=== PATIENT | female | born 2000 | race Caucasian/White ===

== ENCOUNTER 2020-12-30 11:11 | Emergency (ER) | payer OTHER, SELFPAY ==
--- NOTE | 2020-12-30 11:21 | ED.URI ---
HPI - URI/Sore Throat General Chief Complaint: Upper Respiratory Infection Stated Complaint: SOB/COUGH/FEVER/STUFFY NOSE/SORE THROAT Time Seen by Provider: 12/30/20 11:21 Source: patient and RN notes reviewed Mode of arrival: ambulatory Limitations: no limitations History of Present Illness HPI Narrative: 20-year-old female presents to the [facility] with complaints of stuffy nose, sore throat, cough, shortness of breath. The nasal symptoms and cough started yesterday, about 12 hours [employer]. Shortness of breath was when she woke up this morning but none currently. No treatment prior to arrival. Patient reports a 99.7 temp this morning and last night. 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 Patient states she has no concern for COVID-19 states she was concerned for RSV due to the Positives at work. Related Data Home Medications Medication Instructions Recorded Confirmed dextroamphetamine-amphetamine PO 12/30/20 fluoxetine mg 12/30/20 lamotrigine 12/30/20 norgestimate-ethinyl estradiol tablet 12/30/20 [Tri-Sprintec (28)] Allergies Allergy/AdvReac Type Severity Reaction Status Date / Time No Known Allergies Allergy Unverified 11/01/18 16:03 Review of Systems Review of Systems: All systems reviewed & are unremarkable except as noted in HPI and below Constitutional: Constitutional: Reports as per HPI, Denies fatigue, Reports fever(s) and Denies weakness Eyes: Eyes: Reports no additional eye complaints, Denies change in vision and Denies photophobia ENT: Reports as per HPI, Reports nasal congestion and Reports sore throat Cardiovascular: Cardiovascular: Reports no additional cardiovascular complaints and Denies chest pain Respiratory: Respiratory: Reports as per HPI, Reports cough and Reports dyspnea (this morning when she woke up) Gastrointestinal: Gastrointestinal: Reports no additional gastrointestinal complaints, Denies abdominal pain, Denies diarrhea, Denies nausea and Denies vomiting Musculoskeletal: Musculoskeletal: Reports no additional musculoskeletal complaints, Denies back pain, Denies arthralgias, Denies joint swelling and Denies muscle cramps Integumentary/Breasts: Skin/Breast: Reports system reviewed and no additional complaints, except as docu, Denies erythema and Denies rash Neurologic: Reports system reviewed and no additional complaints, except as documented, Denies dizziness, Denies headache(s) and Denies weakness Psychiatric: Psychiatric: Reports no additional psychiatric complaints Allergic/Immunologic: Allergic/Immunologic: Reports no additional allergic/immunologic complaints, Denies lip swelling, Denies throat swelling, Denies tongue swelling and Denies wheezing PMFSH Past Medical History Medical History ADHD Bipolar affect, depressed Surgical History Surgical History (Updated 12/30/20 @ 12:05 by Madison tSorm) History of surgical procedure on mouth Comments At the time of my signature, I reviewed and agree with the nursing past medical, surgical, social, and family history. There is no relevant family history pertinent to the patient complaint. Exam Const: General: healthy appearing and no acute distress Nutritional Appearance: well nourished Orientation/consciousness: patient oriented x3 Limitations: no limitations and altered mental status HENMT: Head: normal to inspection Ears: external ears normal, EAC's normal and TM abnormal wth effusion serous and with fluid behind the TM bilateral General nose exam: Nasal discharge present clear Face and sinus: sinuses nontender Mouth: Yes lip normal and Yes tongue normal Throat: postnasal drainage Eyes: Conjunctivae: conjunctivae normal Pupils: Equal, round and reactive pupils present Neck: Neck: normal visual inspection, no lymphadenopathy and no meningeal signs Chest: Chest palpation & inspection: normal inspection of the chest Resp:
[2020-12-30 11:23] VITALS: BP 124/84; PULSE 90; RESP 16; TEMP 36.9; O2SAT 100
== END 2020-12-30 11:38 | disposition home or self-care (01) ==
PROVIDERS: Emergency Provider Nurse Practitioner
DX: J06.9 Acute upper respiratory infection, unspecified (principal)
CPT/HCPCS: 99211; G0463

== ENCOUNTER 2021-03-20 11:31 | Emergency (ER) | payer OTHER, SELFPAY ==
[2021-03-20 11:37] VITALS: BP 126/82; PULSE 81; RESP 16; TEMP 36.9; O2SAT 99
[2021-03-20 11:43] VITALS: BP 129/87; PULSE 89; RESP 20; TEMP 36.8; O2SAT 99
--- NOTE | 2021-03-20 12:07 | ED.WOUNDLAC ---
HPI - Wound/Laceration General Chief Complaint: Wound/Laceration Stated Complaint: FINGER LACERATION Time Seen by Provider: 03/20/21 12:08 Source: patient and RN notes reviewed Mode of arrival: ambulatory Limitations: no limitations History of Present Illness HPI narrative: 20-year-old female presents concern for laceration to the first digit of the left hand, palmar aspect. She reports she was using a floor runner to remove the sticker from her phone when the scraper slipped and lacerated her hand, this happened prior to arrival. She denies decrease strength, sensation, range of motion to the digit. Patient is not up-to-date on her tetanus vaccination. Related Data Home Medications Medication Instructions Recorded Confirmed dextroamphetamine-amphetamine 20 mg PO DAILY 12/30/20 03/20/21 Allergies Allergy/AdvReac Type Severity Reaction Status Date / Time No Known Allergies Allergy Verified 03/20/21 11:41 Review of Systems Review of Systems: CONSTITUTIONAL: Denies malaise, chills, sweats, or fever. SKIN: Reports laceration to the first digit of the left hand MUSCULOSKELETAL: Denies muscle skeletal pain, decreased strength, sensation, range of motion NEUROLOGIC: Denies numbness, weakness. All systems reviewed & are unremarkable except as noted in HPI and below PMFSH Past Medical History Medical History ADHD Bipolar affect, depressed Surgical History Surgical History (Updated 12/30/20 @ 12:05 by Madison Storm) History of surgical procedure on mouth Comments At time of signature, agree with nursing past medical, surgical, social and family history. There is no relevant family history pertinent to the presenting complaint Exam Narrative: GENERAL: Well-appearing, well-nourished, and in no acute distress. HEAD: Normocephalic EYES: PERRLA, conjunctivae clear NECK: Supple. CHEST: Speaks in full sentences. No respiratory distress. HEART: Regular rate and rhythm. Normal and equal peripheral pulses. EXTREMITIES: First digit of left hand has normal strength and sensation. 5/5 strength with digit flexion, extension. Range of motion normal. No clubbing, cyanosis, or edema noted. No tenderness.Normal digital cascade with flexion of fingers, median, ulnar and radial nerve intact. Normal sensation of each side of finger. Can perform 'okay' sign, 'cross over finger test of index and middle fingers' and 'thumbs up' sign. No scissoring. Normal thumb opposition. Good capillary refill and radial pulse. Distal capillary refill less than 3 seconds. SKIN: Warn, dry, intact, pink. No rash. 1 cm linear laceration, superficial noted to the lateral palmar aspect of the first digit of the left hand NEURO: Alert and oriented x3. PSYCH: Normal mood and affect Course Course Emergency Course: Discussed options of suturing versus gluing of the laceration, through shared decision making it was decided to close laceration with glue since laceration is not into the subcutaneous tissue, and is fairly superficial. Will reinforce the glue with Steri-Strips. Patient is aware of diagnosis, understands and agrees to treatment plan. Anticipatory guidance given. Patient agrees to follow-up as directed and is aware of reasons to seek care at the emergency department. Portions of this record may have been created with voice recognition software Vital Signs Vital signs: Vital Signs Temperature 98.4 F 03/20/21 11:37 Pulse Rate 81 03/20/21 11:37 Respiratory Rate 16 03/20/21 11:37 Blood Pressure 126/82 03/20/21 11:37 Pulse Oximetry 99 03/20/21 11:37 Temperature 98.3 F 03/20/21 11:43 Pulse Rate 89 03/20/21 11:43 Respiratory Rate 20 03/20/21 11:43 Blood Pressure 129/87 03/20/21 11:43 Pulse Oximetry 99 03/20/21 11:43 Reviewed. Procedures Laceration Laceration 1: Date: 03/20/21 Time: 12:14 Site: hand Side (If applicable): left
[2021-03-20] MEDS: TETANUS,DIPHTHERIA,AC PERTUSSIS ADULT (0.5 ML) BOOSTRIX IM (12:40)
== END 2021-03-20 13:00 | disposition home or self-care (01) ==
PROVIDERS: Emergency Provider Nurse Practitioner
DX: S61.012A Laceration without foreign body of left thumb without damage to nail, initial encounter (principal); W27.8XXA Contact with other nonpowered hand tool, initial encounter; Z23 Encounter for immunization; F90.9 Attention-deficit hyperactivity disorder, unspecified type
CPT/HCPCS: 12001; 90471; 90715; 99212; G0463

== ENCOUNTER 2022-02-23 18:00 | Emergency (ER) | payer OTHER, SELFPAY ==
--- NOTE | ~2022-02-23 | CT_ITS ---
EXAMINATION: CT brain wo con DATE: 02/23/2022 19:25 INDICATION: hit head on floor . TECHNIQUE: Computed tomography (CT) of the head was performed without intravenous contrast. The mA wa s adjusted according to patient size. Iterative reconstruction technique was employed. The dose-lengt h product was 605.33 mGy-cm. COMPARISON: 11/01/2018 FINDINGS: No acute intracranial hemorrhage or extra-axial fluid collection. No hydrocephalus, mass, or herniation. No acute ischemic infarct. Unremarkable dural venous sinus attenuation. No acute osseous abnormality. The aerated spaces are clear. IMPRESSION: No acute intracranial process. Reviewed, dictated and finalized at location K.
--- NOTE | ~2022-02-23 | CT_ITS ---
EXAMINATION: CT cervical spine wo con DATE: 02/23/2022 19:28 INDICATION: hit head on floor TECHNIQUE: Computed tomography (CT) of the cervical spine was performed without intravenous contrast. Automated exposure control and iterative reconstruction technique were employed. The dose-length pro duct was 254.89 mGy-cm. COMPARISON: 11/01/2018 FINDINGS: Vertebral Body Alignment: Intact. Stable reversed cervical lordosis. Craniocervical and atlantoaxial alignment: No degenerative change. Alignment intact. Osseous structures/fracture: No evidence of a lytic or blastic process in the visualized spine. No e vidence of acute fracture. Cervical soft tissues: The paraspinal soft tissues planes are maintained. Degenerative changes: No significant degenerative changes. IMPRESSION: No acute fracture or traumatic malalignment in the cervical spine. Reviewed, dictated and finalized at location K.
[2022-02-23 18:33] VITALS: BP 128/87; PULSE 94; RESP 16; TEMP 36.7; O2SAT 100
--- NOTE | 2022-02-23 19:00 | PC.NURSE ---
hoda asif ct brain and c spine
--- NOTE | 2022-02-23 19:52 | ED.HEATRA ---
HPI - Head Injury General Chief complaint: Head Injury Stated complaint: hit head on wood floor, nausea migraine History of Present Illness HPI Narrative: 26 21-year-old female presents the emergency room for evaluation of a head injury. Patient states that she slipped on a puddle of water fell backwards and struck her head on a wood floor. Patient denies LOC or altered mental status. Patient denies nausea or vomiting. Patient denies somnolence. Patient reports mild headache. Took Tylenol and ibuprofen prior to arrival, states symptoms are improving. Related Data Home Medications Medication Instructions Recorded Confirmed dextroamphetamine-amphetamine ER 20 mg PO DAILY 12/30/20 03/20/21 20 mg 24hr capsule,extend release Allergies Allergy/AdvReac Type Severity Reaction Status Date / Time No Known Allergies Allergy Verified 02/23/22 18:39 Review of Systems Review of Systems: CONSTITUTIONAL: Denies fever, chills, or sweats. EYES: Denies visual changes, redness, or discharge. ENT: Denies rhinorrhea, congestion, sore throat, or otalgia. CARDIOVASCULAR: Denies chest pain, palpitations, or edema. RESPIRATORY: Denies cough or dyspnea. GASTROINTESTINAL: Denies abdominal pain, nausea, vomiting, or diarrhea. GENITOURINARY: Denies dysuria or hematuria. SKIN: Denies rash or itching. MUSCULOSKELETAL: Denies back pain, joint pain, or myalgia. NEUROLOGIC: Reports headache PSYCHIATRIC: Denies anxiety or depression. PMFSH Past Medical History Medical History ADHD Bipolar affect, depressed Surgical History Surgical History History of surgical procedure on mouth Exam Narrative: GENERAL: Well-appearing, well-nourished, no physical limitations, and in no acute distress. HEAD: Normocephalic, atraumatic. EYES: Conjunctivae normal, PERRLA and EOMI. ENT: External nose normal, Nares clear, no rhinorrhea or epistaxis. Mucous membranes moist. Oropharynx without tonsillar hypertrophy exudate or other lesions. External ears normal, bilateral TMs normal bilaterally CHEST: Clear to auscultation. No respiratory distress. No wheezes rales or rhonchi. No tenderness. HEART: Regular rate and rhythm. No murmur heard. Normal peripheral pulses. BACK: No cervical tenderness, step-offs, bony abnormality; FROM EXTREMITIES: Normal range of motion. No edema. No clubbing or cyanosis SKIN: Warm, dry, no rash. No noted wounds NEURO: No focal deficits. Alert and oriented x3. MAEW. CN's II-XI intact bilaterally, normal gait PSYCH: Cooperative. Normal mood and affect. Course Vital Signs Vital signs: Vital Signs Temperature 36.7 C 02/23/22 18:33 Pulse Rate 94 02/23/22 18:33 Respiratory Rate 16 02/23/22 18:33 Blood Pressure 128/87 02/23/22 18:33 Pulse Oximetry 100 02/23/22 18:33 Oxygen Delivery Room Air 02/23/22 18:33 Temperature 36.7 C 02/23/22 18:33 Pulse Rate 94 02/23/22 18:33 Respiratory Rate 16 02/23/22 18:33 Blood Pressure 128/87 02/23/22 18:33 Pulse Oximetry 100 02/23/22 18:33 Oxygen Delivery Room Air 02/23/22 18:33 MDM - Head Injury Imaging Data Radiologist's impression: Impressions Head CT 02/23/22 19:30 IMPRESSION: No acute intracranial process. Cervical Spine CT 02/23/22 19:33 IMPRESSION: No acute fracture or traumatic malalignment in the cervical spine. Discharge Plan Discharge Clinical Impression: Closed head injury Patient Disposition: Home, Self-Care Condition: Stable Instructions: Antibiotic Form, Concussion (ED), Head Injury (ED) Additional Instructions: Continue taking Tylenol and ibuprofen as needed for headaches. Prescriptions: No Action dextroamphetamine-amphetamine 20 mg capsule,extended release 24hr 20 mg PO DAILY Follow-up/Referrals: PHYSICIAN NOT ON STAFF,NONSTAFF [Primary Care
== END 2022-02-23 20:12 | disposition home or self-care (01) ==
PROVIDERS: Emergency Provider Nurse Practitioner Family
DX: S09.90XA Unspecified injury of head, initial encounter (principal); F90.9 Attention-deficit hyperactivity disorder, unspecified type; F31.9 Bipolar disorder, unspecified; W01.0XXA Fall on same level from slipping, tripping and stumbling without subsequent striking against object, initial encounter
CPT/HCPCS: 70450; 72125; 99284

== ENCOUNTER 2022-03-28 10:21 | Emergency (ER) | payer OTHER, SELFPAY ==
[2022-03-28 10:46] VITALS: BP 136/92; PULSE 91; RESP 18; TEMP 36.8; O2SAT 100
--- NOTE | 2022-03-28 10:54 | ED.WOUNDLAC ---
HPI - Wound/Laceration General Chief Complaint: Wound/Laceration Stated Complaint: laceration rt foot Time Seen by Provider: 03/28/22 10:50 Source: patient Mode of arrival: ambulatory Limitations: no limitations History of Present Illness HPI narrative: Nathalie is a 21-year-old female patient presenting to clinic today with complaints of a laceration to her right bottom foot. She reports that she stepped on glass Monday night and this cut her foot. She reports that she stay place super glue on it to close it. Tetanus shot is up-to-date. States that it is very painful to walk on and is concerned that it may be infected. Related Data Home Medications Medication Instructions Recorded Confirmed dextroamphetamine-amphetamine ER 20 mg PO DAILY 12/30/20 03/28/22 20 mg 24hr capsule,extend release Allergies Allergy/AdvReac Type Severity Reaction Status Date / Time No Known Allergies Allergy Verified 03/28/22 10:48 Review of Systems Review of Systems: Pertinent positives per HPI. Patient denies any fever, chills, rash, headache, visual changes, dizziness, cough, runny nose, sore throat, shortness of breath, chest pain, palpitations, nausea, vomiting, diarrhea, constipation, abdominal pain, or any urinary issues. PMFSH Past Medical History Medical History ADHD Bipolar affect, depressed Surgical History Surgical History History of surgical procedure on mouth Comments At the time of my signature, I reviewed and agree with the nursing past medical, surgical, social, and family history. There is no relevant family history pertinent to the patient complaint. Exam Narrative: General: Well-developed, well nourished, in no apparent distress Head: Normocephalic, atraumatic. Cardio: Regular rate and rhythm, s1 and s2 normal, no murmur appreciated. Resp: Clear to auscultation bilaterally, no rhonchi, rales, wheezing or rubs. Integumentary: [place], warm, and dry, flap laceration to the bottom of the rib right midfoot flap that has been closed with super glue by patient. Area is mildly tender to palpation. No redness or swelling noted. No purulent discharge. No palpable abscess Course Course Emergency Course: Portions of this record may have been created with voice recognition software. Level of Care: Express Care Visit Vital Signs Vital signs: Vital Signs Temperature 36.8 C 03/28/22 10:46 Pulse Rate 91 03/28/22 10:46 Respiratory Rate 18 03/28/22 10:46 Blood Pressure 136/92 H 03/28/22 10:46 Pulse Oximetry 100 03/28/22 10:46 Oxygen Delivery Room Air 03/28/22 10:46 Temperature 36.8 C 03/28/22 10:46 Pulse Rate 91 03/28/22 10:46 Respiratory Rate 18 03/28/22 10:46 Blood Pressure 136/92 H 03/28/22 10:46 Pulse Oximetry 100 03/28/22 10:46 Oxygen Delivery Room Air 03/28/22 10:46 Vital signs reviewed MDM - Wound/Laceration MDM Narrative Medical decision making narrative: At the time of visit patient is resting comfortably on the exam table. Patient has a closed wound to the right foot. Tetanus shot is up today. I see no signs of infection at this time. Supportive measures with observation discussed with the patient she voiced understanding of discharge instructions and agrees to treatment plan. Discharge Plan Discharge Clinical Impression: Laceration of foot Qualifiers: Encounter type: initial encounter Laterality: right Qualified Code(s): S91.311A - Laceration without foreign body, right foot, initial encounter Patient Disposition: Home, Self-Care Condition: Stable Instructions: Antibiotic Form Additional Instructions: Keep wound clean and dry May apply triple antibiotic ointment over the area twice daily times 48 hours Follow-up with your PCP in 3-5 days if symptoms persist or sooner if they worsen Watch for signs and symptoms
== END 2022-03-28 11:01 | disposition home or self-care (01) ==
PROVIDERS: Emergency Provider Nurse Practitioner Family
DX: S91.311A Laceration without foreign body, right foot, initial encounter (principal); W25.XXXA Contact with sharp glass, initial encounter; F90.9 Attention-deficit hyperactivity disorder, unspecified type
CPT/HCPCS: 99212; G0463

== ENCOUNTER 2022-09-09 20:51 | Emergency (ER) | payer OTHER, SELFPAY ==
[2022-09-09 20:58] VITALS: BP 139/88; PULSE 105; RESP 20; TEMP 36.6; O2SAT 99
--- NOTE | 2022-09-09 22:36 | PC.NURSE ---
Called for blood draw, no answer
--- NOTE | 2022-09-09 22:58 | PC.NURSE ---
Called pt a second time with no answer
== END 2022-09-09 23:06 | disposition left against medical advice (07) ==
DX: R10.31 Right lower quadrant pain (principal)
CPT/HCPCS: 99199

== ENCOUNTER 2022-12-24 01:54 | Emergency (ER) | payer OTHER, SELFPAY ==
--- NOTE | ~2022-12-24 | XR_ITS ---
EXAMINATION: XR tibia fibula RT 2V INDICATION: Right leg pain TECHNIQUE: Two views of the right tibia and fibula are obtained on three radiographs COMPARISON: None available FINDINGS: There is soft tissue swelling anterior to the distal tibia. Bone alignment is normal. There is no fracture. IMPRESSION: 1. Soft tissue swelling without acute osseous abnormality. Reviewed, dictated and finalized at location A.
[2022-12-24 02:02] VITALS: BP 137/90; PULSE 91; RESP 20; TEMP 36.8; O2SAT 99
--- NOTE | 2022-12-24 03:48 | ED.GENADULT ---
HPI - General Adult General Chief complaint: Extremity Injury, Lower Stated complaint: right foot injury Time Seen by Provider: 12/24/22 03:02 History of Present Illness HPI narrative: This is a 22-year-old female presenting ED with chief complaint of right barnes pain. the patient is was walking when she stepped into a PVC pipe and suffered an abrasion to her right barnes. She has been able to ambulate since then. She has not taken anything for pain. Patient admits to alcohol use. Related Data Home Medications Medication Instructions Recorded Confirmed dextroamphetamine-amphetamine ER 20 mg PO DAILY 12/30/20 03/28/22 20 mg 24hr capsule,extend release Allergies Allergy/AdvReac Type Severity Reaction Status Date / Time No Known Allergies Allergy Verified 12/24/22 02:49 [facility] Past Medical History Medical History ADHD Bipolar affect, depressed Surgical History Surgical History History of surgical procedure on mouth Exam Narrative: APPEARANCE: No apparent distress. Head: atraumatic. EYES: EOMI, NOSE: Atraumatic NECK: Trachea midline RESPIRATORY: No increased rate of breathing CARDIOVASCULAR: RRR, ABDOMINAL: Non-distended MUSCULOSKELETAl: Focal exam of the right lower extremity revealed a superficial abrasion over the right barnes with mild swelling. No significant bruising. No pain in the ankle or knee or foot. NEURO: Alert. Moving 4/4 extremities SKIN:: Small abrasion over the right barnes. PSYCHIATRIC: Normal affect Course Vital Signs Vital signs: Vital Signs Temperature 98.2 F 12/24/22 02:02 Pulse Rate 91 12/24/22 02:02 Respiratory Rate 20 12/24/22 02:02 Blood Pressure 137/90 12/24/22 02:02 Pulse Oximetry 99 12/24/22 02:02 Oxygen Delivery Room Air 12/24/22 02:02 Temperature 98.2 F 12/24/22 02:02 Pulse Rate 91 12/24/22 02:02 Respiratory Rate 20 12/24/22 02:02 Blood Pressure 137/90 12/24/22 02:02 Pulse Oximetry 99 12/24/22 02:02 Oxygen Delivery Room Air 12/24/22 02:02 Medical Decision Making [facility] Narrative Medical decision making narrative: -Presentation: 22-year-old female presenting with a barnes injury. 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 -Discussion of Management/Consultants: none -Dx tests considered but not ordered: none -Procedures: none -Interventions: Motrin, Tylenol -Shared decision making / Disposition: patient discharged. -RX Motrin, Tylenol Vital Signs Vital Signs: Vital Signs Temperature 98.2 F 12/24/22 02:02 Pulse Rate 91 12/24/22 02:02 Respiratory Rate 20 12/24/22 02:02 Blood Pressure 137/90 12/24/22 02:02 Pulse Oximetry 99 12/24/22 02:02 Oxygen Delivery Room Air 12/24/22 02:02 Temperature 98.2 F 12/24/22 02:02 Pulse Rate 91 12/24/22 02:02 Respiratory Rate 20 12/24/22 02:02 Blood Pressure 137/90 12/24/22 02:02 Pulse Oximetry 99 12/24/22 02:02 Oxygen Delivery Room Air 12/24/22 02:02 Discharge Plan Discharge Clinical Impression: Abrasion Patient Disposition: Home, Self-Care Condition: Stable Instructions: Antibiotic Form, Abrasion (ED) Additional Instructions: Please take Motrin Tylenol for pain. Please return if you develop signs of infection. Prescriptions: New ibuprofen 800 mg tablet 800 mg PO TID PRN (Reason: pain) 7 Days Qty: 21 0RF acetaminophen 500 mg tablet 1,000 mg PO TID PRN (Reason: alonzo) 7 Days Qty: 42 0RF No Action dextroamphetamine-amphetamine 20 mg capsule,ext
[2022-12-24] MEDS: ACETAMINOPHEN 500 MG TABLET 1000 MG PO (04:38)
[2022-12-24] MEDS: IBUPROFEN 400 MG TABLET 800 MG PO (04:40)
[2022-12-24 04:42] VITALS: BP 138/85; PULSE 91; RESP 20; O2SAT 100
== END 2022-12-24 04:43 | disposition home or self-care (01) ==
PROVIDERS: Emergency Provider Emergency Medicine
DX: S80.811A Abrasion, right lower leg, initial encounter (principal); F90.9 Attention-deficit hyperactivity disorder, unspecified type; F31.9 Bipolar disorder, unspecified; W18.39XA Other fall on same level, initial encounter
CPT/HCPCS: 73590; 99283; A9270

== ENCOUNTER 2023-03-16 11:58 | Emergency (ER) | payer OTHER, SELFPAY ==
[2023-03-16] VITALS (7 sets, daily range): BP systolic 145; BP diastolic 101; PULSE 95–116; RESP 20; TEMP 36.8; O2SAT 100
--- NOTE | ~2023-03-16 | XR_ITS ---
EXAMINATION: XR chest 2V DATE: 03/16/2023 12:29 INDICATION: Cough and wheezing. Shortness of breath. TECHNIQUE: Frontal and lateral views of the chest were obtained. COMPARISON: None. FINDINGS: There is no pneumonia, pleural effusion, or pneumothorax. The heart size is normal. IMPRESSION: 1. No acute cardiopulmonary disease. Reviewed, dictated and finalized at location E.
--- NOTE | 2023-03-16 12:06 | ED.URI ---
HPI - URI/Sore Throat General Chief Complaint: Upper Respiratory Infection Stated Complaint: SOB, cough Time Seen by Provider: 03/16/23 12:03 History of Present Illness HPI Narrative: Patient is a 22-year-old female who presents to the emergency department this afternoon complaining of a cough and shortness of breath. Patient states that her symptoms initially started approximately 1 month ago and she saw her primary care physician who placed her on an antibiotic and some cough medications. At that time her COVID swabs were negative. Patient states that she finished the dose of antibiotics, however, she continues to have a dry cough and shortness of breath. Patient then saw her primary care physician again this week on Monday and he placed her on levofloxacin, benzonatate, and an inhaler for bronchitis. Patient states that she took a home COVID test a few days ago which was negative. Patient started the medications she was prescribed yesterday and has only had 1 dose of the antibiotics and the benzonatate. 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 Currently there is a large number of hand foot and mouth disease in her daycare. Patient denies any chest pain, nausea, vomiting, abdominal pain, dysuria, hematuria, constipation, diarrhea, melena, hematochezia, fevers or chills. She also denies any headaches, dizziness, lightheadedness, blurry visions, dizziness, focal weakness, numbness and or tingling. There are no other modifying, alleviating, or precipitating factors at this time. Related Data Home Medications Medication Instructions Recorded Confirmed No Home Medications 03/16/23 03/16/23 Allergies Allergy/AdvReac Type Severity Reaction Status Date / Time No Known Allergies Allergy Verified 03/16/23 12:05 Review of Systems Review of Systems: All systems are reviewed and are negative unless stated otherwise in the HPI. [facility] Past Medical History Medical History ADHD Bipolar affect, depressed Surgical History Surgical History History of surgical procedure on mouth Exam Narrative: General: Alert, awake, afebrile, in no acute distress. HEENT: PERRL, no rhinorrhea, no post nasal drip, oropharynx clear. Neck: Trachea midline, no JVD, no lymphadenopathy. Cardiovascular: Regular rate and rhythm, no murmurs, rubs or gallops, no peripheral edema. Respiratory: Diffuse bilateral wheezing worse in the left lower lung field, no tachypnea, no rhonchi, no rubs, no respiratory distress. Abdomen: Soft, nontender, nondistended, no rebound, no guarding, no peritoneal signs. Musculoskeletal: No joint swelling or deformity, normal muscle tone. Skin: No rashes or petechia, no signs of infection. Psychiatric: Alert and oriented, normal behavior and judgment for situation. Neurological: Alert and oriented to person, place, and time. Follows all commands. No focal deficits, speech is clear and fluent. Course Vital Signs Vital signs: Vital Signs Temperature 98.2 F 03/16/23 11:59 Pulse Rate 107 H 03/16/23 11:59 Respiratory Rate 20 03/16/23 11:59 Blood Pressure 145/101 H 03/16/23 11:59 Pulse Oximetry 100 03/16/23 11:59 Oxygen Delivery Room Air 03/16/23 11:59 Temperature 98.2 F 03/16/23 11:59 Pulse Rate 116 H 03/16/23 13:22 Respiratory Rate 20 03/16/23 13:22 Blood Pressure 145/101 H 03/16/23 11:59 Pulse Oximetry 100 03/16/23 11:59 Oxygen Delivery Room Air 03/16/23 11:59 MDM - URI/Sore Throat MDM Narrative Medical decision making narrative: The patient was evaluated by myself in the emergency department. History is obtained from patient who is an independent historian and physical exam was performed. External medical records were reviewed at this time. IV was established and pertinent tests we
--- NOTE | 2023-03-16 12:07 | ECG_ITS ---
Measurements Intervals [place] Rate: 98 P: 63 MA: 151 QRS: 23 QRSD: 84 T: 14 QT: 289 QTc: 370 Interpretive Statements SINUS RHYTHM POSSIBLE LEFT ATRIAL ENLARGEMENT BORDERLINE ST-T WAVE ABNORMALITY- ANTEROLAT/INF LEADS BASELINE WANDER- III, V4-V6 BORDERLINE ECG NO PREVIOUS ECG AVAILABLE FOR COMPARISON Electronically Signed On 03-16-2023 14:21:08 CDT by Geovany Wisdom D.O.
[2023-03-16] MEDS: ALBUTEROL SULFATE NEB 2.5 MG/3 ML INH INHALATION ×3 (12:39→13:03)
[2023-03-16] MEDS: IPRATROPIUM BR 0.02% INH SOLN 0.5 MG/2.5 ML VIAL INHALATION ×3 (12:40→13:03)
[2023-03-16 13:00] LABS: Influenza A QL RT-PCR Negative (Negative); Influenza B QL RT-PCR Negative (Negative); RSV RNA, RT-PCR Negative (Negative); SARS-CoV-2 RNA PCR Negative (Negative)
== END 2023-03-16 14:20 | disposition home or self-care (01) ==
PROVIDERS: Emergency Provider Emergency Medicine
DX: J06.9 Acute upper respiratory infection, unspecified (principal); J40 Bronchitis, not specified as acute or chronic; Z20.822 Contact with and (suspected) exposure to COVID-19
CPT/HCPCS: 71046; 87637; 93005; 94640; 99285

== ENCOUNTER 2024-01-28 18:34 | Emergency (ER) | payer SELFPAY ==
--- NOTE | ~2024-01-28 | CT_ITS ---
CT brain wo con Ordering provider: Ronadl Peterson MD History: 23 years Female with . fall . Comparison: None. Technique: CT of the head without contrast. Radiation reduction technique utilized.The dose-length product was 529.67 mGy-cm. FINDINGS: BRAIN PARENCHYMA AND CSF SPACES: No midline shift, mass effect or hemorrhage. The brain parenchyma a nd CSF spaces are otherwise normal. VISUALIZED PARANASAL SINUSES: Minimal left ethmoid sinus disease. MASTOIDS: Well aerated. BONES: The bones appear intact. SOFT TISSUES: Visualized nasopharynx is normal. Superficial soft tissues are normal. IMPRESSION: No acute intracranial findings. Reviewed, dictated and finalized at location A.
--- NOTE | ~2024-01-28 | CT_ITS ---
CT cervical spine wo con Ordering provider: Ronald Peterson History: . fall . Comparison: February 23, 2022 Technique: CT of the cervical spine was performed without contrast. Sagittal and coronal reformatted images were also obtained and reviewed. Automated exposure control and iterative reconstruction aaliyah hnique were employed. The dose-length product was 392.23 mGy-cm. FINDINGS: VERTEBRAE: No subluxation or acute fracture. The occipital condyles are intact. DISC SPACES: Normal. Evaluation of the neural foramina and central canal are limited without intrath ecal contrast. PARASPINOUS SOFT TISSUES: Right and left parapharyngeal lymph nodes. The largest measures 1.1 cm. IMPRESSION: No acute osseous abnormality cervical spine. Reviewed, dictated and finalized at location A.
[2024-01-28 19:18] VITALS: BP 130/95; PULSE 78; RESP 14; TEMP 36.8; O2SAT 100
--- NOTE | 2024-01-28 20:44 | ED.FALL ---
HPI - Fall General Chief Complaint: Fall Stated Complaint: requesting a neck xray Time Seen by Provider: 01/28/24 20:10 Source: patient Mode of arrival: ambulatory Limitations: no limitations History of Present Illness HPI Narrative: This is a 23 year old female that presents to the ER for a fall last night with head injury. Reports she was seated on the edge of a hot tub and fell off backwards and hit her head. She did not lose consciousness. Reports she has had headaches and neck pain today. Denies vomiting, numbness or weakness. Related Data Home Medications Medication Instructions Recorded Confirmed No Home Medications 03/16/23 03/16/23 Allergies Allergy/AdvReac Type Severity Reaction Status Date / Time gluten Allergy Gastrointestinal Verified 01/28/24 18:37 Upset Review of Systems Review of Systems: CONSTITUTIONAL: Denies fever EYES: Denies visual changes MUSCULOSKELETAL: Reports myalgia. NEUROLOGIC: Reports headache. Denies numbness, or weakness. All systems reviewed & are unremarkable except as noted in HPI and below PMFSH Past Medical History Medical History ADHD Bipolar affect, depressed Surgical History Surgical History History of surgical procedure on mouth Social History Social History (Updated 01/28/24 @ 20:45 by Erin Cruz PA-C) Smoking status: Current some day smoker Exam Narrative: GENERAL: Well-appearing, well-nourished, and in no acute distress. HEAD: Normocephalic, atraumatic. EYES: PERRLA and EOMI. ENT: Nares clear, no rhinorrhea or epistaxis. Mucous membranes moist. Oropharynx without tonsillar hypertrophy exudate or other lesions. Bilateral TMs pearly sosa non-bulging NECK: Supple. No adenopathy or masses. CHEST: Clear to auscultation. No respiratory distress. No wheezes rales or rhonchi HEART: Regular rate and rhythm. No murmur heard. Normal peripheral pulses. EXTREMITIES: Normal range of motion. No edema. strength equal in bilateral upper and lower extremities (5/5) SKIN: Warm, dry, no rash. NEURO: No focal deficits. Alert and oriented x3. cranial nerves 2-12 grossly PSYCH: Normal mood and affect Course Course Emergency Course: patient updated on workup and agrees with plan of care Vital Signs Vital signs: Vital Signs Temperature 98.3 F 01/28/24 19:18 Pulse Rate 78 01/28/24 19:18 Respiratory Rate 14 01/28/24 19:18 Blood Pressure 130/95 H 01/28/24 19:18 Pulse Oximetry 100 01/28/24 19:18 Temperature 98.3 F 01/28/24 19:18 Pulse Rate 78 01/28/24 19:18 Respiratory Rate 14 01/28/24 19:18 Blood Pressure 130/95 H 01/28/24 19:18 Pulse Oximetry 100 01/28/24 19:18 MDM - Fall MDM Narrative Medical decision making narrative: Patient presents to the ER after a fall last night with headache and neck pain. she is neurologically intact. CT brain and cervical spine without acute findings. Patient was instructed on further care of concussion. She is to follow up with primary provider. She was given warnings to return to the ER Differential Diagnosis Differential diagnosis: Likely concussion without loss of consciousness and other (subdural hematoma, cervical spine fracture, cervical strain) Imaging Data Radiologist's impression: ITS Impressions Head CT 01/28/24 18:53 IMPRESSION: No acute intracranial findings. Cervical Spine CT 01/28/24 19:07 IMPRESSION: No acute osseous abnormality cervical spine. Critical Care Time Critical Care Time Critical Care Time: No Discharge Plan Discharge Clinical Impression: Head injury Qualifiers: Encounter type: initial encounter Qualified Code(s): S09.90XA - Unspecified injury of head, initial encounter Patient Disposition: Home, Self-Care Instructions: Concussion (ED), Head Injury (ED) Additional Instructions: Return
== END 2024-01-28 21:07 | disposition home or self-care (01) ==
PROVIDERS: Emergency Provider Physician Assistant
DX: S09.90XA Unspecified injury of head, initial encounter (principal); W17.89XA Other fall from one level to another, initial encounter; F90.9 Attention-deficit hyperactivity disorder, unspecified type; F32.A Depression, unspecified; F17.210 Nicotine dependence, cigarettes, uncomplicated
CPT/HCPCS: 70450; 72125; 99284

== ENCOUNTER 2024-08-23 09:38 | Emergency (ER) | payer OTHER, SELFPAY ==
[2024-08-23] VITALS (13 sets, daily range): BP systolic 122–142; BP diastolic 89–103; PULSE 80–96; RESP 18–35; TEMP 36.6; O2SAT 99–100
--- NOTE | ~2024-08-23 | XR_ITS ---
XR chest 2V 08/23/2024 10:54 Indication: Chest pain and shortness of breath Procedure: 2 view chest Comparison: 03/16/2023 Findings: Heart size normal. No focal air space disease, pulmonary edema, pleural effusion or suspect ed pneumothorax. No acute osseous abnormality. There is dextroscoliosis of the thoracic spine. Impression: 1: No acute cardiopulmonary disease. Reviewed, dictated and finalized at location A. Impression: 1: No acute cardiopulmonary disease.
--- OUTSIDE RECORDS SUMMARY | 2024-08-23 10:03 | XMS_ITS | Clinical Summary ---
Author Organization [address] Address [address] [place] [id number] Care Team Providers Care Wool Hat Hydraulicker Name Role Phone Zoila Chicas MD Primary Care Provider [phone] Allergies No known active allergies Medications ergocalciferol (VITAMIN D2) 50,000 unit capsule take 1 capsule by oral route every week 0 0 7 Active omega 1-fem-xec-fish oil (FISH OIL) 1,000 mg (120 mg-180 mg) capsule 0 0 7 Active dextroamphetami ne-amphetamine (ADDERALL) 20 mg tablet take 1 tablet by oral route every day before breakfast 0 0 7 Active Active Problems No known active problems Encounters Date Type Department Care Team Description 06/13/2024 10:09 AM PLANTING MACHINE OPERATOR - 06/13/2024 11:59 PM PLANTING MACHINE OPERATOR Hospital Encounter [facility] [place] [address] Uncomplicated asthma, unspecified asthma severity, unspecified whether persistent Discharge Disposition: Discharge to home or self care from Last 3 Months Family History Medical History Relation Name Comments ADD / ADHD Other Family history of ADD/ADHD; Cancer Other Family history of Cancer, unknown; Depression Other Family history of Depression; Mental illness Other Family histor y of Mental illness; Relation Name Status Comments Other Social History Tobacco Use Types Packs/Day Years Used Date Smoking Tobacco: Never Assessed Comments Unknown Sex and Gender Information Value Date Recorded Sex Assigned at Not on file Legal Sex Female 2:28 PM CDT Gender Identity Not on file Sexual Orientation Not on file Obstetrics History Last Filed Vital Signs Vital Sign Reading Time Taken Comments Blood Pressure 116/82 07/06/2022 2:38 PM PLANTING MACHINE OPERATOR Pulse 88 07/06/2022 2:38 PM PLANTING MACHINE OPERATOR Temperature 36.8 C (98.2 F) 07/06/2022 2:38 PM PLANTING MACHINE OPERATOR Respiratory Rate 16 07/06/2022 2:38 PM PLANTING MACHINE OPERATOR Oxygen Saturation 99% 06/13/2024 10: 40 AM PLANTING MACHINE OPERATOR albuterol neb with PFT per protocol Inhaled Oxygen Concentration - - Weight 80.7 kg (178 lb) 07/06/2022 2:38 PM PLANTING MACHINE OPERATOR Height 175.3 cm (5' 9 ) 07/06/2022 2:38 PM PLANTING MACHINE OPERATOR Body Mass Index 26.29 07/06/2022 2:38 PM PLANTING MACHINE OPERATOR Plan of Treatment Health Maintenance Due Date Last Done Comments Cervical Cancer Screening 2000 Depression Screening 2000 Hepatitis C Screening 2000 Pneumococcal vaccine <65 (1 of 1 - PPSV23) 2006 11/07/2005, 12/27/2001, 08/30/2001, Additional history exists Regular Well Visit/Exam 18-64 2018 Covid-19 Vaccine (2023-2 5 season) 2024 07/25/2020, 06/26/2020 Influenza Vaccine (Season Ended) 2025 05/19/2016, 06/07/2013, 04/24/2012, Additional history exists DTaP/Tdap/Td Vaccine (8 - Td or Tdap) 03/20/2031 03/20/2021, 10/12/2011, 11/07/2005, Additional history exists Hepatitis B Screening Completed 12/27/2001 , 08/30/2001, 02/01/2001 Varicella Vaccines Completed 07/14/2008, 08/30/2001 HPV Vaccines Completed 03/07/2013, 0706/2012, 08/07/2012 Procedures Procedure Name Priority Date/Time Associated Diagnosis Comments PULMONARY FUNCTION TEST (PFT) Routine 06/13/2024 11:23 AM PLANTING MACHINE OPERATOR Uncomplicated asthma, unspecified asthma severity, unspecified whether persistent from Last 3 Months Results * Pulmonary Function Test - (06/13/2024 11:23 AM PLANTING MACHINE OPERATOR) FVC POST 3.81 L 06/13/2024 11:21 AM [facility] FEV1 POST 3.21 L 06/13/2024 11:21 AM [facility] [id number] 84.29 % 06/13/2024 11:21 AM [facility] GMO83-89% POST 3.45 L/s 06/13/2024 11:21 AM [facility] PEF POST 7.66 L/s 06/13/2024 11:21 AM [facility] DLCOc SB 24.08 ml/(min*mm Hg) 06/13/2024 11:21 AM [facility] DLCO/VA PRE 5.24 ml/(min*mm Hg*L) 06/13/2024 11:21 AM [facility] VA 4.60 L 06/13/2024 11:21 AM [facility] TLC PRE 4.93 L 06/13/2024 11:21 AM [facility] VC PRE 3.95 L 06/13/2024 11:21 AM [facility] IC PRE 2.63 L 06/13/2024 11:21 AM [facility] FRC PL PRE 2.28 L 06/13/2024 11:21 AM [facility] ERV PRE 1.30 L 06/13/2024 11:21 AM [facility] RV PRE 0.98 L 06/13/2024 11:21 AM [facility] RAW PRE 6.13 cmH2O*s/L 06/13/2024 11:21 AM [facility] VTG 2.03 L 06/13/2024 11:21 AM [facility] FVC PRE 3.95 L 06/13/2024 11:21 AM [facility] FEV1 PRE 3.03 L 06/13/2024 11:21 AM [facility] BNT0DAG-PCD 76.65 % 06/13/2024 11:21 AM [facility] ODG23-61% PRE 2.59 L/s 06/13/2024 11:21 AM [facility] PEF PRE 6.23 L/s 06/13/2024 11:21 AM [facility] Anatomical Region Laterality Modality PFT 06/13/2024 10:1 4 AM PLANTING MACHINE OPERATOR Impressions 06/16/2024 8:19 PM PLANTING MACHINE OPERATOR 1. Normal spirometry and lung volumes 2. Mild diffusion impairment Electronically signed by Waqas Li MD Pulmonary & Critical Care Narrative 06/16/2024 8:19 PM PLANTING MACHINE OPERATOR PULMONARY FUNCTION TESTS Nathalie Lara 23 y.o. 06/16/2024 INTERPRETATION Please see technologist's comments mentioned in attached results report. SPIROMETRY: Pre bronchodilator FEV1 is 79 % predicted, FVC is 88 % predicted, FEV1/FVC is 0.77. Post-bronchodilator FEV1 83% predicted, FVC 85% predicted, FEV1/FVC 0.84 Bronchodilator response: No Inspection of the patient's flow-volume loops shows: Normal configuration of the inspiratory and expiratory limbs. LUNG VOLUMES: Lung volumes by body plethysmography: TLC is 86 % predicted, RV is 62 % predicted DLCO: Unadjusted for hemoglobin and carboxyhemoglobin DLCO is 78 % predicted Joseph Aguilar MD PFT ORDERABLES Final Resul t from Last 3 Months [facility] AETNA SIGNATURE [employer] Care Teams Wool Hat Hydraulicker Relationship Specialty Start Date End Date Zoila Chicas MD [address] [place] [address] [place] [id number] PCP - General 08/18/16
--- OUTSIDE RECORDS SUMMARY | 2024-08-23 10:03 | XMS_ITS | Clinical Summary ---
Author Organization [facility] Address [address] [place] [address] Care Team Providers Care Summer Babysitter Name Role Phone Davon Valiente MD Primary Care Provider [phone] Source Comments [facility],non-owned Affiliates and Associated Physician Practices is amultiple site organization consisting of ambulatory clinics and hospital sitesin [place], [place], [place] and [place]. This disclosure is being madepursuant to the Care Everywhere program and may not contain all information available regarding this patient. Last updated 18.[facility] dermSearch Allergies No known active allergies Medications * Be aware that medications may not be up to date on this document. Alwaysverify current medications with the patient. Medication Sig Dispensed Refills Start Date End Date Status amphetamine-dextroamp hetamine XR 24hr (ADDERALL XR) 20 MG capsule Take 15 mg by mouth every morning Active ibuprofen (MOTRIN) 600 MG tablet Take 1 tablet by mouth every 8 hours as needed for Pain 20 tablet 03/01/2017 Active Cetirizine HCl (ZYRTEC PO) Active LAMOTRIGINE PO Active Norgestim-Eth Estrad Triphasic (TRINESSA, 28, PO) Active [place]-3 Fatty Acids (FISH OIL) 1000 MG capsule Take 1,000 mg by mouth Active Cholecalciferol (VITAMIN D3) 400 UNITS tablet Take 400 Units by mouth once daily Active melatonin 3 MG tablet Take 9 mg by mouth at bedtime Active Active Problems Problem Noted Date Diagnosed Date Scoliosis (and kyphoscoliosis), idiopathic Overview (02/12/2021): IMO 2021 Family History Medical History Relation Name Comments Cancer Maternal Grandmother Relation Name Status Comments Maternal Grandmother Social History Tobacco Use Types Packs/Day Years Used Date Smoking Tobacco: Never Smokeless Tobacco: Never Alcohol Use Standard Drinks/Week Comments No 0 (1 standard drink = 0.6 oz pur e alcohol) PHQ-2 Answer Date Recorded PHQ2 TOTAL SCORE 0 11/18/2020 Sex and Gender Information Value Date Recorded Sex Assigned at Not on file Gender Identity Not on file Sexual Orientation Not on file Last Filed Vital Signs Vital Sign Reading Time Taken Comments Blood Pressure 112/78 11/18/2020 4:20 PM CDT Pulse 94 11/18/2020 4:20 PM CDT Temperature 36.8 C (98.3 F) 11/18/2020 4:20 PM CDT Respiratory Rate 16 11/18/2020 4:20 PM CDT Oxygen Saturation 98% 11/18/2020 4:20 PM CDT Inhaled Oxygen Concentration - - Weight 81.6 kg (180 lb) 11/18/2020 4:20 PM CDT Height 175.3 cm (5' 9 ) 11/18/2020 4:20 PM CDT Body Mass Index 26.58 11/18/2020 4:20 PM CDT Plan of Treatment Health Maintenance Due Date Last Done Comments PAP SMEAR 2000 HIV SCREENING 07/28/2015 HPV VACCINE (1 - 3-dose series) 07/28/2015 CHLAMYDIA/GONORRHEA SCREENING 2016 HEPATITIS C SCREENING 07/23/2018 DTAP/TDAP/TD VACCINES (1 - Tdap) 07/28/2019 HEPATITIS B VACCINE (1 of 3 - 19+ 3-dose series) 07/28/2019 COVID-19 VACCINE (3 - 2023-2 5 season) 2024 07/25/2020, 06/26/2020 DEPRESSION SCREENING 05/15/2024 INFLUENZA VACCINE (Season Ended) 2025 06/07/2013 ZOSTER VACCINE (1 of 2) 2050 HIB VACCINE Aged Out No longer eligi ble based on patient's age to complete this topic MENINGOCOCCAL (Group B) VACCINE SHARED DECISION-MAKING Aged Out No longer eligible based on patient's age to complete this topic MENINGOCOCCAL GROUPS A/C/Y/W VACCINE Aged Out No longer eligible b ased on patient's age to complete this topic PNEUMOCOCCAL VACCINE Aged Out No long er eligible based on patient's age to complete this topic Care Teams Summer Babysitter Relationship Specialty Start Date End Date Davon Valiente MD [address] [id number] PCP - General Allergy and Immunology 06/06/18
--- OUTSIDE RECORDS SUMMARY | 2024-08-23 10:03 | XMS_ITS | Referral Summary ---
Author Organization [address] Address [address] [place] [id number] Care Team Providers Care Service Officer Name Role Phone Zoila Chicas MD Primary Care Provider [phone] Encounters Date Type Department Care Team Description 06/13/2024 10:09 AM VOICE OVER ANNOUNCER - 06/13/2024 11:59 PM VOICE OVER ANNOUNCER Hospital Encounter [facility] [address] [place] [address] Uncomplicated asthma, unspecified asthma severity, unspecified whether persistent Discharge Disposition: Discharge to home or self care from Last 3 Months Allergies No known active allergies Medications ergocalciferol (VITAMIN D2) 50,000 unit capsule take 1 capsule by oral route every week 0 0 7 Active omega 0-njc-mvv-fish oil (FISH OIL) 1,000 mg (120 mg-180 mg) capsule 0 0 7 Active dextroamphetami ne-amphetamine (ADDERALL) 20 mg tablet take 1 tablet by oral route every day before breakfast 0 0 7 Active Active Problems No known active problems Social History Tobacco Use Types Packs/Day Years Used Date Smoking Tobacco: Never Assessed Comments Unknown Sex and Gender Information Value Date Recorded Sex Assigned at Not on file Legal Sex Female 2:28 PM CDT Gender Identity Not on file Sexual Orientation Not on file Last Filed Vital Signs Vital Sign Reading Time Taken Comments Blood Pressure 116/82 07/06/2022 2:38 PM VOICE OVER ANNOUNCER Pulse 88 07/06/2022 2:38 PM VOICE OVER ANNOUNCER Temperature 36.8 C (98.2 F) 07/06/2022 2:38 PM VOICE OVER ANNOUNCER Respiratory Rate 16 07/06/2022 2:38 PM VOICE OVER ANNOUNCER Oxygen Saturation 99% 06/13/2024 10: 40 AM VOICE OVER ANNOUNCER albuterol neb with PFT per protocol Inhaled Oxygen Concentration - - Weight 80.7 kg (178 lb) 07/06/2022 2:38 PM VOICE OVER ANNOUNCER Height 175.3 cm (5' 9 ) 07/06/2022 2:38 PM VOICE OVER ANNOUNCER Body Mass Index 26.29 07/06/2022 2:38 PM VOICE OVER ANNOUNCER Plan of Treatment Not on file Procedures Procedure Name Priority Date/Time Associated Diagnosis Comments PULMONARY FUNCTION TEST (PFT) Routine 06/13/2024 11:23 AM VOICE OVER ANNOUNCER Uncomplicated asthma, unspecified asthma severity, unspecified whether persistent from Last 3 Months Results * Pulmonary Function Test - (06/13/2024 11:23 AM VOICE OVER ANNOUNCER) FVC POST 3.81 L 06/13/2024 11:21 AM [facility] FEV1 POST 3.21 L 06/13/2024 11:21 AM [facility] [id number] 84.29 % 06/13/2024 11:21 AM [facility] TZF13-41% POST 3.45 L/s 06/13/2024 11:21 AM [facility] PEF POST 7.66 L/s 06/13/2024 11:21 AM [facility] DLCOc SB 24.08 ml/(min*mm Hg) 06/13/2024 11:21 AM [facility] DLCO/VA PRE 5.24 ml/(min*mm Hg*L) 06/13/2024 11:21 AM [facility] VA 4.60 L 06/13/2024 11:21 AM [facility] TLC PRE 4.93 L 06/13/2024 11:21 AM [facility] VC PRE 3.95 L 06/13/2024 11:21 AM [facility] IC PRE 2.63 L 06/13/2024 11:21 AM [facility] FRC PL PRE 2.28 L 06/13/2024 11:21 AM [facility] ERV PRE 1.30 L 06/13/2024 11:21 AM [facility] RV PRE 0.98 L 06/13/2024 11:21 AM [facility] RAW PRE 6.13 cmH2O*s/L 06/13/2024 11:21 AM [facility] VTG 2.03 L 06/13/2024 11:21 AM [facility] FVC PRE 3.95 L 06/13/2024 11:21 AM [facility] FEV1 PRE 3.03 L 06/13/2024 11:21 AM [facility] [id number] 76.65 % 06/13/2024 11:21 AM [facility] QNX48-81% PRE 2.59 L/s 06/13/2024 11:21 AM [facility] PEF PRE 6.23 L/s 06/13/2024 11:21 AM [facility] Anatomical Region Laterality Modality PFT 06/13/2024 10:1 4 AM VOICE OVER ANNOUNCER Impressions 06/16/2024 8:19 PM VOICE OVER ANNOUNCER 1. Normal spirometry and lung volumes 2. Mild diffusion impairment Electronically signed by Waqas Li MD Pulmonary & Critical Care Narrative 06/16/2024 8:19 PM VOICE OVER ANNOUNCER PULMONARY FUNCTION TESTS Nathalie Lara 23 y.o. [...] and carboxyhemoglobin DLCO is 78 % predicted us Joseph Aguilar MD PFT ORDERABLES Final Resul t from Last 3 Months Insurance [employer] I[employer] [facility] AETNA SIGNATURE [employer] Care Teams Service Officer Relationship Specialty Start Date End Date Zoila Chicas MD [address] [place] [id number] PCP - General 08/18/16
--- OUTSIDE RECORDS SUMMARY | 2024-08-23 10:03 | XMS_ITS | Data Portability ---
Author Organization [facility] [place] Address [address] [place] [address] Assessment Encounter Date Assessment Date Assessment LastModified by Organization Details LastModified Time 07/20/2022 07/20/2022 Annual gynecological exam performed. Patient will come back in a year unless there are new symptoms. [email or web address] Not available 07/20/2022 11:57:57 Plan of Treatment Reminders Order Date Submit Date Provider Last Modified By Organization Details Last Modified Time Details Appointments None recorded. Lab None recorded. Referral None recorded. Procedures None recorded. Surgeries None recorded. Imaging None recorded. Medication Orders metronidazo le 0.75 % (37.5 mg/5 gram) vaginal gel 2022 023 [place] [id number], [address] [facility], [place], [place], [id number], 3 11:53:09 Junel Fe 24 1 mg-20 mcg (24)/75 mg (4) tablet 2022 023 [facility][id number], [address] [place], [place], [id number], 3 11:52:18 Patient TargetsNo targets recorded. Patient InstructionsNo instructions recorded. Reason for Referral None Reported. Results Created Date Observation Date Name Description Value Unit Range Abnormal Flag Note LastModifiedBy Organization Detail LastModifiedTime 07/21/19 23 07/20/2022 CT/GC (ALESSANDRO) , THINP REP VIAL chlamydia trachomatis, PCR Negati ve negati ve Not Available [facility] (Lab) [address] [facility], [place], [address], 07/25/2022 20:34:34 07/21/19 23 07/20/2022 CT/GC (ALESSANDRO) , THINP REP VIAL neisseria gonorrhoeae, PCR Negati ve negati ve Not Available [facility] (Lab) [address] [facility], [place], [address], 07/25/2022 20:34:34 07/21/19 23 07/20/2022 TRICH OMONA S VAGIN BRENDA (RRNA ) trichomonas vaginalis ribosomal RNA (rrna) Negati ve negati ve Not Available [facility] (Lab) [address] [facility], [place], [address], 07/25/2022 20:34:34 Result Notes None recorded. Procedures Surgical History Date Name Laterality Status Provider Name and Address Organization Details Recorded Time dental surgical procedure completed [facility] 07/20/2022 11:31:10 Imaging Results None recorded. Procedure Notes None recorded. Medical Equipment None Reported. Allergies No known drug allergies Medications Name Sig Start Date Stop Date Status Note LastModified by Organization Details LastModified Time metronidazo le 0.75 % (37.5 mg/5 gram) vaginal gel INSERT 1 APPLICATO RFUL VAGINALLY EVERY NIGHT AT BEDTIME FOR 5 NIGHTS active Not Available Not Available No t Available amoxicillin 875 mg tablet TAKE 1 TABLET BY MOUTH EVERY 12 HOURS FOR 10 DAYS 07/20 completed Not Available Not Available Not Available dextroamphe tamine-amph etamine ER 20 mg 24hr capsule,ext end release TAKE 1 CAPSULE BY MOUTH EVERY DAY active Not Available Not Available No t Available benzonatate 100 mg capsule TAKE 1 CAPSULE BY MOUTH THREE TIMES DAILY FOR 10 DAYS 07/20 completed Not Available Not Available Not Available methylpredn isolone 4 mg tablets in a dose pack FOLLOW PACKAGE DIRECTION S 07/20 completed Not Available Not Available Not Available albuterol sulfate HFA 90 mcg/actuati on aerosol inhaler INHALE 1 TO 2 PUFFS EVERY 4 HOURS NEEDED FOR WHEEZING 07/20 completed Not Available Not Available Not Available amoxicillin 875 mg-potassiu m clavulanate 125 mg tablet TAKE 1 TABLET BY MOUTH TWICE DAILY FOR 10 DAYS 07/20 completed Not Available Not Available Not Available 1 mg-20 mcg (24)/75 mg (4) tablet TAKE 1 TABLET BY MOUTH EVERY DAY WITH MEALS active Not Available Not Available No t Available Vitals Date Recorded Body height Body mass index (BMI) Body weight Provider Name and Address Organization Details Last Updated DateTime 07/20/2022 175.26 cm 27 kg/m2 73125.97 g Leslie Arriaga [facility] 07/20/2022 11:29:40 Date Recorded Systolic blood pressure Diastolic blood pressure Provider Name and Address Organization Details Last Updated DateTime 07/20/2022 122 mm[Hg] 70 mm[Hg] Rena Reed, [facility]- [address], [place], [address], [facility] 07/20/2022 11:54:27 Social History Question Answer Notes LastModified by Organizat ion Details LastModified Time Tobacco Smoking Status Never Smoker Leslie Arriaag null, [facility] 07/20/2022 11:30:58 What Is Your Level Of Alcohol Consumption? Occasional Information not available 07/20/2022 Are You Blind Or Do You Have Difficulty Seeing? No Information not available 07/20/2022 What Is Your Level Of Caffeine Consumption? Occasional Information not available 07/20/2022 How Much Tobacco Do You Chew? None Information not available 07/20/2022 In The 14 Days Before Symptom Onset, Have You Had Close Contact With A Laboratory-confir med COVID-19 While That Case Was Ill? No Information not available 07/20/2022 In The 14 Days Before Symptom Onset, Have You Had Close Contact With A Person Who Is Under Investigation For COVID-19 While That Person Was Ill? No Information not available 07/20/2022 Have You Been To An Area Known To Be High Risk For COVID-19? No Information not available 07/20/2022 Are You Deaf Or Do You Have Serious Difficulty Hearing? No Information not available 07/20/2022 What Type Of Diet Are You Following? REGULAR Information not available 07/20/2022 What Is The Highest Grade Or Level Of School You Have Completed Or The Highest Degree You Have Received? 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 Yes Information not available 07/20/2022 Do You Use Protection During Sex? No Information not available 07/20/2022 Do You Use Your Seat Belt Or Car Seat Routinely? Yes Information not available 07/20/2022 Do You Have Smoke And Carbon Monoxide Detectors In Your Home? Yes Information not available 07/20/2022 How Much Tobacco Do You Smoke? No Information not available 07/20/2022 Do You Feel Stressed (tense, Restless, Nervous, Or Anxious, Or Unable To Sleep At Night)? [id number] Information not available 07/20/2022 Do You Use Any Illicit Or Recreational Drugs? No Information not available 07/20/2022 Do You Use Sunscreen Routinely? Yes Information not available 07/20/2022 Have You Used IV Drugs? No Information not available 07/20/2022 Sex: Unknown Functional Status Question Answer Note LastModified by Organizat ion Details LastModified Time Do you have difficulty walking or climbing stairs? No Information not available 07/20/2022 Are you able to walk? YESWOREST Information not available 07/20/2022 Are you able to care for yourself? Yes Information not available 07/20/2022 Do you have difficulty dressing or bathing? No Information not available 07/20/2022 What is your exercise level? Occasional Information not available 07/20/2022 Mental Status None recorded. Family History Relationship Description Onset Age of this Age Resolved Age Notes LastModified by Organization Details LastModified Time Unspecified Relation Family history unknown Not available 2022 11:29:55 Medical History Condition Response Allergies (Food, seasonal, environmental ) N Other Y Breast Cancer N Drug/Latex Allergies/Reactions N Blood Transfusion N Dermatologic Disorders N Lung Disease N Defects or Inherited Disease N Breast Problem N Gestational Diabetes N Hematologic disorders N Anesthesia Complications N History of STI N Deep Vein Thrombosis N Polycystic ovary syndrome N Anxiety Disorder N Autoimmune disease N Arthritis N Infertility N Polyps N Acid Reflux (GERD) N History of abnormal pap N Cancer N Stroke N Varicosities N Neurologic/Epilepsy N Endometriosis N High Cholesterol N Headaches N Fibromyalgia N Kidney Disease N Heart Problems N Kidney or Bladder Problems N Thyroid Problems N GI Problems N Eating Disorder N Anemia N Art (IVF or FET) N Psychiatric Illness N Ovarian Cancer N Diabetes N Pulmonary (TB, Asthma) N Hepatitis/Liver Disease N No Past Medical History Y Eczema N Urinary Tract Infection N Abuse/Domestic Violence N Asthma N Trauma/Violence N Depression/ depression N Heart Disease N Pre-Eclampsia N Hypertension N Osteoporosis N Thrombophilias N Gynecological History Statement/Question Response Flow Moderate Date of LMP 06/27/2022 On BCP's at Conception? N N Was last menstrual period normal Y STIs/STDs N HPV Vaccine N Duration of Flow (days) 3 Current Control Method None Frequency of Cycle (Q days) 30 Sexually Active? Y Menses Monthly Y Age of first menstrual cycle 13 Date of Last Pap Smear Sexual Problems? Yes LMP Approximate N Obstetrics History GPAL:G 0 P 0 0 0 0 Past Encounters Encounter ID Performer Location Encounter Start Date Encounter Closed Date Diagnosis/Indication Diagnosis SNOMED-CT Code Diagnosis ICD10 Code Diagnosis Note [id number] Rena Reed [facility] [address] [address] 07/20/2022 11:18:22 07/20/2022 12:03:44 Gynecologic examination [id number] Z01.419 Take Calcium with Vitamin D 1200mg daily if not receiving in daily diet. It is strongly advised to have an annual flu shot and up can obtain at most pharmacies . If you have not had a TDap shot in the last 10 years you should obtain one as well. Discussed with patient & provided with informatio n regarding Gardisil vaccine to prevent the 4 strains for HPV that cause cervical cancer if under age 26. Encourage safe sexual practices, to use condoms and limit partners if not already in a monogamous relationsh ip. Do monthly self breast exams. Have mammogram yearly or every other year depending on family history. BRCA testing is now available for patients with strong genetic history of female cancer. If interested contact the office. Engage in daily exercise of low impact aerobic exercise 45-60 minutes 4-5 times weekly. Avoid tobacco and illicit drugs as well as using moderation with alcohol intake less than 1-2 8 oz beverages daily. This lifestyle behavior pattern will lead to less health conditions and longer life span. If BMI greater than 25 weight watchers or dietary consult advised. Patient received above instructio ns, and questions have been answered. If you have any questions please call or respond to this email. Patient was made aware of the patient portal and may obtain a paper copy of today's plan if desired. Pap sent STD Screen sent Genetic Screen discussed Colon Screen na Dexa Screen na Routine Labs na Contracept ion care management [id number] Z30.9 Discussed all control options in great detail. Pt would like to start ocp. She is aware of the risks and benefits. She does not have any medical condition that is contraindi cated with the use of estrogen containing control. Pt will start her pills on the first monday following the start of her period. She is aware it is not effective for control the first month. She is also aware of the importance of taking at the same time every day. Encouraged use of condoms as the pill does not protect against STD's. Will return in 3 months for med check. Consent was read and signed. Pt verbalized understand ing.Advise d condoms to prevent STI but also secondary method. Vaginitis [id number] N76.0 Suspect BV on exam Health Concerns Section Related Observation LastModified by Organization Detai ls LastModified Time None Recorded Concern Status LastModified by Organization Details LastModified Time None Recorded Advance Directives Directive None Recorded Payers Encounter Date Sequence Insurance Name Policy Number Policy Cheng Covered Member ID Cheng Member ID Guarantor Name 07/20/2022 1 [facility] Fausto Page [id number] Fausto Page Notes Date Note Type Note Provider Name and Address Organization Details Recorded Time 07/20/2022 text/html Annual GYNReport ed bypatient.Menstrua l cycle:Normal menses Urinary symptoms:No hematuria; No incontinence Vulva:No genital lesion Vagina:Foul-smelli ng;Yellow-green, thick;Vaginal itching Breast:No breast pain; No breast lump; No nipple discharge Current Contraception:Yanira h control not practiced (Pull out with multiple partners) Sexual complaints:No sexual complaints; No pain during intercourse; Normal libido Menopausal Symptoms:No menopausal symptoms; Normal vaginal lubrication Psychological symptoms:No depression; No anxiety; No PMDD Preventive measures:Encourage self breast examination; Encourage regular exercise; Encourage no tobacco use; Followed with yearly pap smears Rena Reed, [facility]- [address], [place], [address], [facility] 07/20/2022 11:58:35 OBGyn Episode No OBEpisode recorded.
--- NOTE | 2024-08-23 10:34 | ECG_ITS ---
Test Date: 2024-08-23 10:58:15 Measurements Intervals [place]cer Rate: 78 P: 6 KS: 142 QRS: 47 QRSD: 84 T: 19 QT: 413 QTc: 471 Interpretive Statements SINUS RHYTHM BORDERLINE T WAVE ABNORMALITY- ANT/INF LEADS BASELINE WANDER- V3-V5 BORDERLINE ECG No previous ECG available for comparison Electronically Signed On 08-23-2024 11:05:24 CDT by Geovany Wisdom D.O.
--- NOTE | 2024-08-23 10:35 | ED_ITS ---
HPI - SOB/Dyspnea General Chief Complaint: Shortness of Breath/Dyspnea Stated Complaint: BREATHING ISSUES Time Seen by Provider: 08/23/24 10:03 History of Present Illness HPI Narrative: Patient is a 24-year-old female who presents to the ER with shortness of breath and chest pain. She reports the shortness of breath started ?a few months ago and she reports ?my right lung seems to fully expand but my left one does not. Patient also endorses left-sided chest pain that started approximately 2 days ago and worsens with ?stretching or bending over. She denies any recent fevers, shortness of breath, or acute back pain. Patient endorses intermittent wheezing. She reports she has a medical history of reactive airway disease, for which she has been prescribed an inhaler. Patient also endorses a history of celiac disease and scoliosis. She reports she has not really adopted the policy of celiac disease and has not followed up with either pulmonology or other specialities for her chronic conditions. Related Data Allergies Allergy/AdvReac Type Severity Reaction Status Date / Time gluten Allergy Gastrointestinal Verified 01/28/24 18:37 Upset Review of Systems 2 Review of Systems: All systems reviewed & are unremarkable except as noted in HPI and below PMFSH Past Medical History Medical History Bipolar affect, depressed ADHD Surgical History Surgical History History of surgical procedure on mouth Social History Social History Smoking status: Current some day smoker Exam 2 Narrative: GENERAL: Well appearing, well-nourished, non-toxic, in no acute distress. HEAD: Normocephalic, atraumatic. NECK: Supple. No adenopathy, no masses. RESPIRATORY: Airway patent, respirations nonlabored. Clear to auscultation bilaterally, no rales, rhonchi, wheezing. CARDIOVASCULAR: Regular rate and rhythm without murmurs, rubs, or gallops. Peripheral pulses 2+ and equal bilaterally. ABDOMINAL: Soft, nontender, nondistended, no hepatosplenomegaly. Normoactive BS. MUSCULOSKELETAL: Moves all extremities. Strength/ROM intact without gross deformities. SKIN: Warm, dry, normal color. No rashes. NEURO: A&O X3. Speech clear. Cranial nerves II-XII intact. No ataxic movements. PSYCHIATRIC: Appropriate mood and affect. Normal interaction. Course Vital Signs Vital signs: Vital Signs Temperature 36.6 C 08/23/24 09:47 Pulse Rate 91 08/23/24 09:47 Respiratory Rate 20 08/23/24 09:47 Blood Pressure 142/101 H 08/23/24 09:47 Pulse Oximetry 100 08/23/24 09:47 Oxygen Delivery Room Air 08/23/24 09:47 Temperature 36.6 C 08/23/24 09:47 Pulse Rate 82 08/23/24 11:59 Respiratory Rate 22 H 08/23/24 11:59 Blood Pressure 138/97 H 08/23/24 11:15 Pulse Oximetry 100 08/23/24 11:59 Oxygen Delivery Room Air 08/23/24 09:47 MDM - SOB/Dyspnea MDM Narrative Medical decision making narrative: Patient is a 24-year-old female who presents to the ER with shortness of breath and chest pain. She reports the shortness of breath started ?a few months ago and she reports ?my right lung seems to fully expand but my left one does not. Patient also endorses left-sided chest pain that started approximately 2 days ago and worsens with ?stretching or bending over. She denies any recent fevers, shortness of breath, or acute back pain. Patient endorses intermittent wheezing. She reports she has a medical history of reactive airway disease, for which she has been prescribed an inhaler. Patient also endorses a history of celiac disease and scoliosis. She reports she has not really adopted the policy of celiac disease and has not followed up with either pulmonology or other specialities for her chronic conditions. Labs Ordered: CBC, CMP, troponin, UA, UDS, PTT, INR, d dimer Imaging Ordered: Chest x-ray Medications Ordered: Macrobid p.o. Results: Patient's chest x-ray indicated No acute cardiopulmonary disease. Diagnosis: Urinary tract infection, atypical chest pain, costochondritis Risks: HEART score: low risk HEART Score for Major Cardiac Events from [email or web address] on 08/23/2024 All calculations should be rechecked by clinician prior to use RESULT SUMMARY: 0 points Low Score (0-3 points) Risk of MACE of 0.9-1.7%. INPUTS: History ?> 0 = Slightly suspicious EKG ?> 0 = Normal Age ?> 0 = <45 Risk factors ?> 0 = No known risk factors Initial troponin ?> 0 = <=Normal limit Consults: Patient Education/Shared MDM: Results shared with patient. She will be given her first dose of Macrobid here in the ER to treat her UTI. Patient strongly advised to maintain hydration status upon discharge and follow-up with her PCP as soon as possible. She will be discharged home with a prescription for Macrobid. Strict return precautions provided. Patient verbalized understanding and is in agreement with plan. Vital signs stable at time of discharge. All questions answered. Differential Diagnosis Differential diagnosis: Likely acute exacerbation of chronic obstructive airways disease, congestive heart failure, community acquired pneumonia, asthma with exacerbation, pulmonary embolism and other (costochondritis, urinary tract infection) Lab Data Attestation: I reviewed the patient's lab results. 08/23/24 11:02 08/23/24 11:02 Labs: Lab Results 08/23/24 08/23/24 08/23/24 Range/Units 11:02 11:03 11:10 WBC 4.3 L (4.5-10.0) K/mm3 RBC 3.93 L (4.2-5.4) M/mm3 Hgb 13.4 (12.0-15.0) g/dL Hct 40.5 (37.0-47.0) % MCV 103.1 H (80-100) fl MCH 34.1 H (26-34) pg MCHC 33.1 (32-36) g/dl RDW 11.9 (11.5-14.5) % Plt Count 214 (150-375) k/mm3 MPV 9.2 (7.4-10.4) fl Immature Gran % (Auto) 0.2 (0-0.5) % Neut % (Auto) 51.1 (45.5-73.1) % Lymph % (Auto) 35.8 (18.3-44.2) % [place] % (Auto) 11.7 H (2.6-8.5) % Eos % (Auto) 0.5 (0-4.4) % Baso % (Auto) 0.7 (0.2-1.2) % Lymph # (Auto) 1.53 (0.9-3.2) K/mm3 [place] # (Auto) 0.5 (0.1-0.6) K/mm3 Eos # (Auto) 0.0 (0-0.3) K/mm3 Baso # (Auto) 0.0 (0.0-0.1) K/mm3 Abs Immat Gran (auto) 0.01 (0.00-0.031) K/mm3 Absolute Neuts (auto) 2.2 (1.3-6.7) K/mm3 Absolute Nucleated RBC 0.000 (0.0-0.012) K/mm3 Nucleated RBC % 0.0 (0.0-0.2) % PT 14.0 (11.1-14.7) Seconds INR 1.0 APTT 25.7 (22.3-36.8) Seconds D-Dimer < 0.27 (<0.48) ug/mL Sodium 139 (137-145) mmol/L Potassium 4.1 (3.4-5.0) mmol/L Chloride 100 (98-107) mmol/L Carbon Dioxide 27 (22-30) mmol/L Anion Gap 12 (4-12) mmol/L BUN 8 (7-17) mg/dL Creatinine 0.63 L (0.7-1.0) mg/dL Estim Creat Clear Calc 123 ml/min Estimated GFR > 60 (59 - ) Glucose 88 (65-110) mg/dL Calcium 9.1 (8.4-10.2) mg/dL Total Bilirubin 0.5 (0.2-1.3) mg/dL AST 54 H (14-36) U/L ALT 37 H (6-35) U/L Alkaline Phosphatase 51 (38-126) U/L Troponin I < 0.012 (0.000-0.034) ng/mL Total Protein 8.0 (6.3-8.2) g/dL Albumin 4.5 (3.5-5.1) g/dL Urine Color Yellow (Yellow) Urine Appearance Clear (Clear) Urine pH 8.0 (5.0-9.0) Ur Specific [place] 1.007 (1.001-1.035) Urine Protein Negative (Negative) mg/dL Urine Glucose (UA) Negative (Negative) mg/dL Urine Ketones Negative (Negative) mg/dL Ur Blood (Man) Negative (Negative) Urine Nitrate Negative (Negative) Urine Bilirubin Negative (Negative) Urine Urobilinogen 0.2 (<2.0) mg/dL Add Ur Microanalysis Reviewed Leukocyte Esterase Rfl 1+ H (Negative) KIAH/UL Urine RBC 0-2 (0-2) /hpf Urine WBC 0-5 (0-3) /hpf Ur Squamous Epith Cells None seen (Few) /hpf Urine Bacteria Rare /hpf Urine Casts 0-2 Urine Opiates Screen Negative (Negative) Urine Methadone Screen Negative (Negative) Ur Barbiturates Screen Negative (Negative) Ur Phencyclidine Scrn Negative (Negative) Ur Amphetamine Screen Negative (Negative) U Benzodiazepines Scrn Negative (Negative) Urine Cocaine Screen Negative (Negative) U Cannabinoids Screen Negative (Negative) Imaging Data Attestation: I personally reviewed and interpreted this imaging study as follows: Radiologist's impression: Impressions Chest X-Ray 08/23/24 10:57 Impression: 1: No acute cardiopulmonary disease. Discharge Plan Discharge Clinical Impression: Atypical chest pain, Urinary tract infection Patient Disposition: Home Condition: Stable Instructions: Antibiotic Form, Urinary Tract Infection in Women (ED), Heart Healthy Diet (ED), Noncardiac Chest Pain (ED) Additional Instructions: Please return to the ER with any worsening symptoms. Follow-up with primary care provider as soon as possible. Take all your regularly scheduled medications. Complete your full dose of antibiotics. Patient Language: Micronesian Prescriptions: New nitrofurantoin monohyd/m-cryst [Macrobid] 100 mg capsule 100 mg PO Q12H 5 Days Qty: 10 0RF Rx Instructions: must administer with a meal/food Follow-up/Referrals: UNKNOWN,DOCTOR [Primary Care Provider] - Stand Alone Forms: Work/School Release IP Time of Disposition: 13:05
--- OUTSIDE RECORDS SUMMARY | 2024-08-23 10:48 | XMS_ITS | Clinical Summary ---
Author Organization [facility] Address [address] [place] [address] Care Team Providers Care City Controller Name Role Phone Davon Valiente MD Primary Care Provider [phone] Source Comments [facility],non-owned Affiliates and Associated Physician Practices is amultiple site organization consisting of ambulatory clinics and hospital sitesin [place], [place], [place] and [place]. This disclosure is being madepursuant to the Care Everywhere program and may not contain all information available regarding this patient. Last updated 18.[facility] [employer] Allergies No known active allergies Medications * [...] Norgestim-Eth Estrad Triphasic (TRINESSA, 28, PO) Active [place]-3 Fatty Acids (FISH OIL) 1000 MG capsule [...] age to complete this topic Care Teams City Controller Relationship Specialty Start Date End Date Davon Valiente MD [id number] [id number] PCP - General Allergy and Immunology 06/06/18
--- OUTSIDE RECORDS SUMMARY | 2024-08-23 10:48 | XMS_ITS | Clinical Summary ---
Author Organization [address] Address [address] [place] [id number] Care Team Providers Care Food Processing Scientist Name Role Phone Zoila Chicas MD Primary Care Provider [phone] Allergies No known active allergies Medications ergocalciferol (VITAMIN D2) 50,000 unit capsule take 1 capsule by oral route every week 0 0 7 Active omega 7-dbs-wnz-fish oil (FISH OIL) 1,000 mg (120 mg-180 mg) capsule 0 0 7 Active dextroamphetami ne-amphetamine (ADDERALL) 20 mg tablet take 1 tablet by oral route every day before breakfast 0 0 7 Active Active Problems No known active problems Encounters Date Type Department Care Team Description 06/13/2024 10:09 AM [employer]IVESTOCK CARETAKER - 06/13/2024 11:59 PM [employer]IVESTOCK CARETAKER Hospital Encounter [facility] Res[facility] [place] [address] Uncomplicated asthma, unspecified asthma severity, [...] Comments Blood Pressure 116/82 07/06/2022 2:38 PM [employer]IVESTOCK CARETAKER Pulse 88 07/06/2022 2:38 PM [employer]STOCK CARETAKER Temperature 36.8 C (98.2 F) 07/06/2022 2:38 PM [employer]IVESTOCK CARETAKER Respiratory Rate 16 07/06/2022 2:38 PM [employer]STOCK CARETAKER Oxygen Saturation 99% 06/13/2024 10: 40 AM [employer]ST[employer] CARETAKER albuterol neb with PFT per protocol Inhaled Oxygen Concentration - - Weight 80.7 kg (178 lb) 07/06/2022 2:38 PM [employer]STOCK CARETAKER Height 175.3 cm (5' 9 ) 07/06/2022 2:38 PM [employer] CARETAKER Body Mass Index 26.29 07/06/2022 2:38 PM [employer]STOCK CARETAKER Plan of Treatment Health Maintenance Due Date [...] FUNCTION TEST (PFT) Routine 06/13/2024 11:23 AM [employer]IVESTOCK CARETAKER Uncomplicated asthma, unspecified asthma severity, unspecified whether persistent from Last 3 Months Results * Pulmonary Function Test - (06/13/2024 11:23 AM LIVESTOCK CARETAKER) FVC POST 3.81 L 06/13/2024 11:21 AM [facility] FEV1 POST 3.21 L 06/13/2024 11:21 AM [facility] [id number] 84.29 % 06/13/2024 11:21 AM [facility] QVZ64-81% POST 3.45 L/s 06/13/2024 11:21 AM [facility] PEF POST 7.66 L/s 06/13/2024 11:21 AM [facility] DLCOc SB 24.08 ml/(min*mm Hg) 06/13/2024 11:21 AM [facility] DLCO/VA PRE 5.24 ml/(min*mm Hg*L) 06/13/2024 11:21 AM [facility] VA 4.60 L 06/13/2024 11:21 AM [facility] TLC PRE 4.93 L 06/13/2024 11:21 AM [facility] VC PRE 3.95 L 06/13/2024 11:21 AM [facility] IC PRE 2.63 L 06/13/2024 11:21 AM [facility] FRC PL PRE 2.28 L 06/13/2024 11:21 AM [facility] ERV PRE 1.30 L 06/13/2024 11:21 AM [facility] RV PRE 0.98 L 06/13/2024 11:21 AM [facility] RAW PRE 6.13 cmH2O*s/L 06/13/2024 11:21 AM [facility] VTG 2.03 L 06/13/2024 11:21 AM [facility] FVC PRE 3.95 L 06/13/2024 11:21 AM [facility] FEV1 PRE 3.03 L 06/13/2024 11:21 AM [facility] [id number] 76.65 % 06/13/2024 11:21 AM [facility] AFD16-53% PRE 2.59 L/s 06/13/2024 11:21 AM [facility] PEF PRE 6.23 L/s 06/13/2024 11:21 AM [facility] Anatomical Region Laterality Modality PFT 06/13/2024 10:1 4 AM [employer]STOCK CARETAKER Impressions 06/16/2024 8:19 PM [employer]STOCK CARETAKER 1. Normal spirometry and lung volumes 2. Mild diffusion impairment Electronically signed by Waqas Li MD Pulmonary & Critical Care Narrative 06/16/2024 8:19 PM [employer]STOCK CARETAKER PULMONARY FUNCTION TESTS Nathalie Lara 23 y.o. [...] Resul t from Last 3 Months Insurance [facility] [employer] AETNA SIGNATURE [employer] Care Teams Food Processing Scientist Relationship Specialty Start Date End Date Zoila Chicas MD [address] [place] [address] [place] [id number] PCP - General 08/18/16
--- OUTSIDE RECORDS SUMMARY | 2024-08-23 10:48 | XMS_ITS | Continuity of Care Document ---
Author Organization [employer] Address [address] [place] [address] Phone Care Team Providers Care Director Agricultural Services Name Role Phone Davon Valiente MD Unavailable Unavailable Allergies, Adverse Reactions, Alerts Substance Reaction Status Criticality No Known Allergies Active No Inform ation Medications Medication Instructions Dosage Effective Dates (start - stop) Status Comments cefdinir 300 mg capsule take 1 capsule by oral route every 12 hours 300 MG - No Longer Active Procedures Procedure Date OFFICE [id number] RAPID STREP A CULTURE, PRESUMPATIVE, SCREENING ONLY Ap OFFICE [id number] COVID-19, Amplified Probe Technique INFLUENZA, RAPID INFLUENZA B, RAPID - OFFICE LAB OFFICE [id number] COVID-19, Amplified Probe Technique INFLUENZA, RAPID INFLUENZA B, RAPID - OFFICE LAB Results Test Name Date and Time Measure Units Reference Range Abnormal Flag Status Commen ts Panel Description: Rapid Strep Test Final Strep A, Rapid Negative NEGATIVE Final Panel Description: Strep Gr A Culture-OL Final Cult, Strep A (bacitracin) Negative NEGATIVE Final Advance Directives Directive Yes / No Effective Date File Name No Information Encounters Encounter Description Practice Location Reason(s) For Visit Diagnoses Date Provider Providers Copied on Encounter OFFICE [id number] [address], [place], [place], [address] , tel:[phone] [place] acute visit (chief complaint) Acute pharyngitisAllergic rhinitis, cause unspecifiedAcute sinusitis, unspecified 3 Rocco Mays. [address] [place] [address], Suite [facility], [place], [place], [address], . tel:[phone] Referring Provider: Davon Valiente, [address] [place] [address] Suite [facility], [place], [address] . tel:[phone] [facility], [address], [place], [place], [address] , tel: [phone] [place] acute visit (chief complaint) Influenza-like illnessContact with and (suspected) exposure to covid-19 2 Rocco Mays. [address] [place] [address], [place] [address], [place], [place], [address], . tel:[phone] Referring Provider: Davon Valiente, [address] [place] [address] [address] [facility], [place], [address] . tel:[phone] [facility], [address], [place], [place], [address] , tel: [phone] [place] acute visit (chief complaint) Acute gastroenteritisConta ct with and (suspected) exposure to zaccy-48Aqgldxijc-cu ke illness 2 Rocco Mays. [address] [place] [address], [address] [facility], [place], [place], [address], [place]. tel:[phone] Referring Provider: Davon Valiente, [address] [place] [address] [address] [facility], [place], [address] . tel:[phone] [facility], [address], [place], [place], [address] , tel: [phone] [place] Costochondritis, acuteAllergic rhinitis, cause unspecified 8 Rocco Mays. [address] [place] [address], [address] [facility], [place], [place], [address], . tel:[phone] Referring Provider: Davon Valiente, [address] [facility] [address], [place], [address] . tel:[phone] Family History Family Member Type Diagnosis Age At Onset No Information Payers Payer name Insurance type Covered democrat ID Authoriza tikirk(s) No Information Social History Type Description Quantity Date Captured Comments Alcohol Use Details Unknown Caffeine Use Details Unknown Tobacco Use Status No Information Smoking Status No Information Sex Female Vital Signs Date / Time: Height Weight BMI Pulse Rate Blood Pressure Temperature Respiratory Rate Body Surface Area Head Circumference Head Circ. Percentile Wt./Gopal. Percentile BMI percentile Pulse Ox Inhaled Ox 1:47 PM 83.824 kg (184.80 lbs) 97.70 F Chief Complaint And Reason For Visit From encounter dated '08/24/2022 13:45'. acute visit (chief complaint). Description: Chief complaint: sore throat cough. Symptoms started 2 weeks ago; are moderate; occur constantly; are fluctuating. Context notable for seasonal allergen. Associated symptoms include cough, decreased PO intake, fatigue, rash, sore throat, nasal congestion/drainage, post-nasal drainage, sneezing, fever and decreased activity. Pertinent negatives include vomiting.on Claritin Reason For Referral Reason For Referral No Information History Of Present Illness Encounter Date Complaint History Of Prese nt Illness acute visit Chief complaint: sore throat cough. Symptoms started 2 weeks ago; are moderate; occur constantly; are fluctuating. Context notable for seasonal allergen. Associated symptoms include cough, decreased PO intake, fatigue, rash, sore throat, nasal congestion/drainage, post-nasal drainage, sneezing, fever and decreased activity. Pertinent negatives include vomiting.on Claritin acute visit Chief complaint: cough, congestion. Symptoms started 3 days ago; are moderate; occur constantly; are worsening. Context notable for daycare attendance. Associated symptoms include abdominal pain, cough, decreased PO intake, diarrhea, fatigue, headache, nausea, vomiting, lethargy, myalgia, nasal congestion/drainage, sleep disturbance, sneezing, fever (max 100F), chills and decreased activity. 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 Associated symptoms include abdominal pain, decreased PO intake, diarrhea, fatigue, nausea, vomiting, lethargy, myalgia, nasal congestion/drainage, sleep disturbance, sneezing, fever (max 99.70F), chills and decreased activity. Pertinent negatives include cough, headache, rash, sore throat and urinary difficulty.has had covid vaccine- 2doses Functional Status Date Functional Assessmen t No Information Instructions Date Instruction Additional Infor mation Claritin and Flonase Related to Allergic rhinitis, cause unspecified Sinusitis -Sinusitis is a bacterial infection of one of the sinuses that drain into the nose. The infection usually starts with plugging of one of the sinus openings or can result from a viral upper respiratory infection that lasts more pbsn18-27 days. -Sinus infections are difficult to treat. Please complete the course of antibiotics prescribed. -Make sure you continue the antibiotics until the symptoms are gone for at least 7 days.-Acetaminophen and ibuprofen may help with symptoms of pain or fever.-If you are not any better in 7 days, please call back with progress report.-Call back for new concerning symptoms including new fever, shortness of breath, or lethargy-Call back for redness or swelling of cheeks, eyelid, or forehead Related to Acute sinusitis, unspecified Pharyngitis:-Pharyng itis is the medical term for a sore throat. It can be caused viruses, bacteria or even breathing dry air. One of the most common causes of bacterial sore throat is Streptococcus . Strep Throat . -Please use acetaminophen or ibuprofen for pain. Do not share any drinks or toothbrushes. Please encourage cold liquids/foods (i.e. popsicles, ice cream, jello/pudding, ice chips, yogurt, apple sauce, gatorade) to ensure adequate hydration. You may also use throat lozenges or Chloroseptic/Cepacol spray for pain. -If your child tested positive today for Strep Throat please take the medication as prescribed. If your child tested negative today we will call you in 24-48hrs if the streptococcus culture is positive. -Please call the office if you have increasing pain such that you are unable to swallow and become dehydrated or if you have difficulty opening your mouth-If you continue to have throat pain over the next week please return for re-evaluation. -If your symptoms having been going on for 5-7days, not getting better or associated with fever, fatigue, and lower back pain, we would consider testing your child for infectious mononucleosis (or [place] ). It is a blood test which tests for EBV. It is a virus that causes infectious mono . Patients with EBV can have an enlarged liver or spleen which can be injured during physical contact such as contact sports or PE class. While waiting for these results, or if your child tests positive, they must avoid contact sports for 4 weeks from the beginning of the illness. On occasion, we may prescribe an oral steroid to help relieve pain, swelling of the tonsils with mono to ensure adequate intake of fluids. Please take this medication as directed by your doctor. -For additional Information please see: [email or web address].com/contents/pat gjok-rzixmfudiet-zlvl-toivrn-ue-fhji dren Related to Acute pharyngitis Medication management Signs and symptoms o f infection were discussed with patient. COVID 19 screening protocol utilized.Rapid FIBERGLASS BOAT ASSEMBLY SUPERVISOR swab COVID-19 : neg Related to Contact with and (suspected) exposure to covid-19 Influenza: -This is a contagious viral illness which causes fever, cough, sore throat, headache, fatigue and achy muscles, with only occasional nausea, vomiting, or diarrhea.-Expect the fever duration to be 3-5 days and often high fevers to 102-105 degrees, but occasionally even longer.-A residual cough is likely to persist for an additional 1-2 weeks or longer after the fever breaks.-Hydration is very important. Drink lots of fluids.-Acetaminophen (every 4 hrs) or Ibuprofen (every 6 hrs) are likely to offer the best symptomatic relief as you wait for this to pass.-Please call us if you are concerned about breathing difficulties, onset of ear pain, lethargy, or if you are worried about how your child looks or for worsening symptoms- i.e. signs of dehydration.-If your child had a positive nasal swab for 'flu' and/or has only been symptomatic for the first 48hrs, you may benefit from oral antibiotics (i.e. Tamiflu). Please take the medicine as prescribed by your doctor. Related to Influenza-like illness Disease process Signs and symptoms o f infection were discussed with patient. COVID 19 screening protocol utilized.Rapid FIBERGLASS BOAT ASSEMBLY SUPERVISOR swab COVID-19 : neg Related to Contact with and (suspected) exposure to covid-19 Influenza: -This is a contagious viral illness which causes fever, cough, sore throat, headache, fatigue and achy muscles, with only occasional nausea, vomiting, or diarrhea.-Expect the fever duration to be 3-5 days and often high fevers to 102-105 degrees, but occasionally even longer.-A residual cough is likely to persist for an additional 1-2 weeks or longer after the fever breaks.-Hydration is very important. Drink lots of fluids.-Acetaminophen (every 4 hrs) or Ibuprofen (every 6 hrs) are likely to offer the best symptomatic relief as you wait for this to pass.-Please call us if you are concerned about breathing difficulties, onset of ear pain, lethargy, or if you are worried about how your child looks or for worsening symptoms- i.e. signs of dehydration.-If your child had a positive nasal swab for 'flu' and/or has only been symptomatic for the first 48hrs, you may benefit from oral antibiotics (i.e. Tamiflu). Please take the medicine as prescribed by your doctor. Related to Influenza-like illness Gastroenteritis--You r child has been diagnosed with what is commonly known as the 'stomach flu'- a viral illness with vomiting that is often brief and diarrhea that can last several days - 2 weeks. Your child will benefit from your close observation of their symptoms and your efforts to keep them from getting dehydration. I expect the vomiting to go on for 12-24 hours tapering off to no more than 1 episode per day. The diarrhea can be frequent initially and tapers off to 1-2x/day by the end of the illness. -Call our office if vomiting becomes severe, prolonged over many hours or has obvious blood or if your child has new symptoms that worry you. -Call our office if your child shows signs of dehydration including no urine/wet diapers for 8-12 hours, no tears, dry mouth or acting lethargic, or has bloody stools or if diarrhea > 2weeks. .-Infants with vomiting need extra efforts to keep from dehydration. If your infant is bottle/breast fed, an oral rehydration solution (Pedialyte, similar products) is often needed every 30-60 min once vomiting has stopped.-Try small amounts of clear fluids frequently. Try oral rehydration solution (Pedialyte, similar products) to older children who have vomiting AND diarrhea. If he/she refuses , then strength Gatorade or similar clear liquids(flat white soda, popsicles, non-sweetened Damien-aid or Jello) may be used>>1 tablespoon every 15 minutes for an hour>2 tablespoons every 15 minutes for an hour> 3 Tablespoons every 15 minutes for an hour> 4 tablespoons every 15 minutes for an hour. You may offer bland solid foods such as crackers, bread, and cereals after 6-12 hrs without vomiting and continue for next 24hrs. -Also give your child Acetaminophen(Tylenol) or Ibuprofen(Motrin/Advil) as recommended by your doctor for fever or comfort as needed. -Your child is likely contagious to other people. Please wash hands frequently when caring for them and do not share objects they have touched with other people. -Your child may return to school or daycare after vomiting and fever are gone for 24 hours. Related to Acute gastroenteritis Disease process Assessments Type Assessment Date assessment Acute pharyngitis assessment Allergic rhinitis, cause unspeci fied assessment Acute sinusitis, unspecified Aug Mental Status Date Cognitive Assessment Orientation - Jet ed to time, place, person, situation. Patient Care Teams Name Effective Dates (start - stop) Status Members No Information
--- OUTSIDE RECORDS SUMMARY | 2024-08-23 10:48 | XMS_ITS | Referral Summary ---
Author Organization [address] Address [address] [place] [address] Care Team Providers Care Interior Design Teacher Name Role Phone Zoila Chicas MD Primary Care Provider [phone] Encounters Date Type Department Care Team Description 06/13/2024 10:09 AM CIGAR WRAPPER - 06/13/2024 11:59 PM CIGAR WRAPPER Hospital Encounter [facility] [address] [place] [address] Uncomplicated asthma, unspecified asthma severity, unspecified whether persistent Discharge Disposition: Discharge to home or self care from Last 3 Months Allergies No known active allergies Medications ergocalciferol (VITAMIN D2) 50,000 unit capsule take 1 capsule by oral route every week 0 0 7 Active omega 9-bqz-oel-fish oil (FISH OIL) 1,000 mg (120 mg-180 [...] Comments Blood Pressure 116/82 07/06/2022 2:38 PM CIGAR WRAPPER Pulse 88 07/06/2022 2:38 PM CIGAR WRAPPER Temperature 36.8 C (98.2 F) 07/06/2022 2:38 PM CIGAR WRAPPER Respiratory Rate 16 07/06/2022 2:38 PM CIGAR WRAPPER Oxygen Saturation 99% 06/13/2024 10: 40 AM CIGAR WRAPPER albuterol neb with PFT per protocol Inhaled Oxygen Concentration - - Weight 80.7 kg (178 lb) 07/06/2022 2:38 PM CIGAR WRAPPER Height 175.3 cm (5' 9 ) 07/06/2022 2:38 PM CIGAR WRAPPER Body Mass Index 26.29 07/06/2022 2:38 PM CIGAR WRAPPER Plan of Treatment Not on file Procedures Procedure Name Priority Date/Time Associated Diagnosis Comments PULMONARY FUNCTION TEST (PFT) Routine 06/13/2024 11:23 AM CIGAR WRAPPER Uncomplicated asthma, unspecified asthma severity, unspecified whether persistent from Last 3 Months Results * Pulmonary Function Test - (06/13/2024 11:23 AM CIGAR WRAPPER) FVC POST 3.81 L 06/13/2024 11:21 AM [facility] FEV1 POST 3.21 L 06/13/2024 11:21 AM [facility] [id number] 84.29 % 06/13/2024 11:21 AM [facility] JJI02-26% POST 3.45 L/s 06/13/2024 11:21 AM [facility] PEF POST 7.66 L/s 06/13/2024 11:21 AM [facility] DLCOc SB 24.08 ml/(min*mm Hg) 06/13/2024 11:21 AM [facility] DLCO/VA PRE 5.24 ml/(min*mm Hg*L) 06/13/2024 11:21 AM [facility] VA 4.60 L 06/13/2024 11:21 AM [facility] TLC PRE 4.93 L 06/13/2024 11:21 AM [facility] VC PRE 3.95 L 06/13/2024 11:21 AM [facility] IC PRE 2.63 L 06/13/2024 11:21 AM [facility] FRC PL PRE 2.28 L 06/13/2024 11:21 AM [facility] ERV PRE 1.30 L 06/13/2024 11:21 AM [facility] RV PRE 0.98 L 06/13/2024 11:21 AM [facility] RAW PRE 6.13 cmH2O*s/L 06/13/2024 11:21 AM [facility] VTG 2.03 L 06/13/2024 11:21 AM [facility] FVC PRE 3.95 L 06/13/2024 11:21 AM [facility] FEV1 PRE 3.03 L 06/13/2024 11:21 AM [facility] [id number] 76.65 % 06/13/2024 11:21 AM [facility] IAW51-81% PRE 2.59 L/s 06/13/2024 11:21 AM [facility] PEF PRE 6.23 L/s 06/13/2024 11:21 AM [facility] Anatomical Region Laterality Modality PFT 06/13/2024 10:1 4 AM CIGAR WRAPPER Impressions 06/16/2024 8:19 PM CIGAR WRAPPER 1. Normal spirometry and lung volumes 2. Mild diffusion impairment Electronically signed by Waqas Li MD Pulmonary & Critical Care Narrative 06/16/2024 8:19 PM CIGAR WRAPPER PULMONARY FUNCTION TESTS Nathalie Lara 23 y.o. [...] from Last 3 Months Insurance CIGNA IBEW [facility]ETNA SIGNATURE CIGNA IBEW Care Teams Interior Design Teacher Relationship Specialty Start Date End Date Zoila Chicas MD [address] [place] [address] [place] [id number] PCP - General 08/18/16
[2024-08-23 11:17] LABS: Basophils Percent Auto 0.7 % (0.2-1.2); Eosinophils Percent Auto 0.5 % (0-4.4); Hematocrit 40.5 % (37.0-47.0); Hemoglobin 13.4 g/dL (12.0-15.0); Immature Granulocyte Absolute 0.01 K/mm3 (0.00-0.031); Immature Granulocyte Percent A 0.2 % (0-0.5); Lymphocytes Absolute Auto 1.53 K/mm3 (0.9-3.2); Lymphocytes Percent Auto 35.8 % (18.3-44.2); Mean Corpuscular HGB Conc 33.1 g/dl (32-36); Mean Corpuscular Hemoglobin 34.1 pg (26-34); Mean Corpuscular Volume 103.1 fl (80-100); Mean Platelet Volume 9.2 fl (7.4-10.4); Monocytes Absolute Auto 0.5 K/mm3 (0.1-0.6); Monocytes Percent Auto 11.7 % (2.6-8.5); Neutrophils Absolute Auto 2.2 K/mm3 (1.3-6.7); Neutrophils Percent Auto 51.1 % (45.5-73.1); Platelet Count Result 214 k/mm3 (150-375); Red Blood Count 3.93 M/mm3 (4.2-5.4); Red Cell Distribution Width 11.9 % (11.5-14.5); White Blood Count 4.3 K/mm3 (4.5-10.0)
[2024-08-23 11:30] LABS: Alanine Aminotransferase 37 U/L (6-35); Albumin Level 4.5 g/dL (3.5-5.1); Alkaline Phosphatase 51 U/L (38-126); Anion Gap 12 mmol/L (4-12); Aspartate Amino Transferase 54 U/L (14-36); Bilirubin,Total 0.5 mg/dL (0.2-1.3); Blood Urea Nitrogen 8 mg/dL (7-17); Calcium 9.1 mg/dL (8.4-10.2); Carbon Dioxide 27 mmol/L (22-30); Chloride 100 mmol/L (98-107); Estimated CRCL calculation 123 ml/min; Estimated Glomerular Filt Rate > 60; Glucose 88 mg/dL (65-110); Potassium 4.1 mmol/L (3.4-5.0); Sodium 139 mmol/L (137-145)
[2024-08-23 11:32] LABS: Partial Thromboplastin Time 25.7 Seconds (22.3-36.8)
[2024-08-23 11:36] LABS: Amphetamine Screen Urine Negative (Negative); Barbiturate Screen Urine Negative (Negative); Benzodiazepines Screen Urine Negative (Negative); Cannabinoid Screen Urine Negative (Negative); Cocaine Screen Urine Negative (Negative); Methadone Screen Urine Negative (Negative); Opiate Screen Urine Negative (Negative); Phencyclidine Screen Urine Negative (Negative)
[2024-08-23 11:36] LABS: D Dimer < 0.27 ug/mL (<0.48)
[2024-08-23 11:44] LABS: Troponin I < 0.012 ng/mL (0.000-0.034)
[2024-08-23 11:55] LABS: Add Urine Microscopic? YES; Appearance Urine Clear (Clear); Bacteria Urine Rare /hpf; Bilirubin Urine Negative (Negative); Blood Urine Negative (Negative); Color Urine Yellow (Yellow); Glucose Urine UA Negative (Negative); Ketones Urine Negative (Negative); Leukocyte Esterase Ur 1+ LEU/UL (Negative); Need Manual Microscopic Reviewed; Nitrate Urine Negative (Negative); Non Pathogenic Casts 0-2; Protein Urine Negative (Negative); RBC Urine 0-2 /hpf (0-2); Specific Grav Ur 1.007 (1.001-1.035); Squamous Epithelial Cell Urine None Seen /hpf (Few); Urobilinogen Urine 0.2 mg/dL (<2.0); WBC Urine 0-5 /hpf (0-3)
[2024-08-23] MEDS: NITROFURANTOIN MONOHYD MACROCR 100 MG CAP PO (13:08)
== END 2024-08-23 13:15 | disposition home or self-care (01) ==
PROVIDERS: Emergency Provider Registered Nurse
DX: N39.0 Urinary tract infection, site not specified (principal); R07.89 Other chest pain; J45.909 Unspecified asthma, uncomplicated; K90.0 Celiac disease; M41.9 Scoliosis, unspecified; F17.200 Nicotine dependence, unspecified, uncomplicated; R94.31 Abnormal electrocardiogram [ECG] [EKG]
CPT/HCPCS: 36415; 71046; 80053; 80307; 81001; 84484; 85025; 85380; 85610; 85730; 87086; 93005; 99284; A9270

== ENCOUNTER 2024-12-26 17:05 | Inpatient (IN) | payer OTHER, SELFPAY ==
--- NOTE | ~2024-12-26 | XR_ITS ---
EXAMINATION: XR chest 2V Exam Date/Time: 12/26/2024 17:46 CDT HISTORY: unknown cause syncopal episode Comparison: 08/23/2024. RESULT: Lines, tubes, and devices: None. Lungs and pleura: Clear. Cardiomediastinal silhouette: Stable. Other: No acute osseous or upper abdominal finding. Scoliosis. IMPRESSION: No acute cardiopulmonary process. Reviewed, dictated and finalized at location K.
--- NOTE | ~2024-12-26 | MR_ITS ---
EXAMINATION: MR brain/brain stem wo/w con DATE: 12/27/2024 13:58 INDICATION: Seizure TECHNIQUE: Magnetic resonance imaging (MRI) of the brain and brainstem was performed without and with 14 mL Multihance intravenous contrast. Sequences included sagittal and axial T1-weighted SE, axial d iffusion-weighted FS SE, axial 3D SWAN, axial T2-weighted FLAIR Propeller, axial T2-weighted Propelle r, coronal T2-weighted FLAIR, and coronal T1-weighted 3D FSPGR. Postcontrast axial T1-weighted SE was obtained. Apparent diffusion coefficient (ADC) maps were created. COMPARISON: Head CT dated 12/26/2024 FINDINGS: There are no areas of restricted diffusion to suggest acute infarction. No intracranial hemorrhage or abnormal intracranial mass lesion. There are no intraparenchymal signal abnormalities seen on the ot her pulse sequences. The ventricles are symmetric and normal in size. Bilateral hippocampi appear nor mal and symmetric. No evident sosa matter heterotopias or other neuronal migrational abnormalities. T here are no abnormal extra-axial fluid collections. Flow voids are seen in the cerebral arteries on t he T2-weighted sequences consistent with their expected patency. Mucus retention cyst in the left eth moid sinus. Visualized orbits and soft tissues are unremarkable. There are no areas of abnormal enhan cement on the post contrast images. IMPRESSION: 1. Normal brain with no acute intracranial process, abnormal enhancing lesions or evident etiology fo r reported seizures. Reviewed, dictated and finalized at location A. IMPRESSION: 1. Normal brain with no acute intracranial process, abnormal enhancing lesions or evident etiology for reported seizures.
--- NOTE | ~2024-12-26 | US_ITS ---
EXAMINATION: US carotid duplex BI DATE: 12/27/2024 09:51 INDICATION: Syncope TECHNIQUE: Grayscale, color Doppler, and pulsed Doppler images of the cervical carotid arteries were obtained. The degree of vessel stenosis is placed in one of the following categories: normal, <50%, 5 0-69%, >=70% but less than near-occlusion, near-occlusion, or total occlusion. Note that percent sten osis relative to normal distal artery lumen diameter is indirectly measured from velocity measurement s as described by Grayson, et al. Radiology 2003; 229:340-346. Notes: Normal: Peak systolic velocity <125 centimeters/sec and no plaque <50%. Peak systolic velocity <125 ( EDV <40; ICA/CCA PSV ratio <2.0; used these factors only a tandem lesions or low cardiac output or co ntralateral disease) 50-69 %: PSV 125-230 (EDV 40-100; ratio 2-4) >= 70% but less than near occlusion: PSV greater than 230 (EDV > 100; ratio> 4.0) Near Occlusion: PSV that is variable; markedly narrowed lumen Occlusion: Absent flow on color/spectral Doppler and no lumen on sosa scale. COMPARISON: None. FINDINGS: RIGHT: The right common carotid artery (CCA) peak systolic velocity (PSV) is 70 cm/s. The right internal car otid artery (ICA) PSV is 92 cm/s. The right ICA end-diastolic velocity (EDV) is 35 cm/s. The right IC A/CCA PSV ratio is 1.3. The external carotid artery (ECA) PSV is 96 cm/s. There is antegrade flow in the right vertebral artery. LEFT: The left CCA PSV is 100 cm/s. The left ICA PSV is 92 cm/s. The left ICA EDV is 35 cm/s. The left ICA/ CCA PSV ratio is 0.9. The ECA PSV is 118 cm/s. There is antegrade flow in the left vertebral artery. IMPRESSION: 1. Less than 50% stenosis in the right internal carotid artery by sonographic criteria. 2. Less than 50% stenosis in the left internal carotid artery by sonographic criteria. Reviewed, dictated and finalized at location A. IMPRESSION: 1. Less than 50% stenosis in the right internal carotid artery by sonographic oskar davalos. 2. Less than 50% stenosis in the left internal carotid artery by sonographic clarita mueller.
--- NOTE | ~2024-12-26 | US_ITS ---
EXAMINATION: US abdomen limited DATE: 12/27/2024 09:50 INDICATION: Elevated liver function tests and bilirubin TECHNIQUE: Multiple grayscale and Doppler ultrasound images of the abdomen were obtained. COMPARISON: CT dated 02/27/2019 FINDINGS: The pancreatic head and body are normal in appearance. The pancreatic tail is not visualized. The vi sualized cephalad to mid inferior vena cava and aorta are normal. Liver has normal contour, with a sm ooth surface. There is increased parenchymal echogenicity and coarsened echotexture consistent with d iffuse hepatic steatosis. No liver lesion identified. No intrahepatic biliary duct dilation suspecte d. Portal venous flow was seen in the hepatopetal, normal direction and has normal Doppler waveform. The gallbladder is normal in appearance. There is no cholelithiasis. The common bile duct measures 3 mm, which is normal. . Sonographic Paul sign was reported as negative by the uptwist spinner.Visual is portions of the right kidney demonstrates normal contour and echogenicity with no hydronephrosis. IMPRESSION: 1. Mild diffuse hepatic steatosis. No intra or extrahepatic biliary ductal dilation. Reviewed, dictated and finalized at location A. IMPRESSION: 1. Mild diffuse hepatic steatosis. No intra or extrahepatic biliary ductal dila tion.
--- NOTE | ~2024-12-26 | CT_ITS ---
EXAMINATION: CT brain wo con DATE: 12/26/2024 17:54 INDICATION: syncopal episode, unknown if hit head . TECHNIQUE: Computed tomography (CT) of the head was performed without intravenous contrast. The mA wa s adjusted according to patient size. Iterative reconstruction technique was employed. The dose-lengt h product was 605.33 mGy-cm. COMPARISON: 01/28/2024. FINDINGS: No acute intracranial hemorrhage or extra-axial fluid collection. No hydrocephalus, mass, or herniation. No acute ischemic infarct. Unremarkable dural venous sinus attenuation. No acute osseous abnormality. Small right parietal scalp contusion Small retention cysts/polyps in the ethmoid sinuses, the remaining aerated spaces are clear. IMPRESSION: No acute intracranial process. Reviewed, dictated and finalized at location K.
--- OUTSIDE RECORDS SUMMARY | 2024-12-26 17:08 | XMS_ITS | Continuity of Care Document ---
Author Organization [employer] Address [address] [place] [address] Phone Care Team Providers Care Pilot Fuel Engineer Name Role Phone Davon Valiente MD Unavailable Unavailable Allergies, Adverse Reactions, Alerts Substance Reaction Status Criticality No Known Allergies Active No Inform ation Medications Medication Instructions Dosage Effective Dates (start - stop) Status Comments cefdinir 300 mg capsule take 1 capsule by oral route every 12 hours 300 MG - No Longer Active Procedures Procedure Date OFFICE [id number] RAPID STREP A CULTURE, PRESUMPATIVE, SCREENING ONLY Ap OFFICE [id number] COVID-19, Amplified Probe Technique INFLUENZA, RAPID INFLUENZA B, RAPID - OFFICE LAB OFFICE [id number] COVID-19, Amplified Probe Technique INFLUENZA, RAPID INFLUENZA [...] Date Provider Providers Copied on Encounter OFFICE [id number], [address], [place], [place], [address] , tel:[phone] [place] acute visit (chief complaint) Acute pharyngitisAllergic rhinitis, cause unspecifiedAcute sinusitis, unspecified [address] Rocco Mays[address] [place] [address], [address] [facility], [place], [place], [address], . tel:[phone] Referring Provider: Davon Valiente, [address] [place] [address] [address] [facility], [place], [address] . tel:[phone] [facility], [address], [place], [place], [address] , tel: [phone] [place] acute visit (chief complaint) Influenza-like illnessContact with and (suspected) exposure to covid-19 2 Rocco Mays. [address] [place] [address], [place] [address], [place], [place], [address], . tel:[phone] Referring Provider: Davon Valiente, [address] [place] [address] [address] [facility], [place], [address] . tel:[phone] [facility], [address], [place], [place], [address] , tel: [phone] [place] acute visit (chief complaint) Acute gastroenteritisConta ct with and (suspected) exposure to hgkuu-45Vtvdnhboj-bs ke illness 2 Rocco Mays. [address] [place] [address], [address] [facility], [place], [place], [address], [place]. tel:[phone] Referring Provider: Davon Valiente, [address] [place] [address] [address] [facility], [place], [address] . tel:[phone] [facility], [address], [place], [place], [address] , tel: [phone] [place] Costochondritis, acuteAllergic rhinitis, cause unspecified 8 Rocco Mays. [address] [place] [address], [address] [facility], [place], [place], [address], . tel:[phone] Referring Provider: Davon Valiente, [address] [facility] [address], [place], [address] . tel:[phone] Family History Family Member Type Diagnosis Age [...] viral upper respiratory infection that lasts more hwly02-43 days. -Sinus infections are difficult to treat. [...] bacterial sore throat is Streptococcus . Strep Throat. -Please use acetaminophen or ibuprofen for pain. [...] testing your child for infectious mononucleosis (or [place]). It is a blood test which tests for EBV. It is a virus that causes infectious mono. Patients with EBV can have an enlarged [...] your doctor. -For additional Information please see: http://[email or web address]/contents/pat lnmp-gpkvxnsxbyg-wbes-dijsbb-rj-noqg dren Related to Acute pharyngitis Medication management Signs and symptoms o f infection were discussed with patient. COVID 19 screening protocol utilized.Rapid POLICEWOMAN swab COVID-19 : neg Related to Contact [...] with patient. COVID 19 screening protocol utilized.Rapid POLICEWOMAN swab COVID-19 : neg Related to Contact [...] efforts to keep from dehydration. If your is bottle/breast fed, an oral rehydration solution [...] Mental Status Date Cognitive Assessment Orientation - Crimora ed to time, place, person, situation. Patient Care Teams Name Effective Dates (start - stop) Status Members No Information
--- OUTSIDE RECORDS SUMMARY | 2024-12-26 17:08 | XMS_ITS | Clinical Summary ---
Author Organization [facility] Address [address] [place] [id number] Care Team Providers Care Drop Tester Name Role Phone Zoila Chicas MD Primary Care Provider [phone] Allergies No known active allergies Medications ergocalciferol (VITAMIN D2) 50,000 unit capsule take 1 capsule by oral route every week 0 0 7 Active omega 5-yqr-gen-fish oil (FISH OIL) 1,000 mg (120 mg-180 mg) capsule 0 0 7 Active dextroamphetami ne-amphetamine (ADDERALL) 20 mg tablet take 1 tablet by oral route every day before breakfast 0 0 7 Active Active Problems No known active problems Family History Medical History Relation Name Comments [...] Comments Blood Pressure 116/82 07/06/2022 2:38 PM [employer]GE [employer] Pulse 88 07/06/2022 2:38 PM [employer] Temperature 36.8 C (98.2 F) 07/06/2022 2:38 PM [employer] Respiratory Rate 16 07/06/2022 2:38 PM [employer] Oxygen Saturation 99% 06/13/2024 10: 40 AM BR[employer] albuterol neb with PFT per protocol Inhaled Oxygen Concentration - - Weight 80.7 kg (178 lb) 07/06/2022 2:38 PM [employer] Height 175.3 cm (5' 9) 07/06/2022 2:38 PM BR[employer]GE [employer] Body Mass Index 26.29 07/06/2022 2:38 PM [employer] HEL[employer] Plan of Treatment Health Maintenance Due Date Last Done Comments Cervical Cancer Screening 2000 Depression Screening 2000 Hepatitis C Screening 2000 Pneumococcal vaccine <65 (1 of 1 - PPSV23, PCV20, or PCV21) 2006 11/07/2005, 12/27/2001, 08/30/2001, Additional history exists Regular Well Visit/Exam 18-64 2018 Covid-19 Vaccine (2023-2 5 season) 2024 07/25/2020, 06/26/2020 Influenza Vaccine (#1) 2025 7, 06/07/2013, 04/24/2012, Additional history exists DTaP/Tdap/Td Vaccine (8 - Td or Tdap) 03/20/2031 03/20/2021, 10/12/2011, 11/07/2005, Additional history exists Hepatitis B Screening Completed 12/27/2001 , 08/30/2001, 02/01/2001 Varicella Vaccines Completed 07/14/2008, 08/30/2001 HPV Vaccines Completed 03/07/2013, 06/2012, 08/07/2012 Insurance [employer] [facility] [employer] S[employer]W Care Teams Drop Tester Relationship Specialty Start Date End Date Zoila Chicas MD [address] [place] [address] PCP - General 08/18/16
--- OUTSIDE RECORDS SUMMARY | 2024-12-26 17:08 | XMS_ITS | Clinical Summary ---
Author Organization [facility] Address [address] [place] [address] Care Team Providers Care Top Tile Decorator Name Role Phone Davon Valiente MD Primary Care Provider [phone] Source Comments [facility] [employer]non-owned Affiliates and Associated Physician Practices is amultiple site organization consisting of ambulatory clinics and hospital sitesin [place], [place], [place] and [place]. This disclosure is being madepursuant to the Care Everywhere program and may not contain all information available regarding this patient. Last updated 18.[facility] [employer] Allergies No known active allergies Medications * Be aware that medications may not be up to date on this document. Alwaysverify current medications with the patient. amphetamine-dex troamphetamine XR 24hr (ADDERALL XR) 20 MG capsule Take 15 mg by mouth every morning Active ibuprofen (MOTRIN) 600 MG tablet Take 1 tablet by mouth every 8 hours as needed for Pain 20 tablet 03/01/2017 Active Cetirizine HCl (ZYRTEC PO) Active LAMOTRIGINE PO Activ e Norgestim-Eth Estrad Triphasic (TRINESSA, 28, PO) Active [place]-3 Fatty Acids (FISH OIL) 1000 MG capsule Take 1,000 mg by mouth Active Cholecalciferol (VITAMIN D3) 400 UNITS tablet Take 400 Units by mouth once daily Active melatonin 3 MG tablet Take 9 mg by mouth at bedtime Active Active Problems Problem Noted Date Diagnosed Date Scoliosis (and kyphoscoliosis), idiopathic Overview (02/12/2021): IMO 2020 Family History Medical History Relation Name Comments Cancer Maternal Grandmother Relation Name Status Comments Maternal Grandmother Social History Tobacco Use Types Packs/Day Years Used Date Smoking Tobacco: Never Smokeless Tobacco: Never Alcohol Use Standard Drinks/Week Comments No 0 (1 standard drink = 0.6 oz pur e alcohol) PHQ-2 Answer Date Recorded PHQ2 TOTAL SCORE 0 11/18/2020 Comments No Sex and Gender Information Value Date Recorded Sex Assigned at Not on file Legal Sex Female 9:52 AM CDT Gender Identity Not on file Sexual [...] 4:20 PM CDT Height 175.3 cm (5' 9) 11/18/2020 4:20 PM CDT Body Mass Index 26.58 11/18/2020 4:20 PM CDT Plan of Treatment Health Maintenance Due Date Last Done Comments HIV SCREENING 07/28/2015 HPV VACCINE (1 - 3-dose series) 07/28/2015 CHLAMYDIA/GONORRHEA SCREENING 2016 HEPATITIS C SCREENING 07/23/2018 DTAP/TDAP/TD VACCINES (1 - Tdap) 07/28/2019 HEPATITIS B VACCINE (1 of 3 - 19+ 3-dose series) 07/28/2019 COVID-19 VACCINE (3 - 2023-2 5 season) 2024 07/25/2020, 06/26/2020 DEPRESSION SCREENING 05/15/2024 INFLUENZA VACCINE (#1) 2025 06/07/2013 ZOSTER VACCINE (1 of 2) [...] on patient's age to complete this topic Insurance [facility] MEDICAID - OUT OF STATE Care Teams Top Tile Decorator Relationship Specialty Start Date End Date Davon Valiente MD [address] [phone] PCP - General Allergy and Immunology 06/06/18
--- NOTE | 2024-12-26 17:15 | ECG_ITS ---
Test Date: 2024-12-26 18:13:55 Measurements Intervals [place] Rate: 75 P: -3 TX: 128 QRS: 48 QRSD: 82 T: 35 QT: 465 QTc: 520 Interpretive Statements SINUS RHYTHM BORDERLINE ST-T WAVE ABNORMALITY- ANTERIOR LEADS PROLONGED QT INTERVAL ABNORMAL ECG Compared to ECG 08/23/2024 10:58:15 Prolonged QT interval now present Electronically Signed On 12-26-2024 19:02:27 CDT by Geovany Widsom D.O.
--- NOTE | 2024-12-26 17:16 | ED_ITS ---
HPI - Syncope General Chief Complaint: Seizure <Norma Blackmon Ita, VENIPUNCTURIST - Last Filed: 12/26/24 17:33> Stated Complaint: seizure ? <Norma Blackmon Ita, VENIPUNCTURIST - Last Filed: 12/26/24 17:33> Time Seen by Provider: 12/26/24 17:15 <Norma Blackmon Ita, VENIPUNCTURIST - Last Filed: 12/26/24 17:33> Focused HPI: Patient is a 24-year-old female who presents to the ER with concerns for recent seizure. Her father reports he received a call from patient's place of employment that she had experienced a syncopal episode. Patient's father reports her co-worker said she was ?blinking and then dropped. She denies any headaches, dizziness, or nausea/vomiting. Patient endorses positive loss of consciousness. She denies any history of seizures. Patient reports her only medical history is asthma. She reports she drinks alcohol on a daily basis and her most recent drink was last night. GENERAL: Ill-appearing, well-nourished, and in no acute distress. HEAD: Normocephalic, atraumatic. CHEST: Clear to auscultation. ?No respiratory distress. HEART: Regular rate and rhythm.?+ pallor NEURO: ?Alert and oriented x3. Patient screened in triage and initial orders placed.? ?Additional care and disposition to be based upon?diagnostic testing and treatment. <Norma NascimentoHebert Jean Baptiste, VENIPUNCTURIST - Last Filed: 12/26/24 17:33> Focused HPI: Patient is a 24-year-old female who presents to the ER with concerns for recent seizure. Her father reports he received a call from patient's place of employment that she had experienced a syncopal episode. Patient's father reports her co-worker said she was ?blinking and then dropped. She denies any headaches, dizziness, or nausea/vomiting. Patient endorses positive loss of consciousness. She denies any history of seizures. Patient reports her only medical history is asthma. She reports she drinks small alcohol on a daily basis and her most recent drink was last night. GENERAL: well-appearing, well-nourished, and in no acute distress. HEAD: Normocephalic, atraumatic. CHEST: Clear to auscultation. ?No respiratory distress. HEART: Regular rate and rhythm.?+ pallor NEURO: ?Alert and oriented x3. Patient screened in triage and initial orders placed.? ?Additional care and disposition to be based upon?diagnostic testing and treatment. <Jimbo Chong MD - Last Filed: 12/27/24 06:08> History of Present Illness HPI narrative: Agree with the HPI above in like that collateral formation provided by family who did witness the event. There was a staring off into space episode followed by rapid blinking with variations in her breathing pattern followed by loss of consciousness with fall to the ground with head trauma. Unconscious for approximately 3-5 minutes but was breathing and foaming at the mouth. No generalized shaking activity. Patient regained consciousness and was confused and then fully alert oriented afterwards. She has no symptoms at this time aside from a headache. Denies any chest pain, nausea, vomiting or prodromal symptoms. No history of seizures. No family history of epilepsy but she is adopted. <Jimbo Chong MD - Last Filed: 12/27/24 06:08> Related Data Home Medications: Home Medications ?Medication ?Instructions ?Recorded ?Confirmed ?Last Taken ?Type albuterol sulfate 90 mcg/actuation 2 puff inhalation Q4-6H PRN 12/26/24 12/26/24 Unknown History aerosol inhaler shortness of breath or wheezing <Norma Jean Baptiste APRN - Last Filed: 12/26/24 17:33> Allergies/Adverse Reactions: Allergies Allergy/AdvReac Type Severity Reaction Status Date / Time gluten Allergy Gastrointestinal Verified 01/28/24 18:37 Upset <Norma Jean Baptiste APRN - Last Filed: 12/26/24 17:33> Review of Systems 2 Review of Systems: As reviewed above in HPI <Jimbo Chong MD - Last Filed: 12/27/24 06:08> PMFSH Past Medical History Medical History: Medical History Bipolar affect, depressed ADHD <Norma Jean Baptiste APRN - Last Filed: 12/26/24 17:33> Surgical History Surgical History: Surgical History History of surgical procedure on mouth <Norma Jean Baptiste APRN - Last Filed: 12/26/24 17:33> Family History Family History: Family History (Updated 12/26/24 @ 23:37 by Salina Deluna RN) Other Unknown family medical history <Norma Jean Baptiste APRN - Last Filed: 12/26/24 17:33> Social History Social History: Social History Smoking status: Current every day smoker Tobacco type: e-cigarettes/vaping Alcohol intake: current Drinks per week: 7 Substance use: current Substance use type: marijuana Last use: 12/19/24 Lack of Transportation: No Lack of Food: Never True Current Housing: I Have Housing Concerned About Future Housing: No Difficulty Paying Gas/Electric Bills: No Difficulty Paying for Meds: No Currently Unemployed: No Education: High School Diploma/GED Difficulty w/ Childcare or Family Care: No Spiritual care concerns: No <Norma Jean Baptiste APRN - Last Filed: 12/26/24 17:33> Exam 2 Narrative: GENERAL: [Well-appearing, well-nourished, and in no acute distress.] HEAD: [Normocephalic, atraumatic.] EYES: [PERRLA and EOMI.] ENT: Nares clear, no rhinorrhea or epistaxis. Mucous membranes moist. NECK: Supple. CHEST: [Clear to auscultation. No respiratory distress.] HEART: [Regular rate and rhythm]. No murmur heard. [Normal peripheral pulses.] ABDOMEN: [Soft, nondistended], [nontender], [No rigidity or guarding] EXTREMITIES: Normal range of motion. [No edema.] SKIN: Warm, dry, no rash. NEURO: [No focal deficits]. Alert and oriented [x3.] PSYCH: [Normal mood and affect.] <Jimbo Chong MD - Last Filed: 12/27/24 06:08> Course Vital Signs Vital signs: Vital Signs Temperature 37.0 C 12/26/24 17:32 Pulse Rate 92 12/26/24 17:32 Respiratory Rate 18 12/26/24 17:32 Blood Pressure 138/90 12/26/24 17:32 Pulse Oximetry 100 12/26/24 17:32 Oxygen Delivery Room Air 12/26/24 17:32 Temperature 36.2 C L 12/26/24 23:23 Pulse Rate 79 12/27/24 04:00 Respiratory Rate 18 12/26/24 23:23 Blood Pressure 131/82 12/26/24 23:23 Pulse Oximetry 98 12/26/24 23:23 Oxygen Delivery Room Air 12/26/24 23:23 <Norma Jean Baptiste, VENIPUNCTURIST - Last Filed: 12/26/24 17:33> Vital Signs Temperature 37.0 C 12/26/24 17:32 Pulse Rate 92 12/26/24 17:32 Respiratory Rate 18 12/26/24 17:32 Blood Pressure 138/90 12/26/24 17:32 Pulse Oximetry 100 12/26/24 17:32 Oxygen Delivery Room Air 12/26/24 17:32 Temperature 36.2 C L 12/26/24 23:23 Pulse Rate 79 12/27/24 04:00 Respiratory Rate 18 12/26/24 23:23 Blood Pressure 131/82 12/26/24 23:23 Pulse Oximetry 98 12/26/24 23:23 Oxygen Delivery Room Air 12/26/24 23:23 <Jimbo Chong MD - Last Filed: 12/27/24 06:08> MDM - Syncope MDM Narrative Medical decision making narrative: 24-year-old otherwise healthy female presenting for potential seizure versus syncopal episode at home. She states that was witnessed by family members and they are present for collateral formation. She felt some brain fog before the onset of her symptoms and then family noted that she was staring off the space blinking and breathing rapidly for several moments before she lost consciousness and fell to the ground with head trauma. She was unconscious for several minutes but breathing and had some foaming at the mouth with irregular breathing patterns but did not have any generalized shaking activity or classic tonic clonic activity. Patient regained consciousness slowly and currently is awake alert oriented. She has some minor henderson from the head trauma with some abrasions to the right side of her face and had but no significant bleeding or hematoma formation. Hemodynamically stable without any tachycardia, fever, hypoxia, blood pressure is normal. Neurological assessment is normal cardiovascular assessment is normal. Given patient's concerning historical features potential for first-time seizure versus syncopal episode versus vasovagal event. She has no cardiac risk factors or seizure risk factors. Family does provide additional information states that she has been having poor nutrition lately and not eating for last 24 hours secondary to some gluten issues. Etiology pt patient's event is likely multifactorial but investigations including CBC, CMP, troponin, EKG, chest x-ray and CT of the head obtained. I discussed patient's case with the on-call neurologist Dr. Glasgow who recommended admission for MRI with and without contrast as well as an EEG given concern for potential first-time seizure activity based on the description of the events although other etiology still not excluded. Recommended no initiation of antiepileptic medications for first-time event at this time. Patient's remaining workup shows slightly low potassium and a slightly prolonged QTC interval on EKG. Unclear if she had a cardiovascular syncopal event although less likely given her age and lack of risk factors. She is given IV potassium and magnesium as well as fluids. Troponin negative, UDS negative, urinalysis negative. Mildly elevated LFTs but no signs of abdominal distress or discomfort. Soft nontender nondistended abdomen. Magnesium level slightly low at 1.6 with hemolysis. TSH normal. Awaiting discussion with hospitalist for admission to a telemetry monitored bed. Patient has been in the emergency department for several hours without any recurrence for syncope versus seizure activity. Discussed with Dr. Hoff who is comfortable with patient going to the IMU for continued monitoring. Patient and family updated on plan admitted at this time. <Jimbo Chong MD - Last Filed: 12/27/24 06:08> Medical Records Attestation: I reviewed the patient's medical records. <Jimbo Chong MD - Last Filed: 12/27/24 06:08> Lab Data Attestation: I reviewed the patient's lab results. <Jimbo Chong MD - Last Filed: 12/27/24 06:08> Result diagrams: 12/26/24 18:22 12/26/24 18:22 <Norma Jean Baptiste APRN - Last Filed: 12/26/24 17:33> Labs: Lab Results 12/26/24 12/26/24 12/26/24 Range/Units 18:22 18:22 18:23 WBC 7.5 (4.5-10.0) K/mm3 RBC 3.77 L (4.2-5.4) M/mm3 Hgb 13.1 (12.0-15.0) g/dL Hct 38.3 (37.0-47.0) % MCV 101.6 H (80-100) fl MCH 34.7 H (26-34) pg MCHC 34.2 (32-36) g/dl RDW 12.7 (11.5-14.5) % Plt Count 170 (150-375) k/mm3 MPV 9.2 (7.4-10.4) fl Immature Gran % (Auto) 0.3 (0-0.5) % Neut % (Auto) 78.0 H (45.5-73.1) % Lymph % (Auto) 13.1 L (18.3-44.2) % [place] % (Auto) 8.0 (2.6-8.5) % Eos % (Auto) 0.1 (0-4.4) % Baso % (Auto) 0.5 (0.2-1.2) % Lymph # (Auto) 0.98 (0.9-3.2) K/mm3 [place] # (Auto) 0.6 (0.1-0.6) K/mm3 Eos # (Auto) 0.0 (0-0.3) K/mm3 Baso # (Auto) 0.0 (0.0-0.1) K/mm3 Abs Immat Gran (auto) 0.02 (0.00-0.031) K/mm3 Absolute Neuts (auto) 5.9 (1.3-6.7) K/mm3 Absolute Nucleated RBC 0.000 (0.0-0.012) K/mm3 Nucleated RBC % 0.0 (0.0-0.2) % Sodium 132 L (137-145) mmol/L Potassium 3.3 L (3.4-5.0) mmol/L Chloride 96 L (98-107) mmol/L Carbon Dioxide 25 (22-30) mmol/L Anion Gap 11 (4-12) mmol/L BUN 4 L (7-17) mg/dL Creatinine 0.81 (0.7-1.0) mg/dL Estim Creat Clear Calc 98 ml/min Estimated GFR > 60 (59 - ) Glucose 105 (65-110) mg/dL Calcium 9.8 (8.4-10.2) mg/dL Magnesium 1.6 1.6 (1.6-2.3) mg/dL Total Bilirubin 2.5 H (0.2-1.3) mg/dL AST 101 H (14-36) U/L ALT 40 H (6-35) U/L Alkaline Phosphatase 62 (38-126) U/L Total Protein 8.2 (6.3-8.2) g/dL Albumin 4.8 (3.5-5.1) g/dL TSH (Reflex) 1.540 (0.465-4.68) uIU/mL Urine Color Dark yellow (Yellow) Urine Appearance Clear (Clear) Urine pH 6.0 (5.0-9.0) Ur Specific [place] 1.013 (1.001-1.035) Urine Protein 1+ H (Negative) mg/dL Urine Glucose (UA) Negative (Negative) mg/dL Urine Ketones 1+ H (Negative) mg/dL Ur Blood (Man) Negative (Negative) Urine Nitrate Negative (Negative) Urine Bilirubin Negative (Negative) Urine Urobilinogen 1.0 (<2.0) mg/dL Add Ur Microanalysis Reviewed Leukocyte Esterase Rfl Trace H (Negative) KIAH/UL Urine RBC 0-2 (0-2) /hpf Urine WBC 0-5 (0-3) /hpf Ur Squamous Epith Cells None seen (Few) /hpf Urine Bacteria None seen /hpf Urine Casts 11-20 Urine Opiates Screen Negative (Negative) Urine Methadone Screen Negative (Negative) Ur Barbiturates Screen Negative (Negative) Ur Phencyclidine Scrn Negative (Negative) Ur Amphetamine Screen Negative (Negative) U Benzodiazepines Scrn Negative (Negative) Urine Cocaine Screen Negative (Negative) U Cannabinoids Screen Negative (Negative) Ethyl Alcohol < 10 (<10) mg/dL <Norma Jean Baptiste, VENIPUNCTURIST - Last Filed: 12/26/24 17:33> Lab Results 12/26/24 12/26/24 12/26/24 Range/Units 18:22 18:22 18:23 WBC 7.5 (4.5-10.0) K/mm3 RBC 3.77 L (4.2-5.4) M/mm3 Hgb 13.1 (12.0-15.0) g/dL Hct 38.3 (37.0-47.0) % MCV 101.6 H (80-100) fl MCH 34.7 H (26-34) pg MCHC 34.2 (32-36) g/dl RDW 12.7 (11.5-14.5) % Plt Count 170 (150-375) k/mm3 MPV 9.2 (7.4-10.4) fl Immature Gran % (Auto) 0.3 (0-0.5) % Neut % (Auto) 78.0 H (45.5-73.1) % Lymph % (Auto) 13.1 L (18.3-44.2) % [place] % (Auto) 8.0 (2.6-8.5) % Eos % (Auto) 0.1 (0-4.4) % Baso % (Auto) 0.5 (0.2-1.2) % Lymph # (Auto) 0.98 (0.9-3.2) K/mm3 [place] # (Auto) 0.6 (0.1-0.6) K/mm3 Eos # (Auto) 0.0 (0-0.3) K/mm3 Baso # (Auto) 0.0 (0.0-0.1) K/mm3 Abs Immat Gran (auto) 0.02 (0.00-0.031) K/mm3 Absolute Neuts (auto) 5.9 (1.3-6.7) K/mm3 Absolute Nucleated RBC 0.000 (0.0-0.012) K/mm3 Nucleated RBC % 0.0 (0.0-0.2) % Sodium 132 L (137-145) mmol/L Potassium 3.3 L (3.4-5.0) mmol/L Chloride 96 L (98-107) mmol/L Carbon Dioxide 25 (22-30) mmol/L Anion Gap 11 (4-12) mmol/L BUN 4 L (7-17) mg/dL Creatinine 0.81 (0.7-1.0) mg/dL Estim Creat Clear Calc 98 ml/min Estimated GFR > 60 (59 - ) Glucose 105 (65-110) mg/dL Calcium 9.8 (8.4-10.2) mg/dL Magnesium 1.6 1.6 (1.6-2.3) mg/dL Total Bilirubin 2.5 H (0.2-1.3) mg/dL AST 101 H (14-36) U/L ALT 40 H (6-35) U/L Alkaline Phosphatase 62 (38-126) U/L Total Protein 8.2 (6.3-8.2) g/dL Albumin 4.8 (3.5-5.1) g/dL TSH (Reflex) 1.540 (0.465-4.68) uIU/mL Urine Color Dark yellow (Yellow) Urine Appearance Clear (Clear) Urine pH 6.0 (5.0-9.0) Ur Specific [place] 1.013 (1.001-1.035) Urine Protein 1+ H (Negative) mg/dL Urine Glucose (UA) Negative (Negative) mg/dL Urine Ketones 1+ H (Negative) mg/dL Ur Blood (Man) Negative (Negative) Urine Nitrate Negative (Negative) Urine Bilirubin Negative (Negative) Urine Urobilinogen 1.0 (<2.0) mg/dL Add Ur Microanalysis Reviewed Leukocyte Esterase Rfl Trace H (Negative) KIAH/UL Urine RBC 0-2 (0-2) /hpf Urine WBC 0-5 (0-3) /hpf Ur Squamous Epith Cells None seen (Few) /hpf Urine Bacteria None seen /hpf Urine Casts 11-20 Urine Opiates Screen Negative (Negative) Urine Methadone Screen Negative (Negative) Ur Barbiturates Screen Negative (Negative) Ur Phencyclidine Scrn Negative (Negative) Ur Amphetamine Screen Negative (Negative) U Benzodiazepines Scrn Negative (Negative) Urine Cocaine Screen Negative (Negative) U Cannabinoids Screen Negative (Negative) Ethyl Alcohol < 10 (<10) mg/dL <Jimbo Chong MD - Last Filed: 12/27/24 06:08> Imaging Data Attestation: I personally reviewed and interpreted this imaging study as follows: < Jimbo Chong MD - Last Filed: 12/27/24 06:08> My impression: Impressions Head CT 12/26/24 18:06 IMPRESSION: No acute intracranial process. Chest X-Ray 12/26/24 18:10 IMPRESSION: No acute cardiopulmonary process. <Jimbo Chong MD - Last Filed: 12/27/24 06:08> Discharge Plan Discharge Clinical Impression: Witnessed seizure-like activity, Prolonged QT interval <Norma Jean Baptiste APRN - Last Filed: 12/26/24 17:33> Patient Disposition: Still a Patient <Norma Jean Baptiste APRN - Last Filed: 12/26/24 17:33> Condition: Stable <Norma Jean Baptiste APRN - Last Filed: 12/26/24 17:33>
[2024-12-26 17:32] VITALS: BP 138/90; PULSE 92; RESP 18; TEMP 37; O2SAT 100
[2024-12-26 18:29] LABS: Hematocrit 38.3 % (37.0-47.0); Hemoglobin 13.1 g/dL (12.0-15.0); Immature Granulocyte Percent A 0.3 % (0-0.5); Lymphocytes Absolute Auto 0.98 K/mm3 (0.9-3.2); Mean Corpuscular HGB Conc 34.2 g/dl (32-36); Mean Corpuscular Hemoglobin 34.7 pg (26-34); Mean Corpuscular Volume 101.6 fl (80-100); Nucleated Red Blood Cells Absolute Auto 0.000 K/mm3 (0.0-0.012); Nucleated Red Blood Cells Perc 0.0 % (0.0-0.2); Platelet Count Result 170 k/mm3 (150-375); Red Blood Count 3.77 M/mm3 (4.2-5.4); White Blood Count 7.5 K/mm3 (4.5-10.0)
[2024-12-26 18:43] LABS: Alanine Aminotransferase 40 U/L (6-35); Albumin Level 4.8 g/dL (3.5-5.1); Alkaline Phosphatase 62 U/L (38-126); Anion Gap 11 mmol/L (4-12); Aspartate Amino Transferase 101 U/L (14-36); Bilirubin,Total 2.5 mg/dL (0.2-1.3); Blood Urea Nitrogen 4 mg/dL (7-17); Calcium 9.8 mg/dL (8.4-10.2); Carbon Dioxide 25 mmol/L (22-30); Chloride 96 mmol/L (98-107); Estimated CRCL calculation 98 ml/min; Estimated Glomerular Filt Rate > 60; Glucose 105 mg/dL (65-110); Magnesium 1.6 mg/dL (1.6-2.3); Potassium 3.3 mmol/L (3.4-5.0); Sodium 132 mmol/L (137-145); Total Protein 8.2 g/dL (6.3-8.2)
[2024-12-26 19:23] LABS: Thyroid Stimulating Hormone Reflex 1.540 uIU/mL (0.465-4.68)
[2024-12-26 19:24] LABS: Add Urine Microscopic? YES; Appearance Urine Clear (Clear); Glucose Urine UA Negative (Negative); Leukocyte Esterase Ur Trace LEU/UL (Negative); Need Manual Microscopic Reviewed; Nitrate Urine Negative (Negative); Specific Grav Ur 1.013 (1.001-1.035)
[2024-12-26 19:29] LABS: Cannabinoid Screen Urine Negative (Negative)
[2024-12-26 19:36] VITALS: BP 125/79; PULSE 85; RESP 20; O2SAT 100
--- OUTSIDE RECORDS SUMMARY | 2024-12-26 21:12 | XMS_ITS | Clinical Summary ---
Author Organization [facility] Address [address] [place] [address] Care Team Providers Care Sander Setter Name Role Phone Davon Valiente MD Primary Care Provider [phone] Source Comments [facility] [employer]non-owned Affiliates and Associated Physician Practices is amultiple site organization consisting of ambulatory clinics and hospital sitesin [place], [place], [place] and [place]. This disclosure is being madepursuant to the Care Everywhere program and may not contain all information available regarding this patient. Last updated 18.[facility] [employer] Allergies No known active allergies Medications * [...] Norgestim-Eth Estrad Triphasic (TRINESSA, 28, PO) Active [place]-3 Fatty Acids (FISH OIL) 1000 MG capsule [...] patient's age to complete this topic Insurance [facility] MEDICAID - OUT OF STATE Care Teams Sander Setter Relationship Specialty Start Date End Date Davon Valiente MD [address] [phone] PCP - General Allergy and Immunology 06/06/18
--- OUTSIDE RECORDS SUMMARY | 2024-12-26 21:12 | XMS_ITS | Continuity of Care Document ---
Author Organization [employer] Address [address] [place] [address] Phone Care Team Providers Care Director Of Rehabilitative Services Name Role Phone Davon Valiente MD Unavailable Unavailable Allergies, Adverse Reactions, Alerts Substance Reaction Status Criticality No Known Allergies Active No Inform ation Medications Medication Instructions Dosage Effective Dates (start - stop) Status Comments cefdinir 300 mg capsule take 1 capsule by oral route every 12 hours 300 MG - No Longer Active Procedures Procedure Date OFFICE [id number] RAPID STREP A CULTURE, PRESUMPATIVE, SCREENING ONLY Ap OFFICE [id number] COVID-19, Amplified Probe Technique INFLUENZA, RAPID INFLUENZA B, RAPID - OFFICE LAB OFFICE [id number] COVID-19, Amplified Probe Technique INFLUENZA, RAPID INFLUENZA [...] Date Provider Providers Copied on Encounter OFFICE [id number] [facility], [address], [place], [place], [id number] , tel:[phone] [place] acute visit (chief complaint) Acute pharyngitisAllergic rhinitis, cause unspecifiedAcute sinusitis, unspecified 3 Rocco Mays. [address] [place] [address], [address] [facility], [place], [place], [id number], . tel:[phone] Referring Provider: Davon Valiente, [address] [place] [address] [address] [facility], [place], [address] . tel:[phone] [facility], [address], [place], [place], [id number] , tel: [phone] [place] acute visit (chief complaint) Influenza-like illnessContact with and (suspected) exposure to covid-19 2 Rocco Mays. [address] [place] [address], [place] [address], [place], [place], [id number], . tel:[phone] Referring Provider: Davon Valiente, [address] [place] [address] [address] [facility], [place], [address] . tel:[phone] [facility], [address], [place], [place], [id number] , tel: [phone] [place] acute visit (chief complaint) Acute gastroenteritisConta ct with and (suspected) exposure to gsnrx-43Fnkhflubg-ua ke illness 2 Rocco Mays. [address] [place] [address], [address] [facility], [place], [place], [id number], [place]. tel:[phone] Referring Provider: Davon Valiente, [address] [place] [address] [address] [facility], [place], [address] . tel:[phone] [facility], [address], [place], [place], [id number] , tel: [phone] [place] Costochondritis, acuteAllergic rhinitis, cause unspecified 8 Rocco Mays. [address] [place] [address], [address] [facility], [place], [place], [id number], . tel:[phone] Referring Provider: Davon Valiente, [address] [facility] [address], [place], [address] . tel:[phone] Family History Family Member Type Diagnosis Age [...] viral upper respiratory infection that lasts more [id number] days. -Sinus infections are difficult to treat. [...] testing your child for infectious mononucleosis (or Pine). It is a blood test which tests [...] your doctor. -For additional Information please see: [email or web address] Related to Acute pharyngitis Medication management Signs and symptoms o f infection were discussed with patient. COVID 19 screening protocol utilized.Rapid RESEARCH AFFILIATE swab COVID-19 : neg Related to Contact [...] with patient. COVID 19 screening protocol utilized.Rapid RESEARCH AFFILIATE swab COVID-19 : neg Related to Contact [...] Mental Status Date Cognitive Assessment Orientation - [place] ed to time, place, person, situation. Patient Care Teams Name Effective Dates (start - stop) Status Members No Information
--- OUTSIDE RECORDS SUMMARY | 2024-12-26 21:12 | XMS_ITS | Clinical Summary ---
Author Organization [facility] Address [address] [place] [address] Care Team Providers Care Paint Line Operator Name Role Phone Zoila Chicas MD Primary Care Provider [phone] Allergies No known active allergies Medications ergocalciferol (VITAMIN D2) 50,000 unit capsule take 1 capsule by oral route every week 0 0 7 Active omega 8-hlk-crp-fish oil (FISH OIL) 1,000 mg (120 mg-180 [...] Comments Blood Pressure 116/82 07/06/2022 2:38 PM RESPIRATORY CARE TECHNICIAN Pulse 88 07/06/2022 2:38 PM RESPIRATORY CARE TECHNICIAN Temperature 36.8 C (98.2 F) 07/06/2022 2:38 PM RESPIRATORY CARE TECHNICIAN Respiratory Rate 16 07/06/2022 2:38 PM RESPIRATORY CARE TECHNICIAN Oxygen Saturation 99% 06/13/2024 10: 40 AM RESPIRATORY CARE TECHNICIAN albuterol neb with PFT per protocol Inhaled Oxygen Concentration - - Weight 80.7 kg (178 lb) 07/06/2022 2:38 PM RESPIRATORY CARE TECHNICIAN Height 175.3 cm (5' 9) 07/06/2022 2:38 PM RESPIRATORY CARE TECHNICIAN Body Mass Index 26.29 07/06/2022 2:38 PM RESPIRATORY CARE TECHNICIAN Plan of Treatment Health Maintenance Due Date [...] Completed 03/07/2013, 06/2012, 08/07/2012 Insurance [employer] IBEW [facility] AETNA SIGNATURE [employer] IBEW Care Teams Paint Line Operator Relationship Specialty Start Date End Date Zoila Chicas MD [address] [place] [address] PCP - General 08/18/16
[2024-12-26] MEDS: SODIUM CHLORIDE 0.9% IV 1,000 ML 999 ML IV CONT (21:32)
[2024-12-26] MEDS: POTASSIUM CHLORIDE 20 MEQ PACKET (FOR LIQUID) PO (21:33)
[2024-12-26] MEDS: MAGNESIUM SULF 2 GM/WATER 50ML 2 GM/50 ML BAG IVPB (21:37)
[2024-12-26 21:55] LABS: Magnesium 1.6 mg/dL (1.6-2.3)
[2024-12-26 22:00] VITALS: PULSE 105
[2024-12-26] MEDS: KCL 20 MEQ/SW 100 ML 100 ML 50 MEQ IVPB (22:00)
[2024-12-26 23:23] VITALS: BP 131/82; PULSE 85; RESP 18; TEMP 36.2; O2SAT 98; BMI 23.3
--- NOTE | 2024-12-26 23:30 | ADMGEN ---
This patient, Nathalie Lara, was admitted to Medical Room 244-. Patient/family oriented to hospital policies and general routines including ID bracelet, bed and alarms, visiting hours, pain management, procedures, bathroom and other care routines, personal items, smoking policy, room service/diet, and visiting hours. Information on how to activate the Rapid Response Team has been discussed. Patient/Family are encouraged to report perceived risks to care and to ask questions if they do not understand what they are told or what they should do.
[2024-12-26] MEDS: ACETAMINOPHEN 325 MG TABLET 650 MG PO (23:57)
[2024-12-27] VITALS (15 sets, daily range): BP systolic 81–134; BP diastolic 64–100; PULSE 60–108; RESP 17–26; TEMP 36.3–36.9; O2SAT 96–100
--- NOTE | 2024-12-27 | ECHO_ITS ---
Patient Info Name: Nathalie Valverde Page Age: 24 years : 2000 Gender: Female Ht: 69 in Wt: 157 lbs BSA: 1.87 m2 HR: 63 bpm BP: 112 / 90 mmHg Heart Rhythm: Sinus Rhythm Technical Quality: Good Exam Date: 12/27/2024 10:09 AM Patient Status: I Admit Date: 12/26/2024 Exam Type: CA echo doppler color flow Complete two-dimensional, color flow and Doppler transthoracic echocardiogram is performed. Staff Referring Physician: Jimbo Chong Personal Lines Account Manager: Radha Logan Attending Provider: Navya Hoff DO Summary 1. Complete two-dimensional, color flow and Doppler transthoracic echocardiogram is performed. 2. Left ventricular chamber dimension is normal. 3. Left ventricular systolic function is normal, estimated at 65-70. 4. There is no increased left ventricular wall thickness. 5. The left ventricular diastolic function is normal. 6. There is mild tricuspid valve regurgitation. Left Ventricle Left ventricular chamber dimension is normal. Left ventricular systolic function is normal, estimated at 65-70. There is no increased left ventricular wall thickness. The left ventricular diastolic function is normal. Right Ventricle Right ventricular chamber dimension is normal. Right ventricular systolic function is normal. Left Atria Left atrial chamber dimension is normal. Right Atria Right atrial chamber dimension is normal. Atrial Septum Intact interatrial septum visualized by color flow imaging. Aortic Valve The aortic valve is trileaflet. There is no aortic valve sclerosis. There is no aortic valve stenosis. There is trace aortic valve regurgitation. Pulmonic Valve The pulmonic valve is normal. There is no pulmonic valve stenosis. There is trace pulmonic regurgitation. Mitral Valve The mitral valve has normal leaflets. There is no mitral valve stenosis. There is trace mitral valve regurgitation. Tricuspid Valve The tricuspid valve leaflets are normal. There is no significant tricuspid valve stenosis. There is mild tricuspid valve regurgitation. No pulmonary hypertension, estimated pulmonary arterial systolic pressure is 26 mmHg. Pericardium/Pleural The pericardium appears normal. There is no pericardial effusion. Inferior Vena Cava Normal inferior vena cava with >50% collapse upon inspiration consistent with normal right atrial pressure, 10 mmHg. Aorta The aortic root size at the sinus of Valsalva is normal. Left Ventricular Outflow Tract Name Value Normal LVOT 2D LVOT Diameter 1.8 cm LVOT Doppler LVOT Peak Velocity 120 cm/s LVOT Peak Gradient 6 mmHg LVOT Mean Gradient 3 mmHg LVOT VTI 26 cm LVOT VTI/AV VTI Ratio 0.8 LVOT Stroke Volume 67 ml LVOT CO 13.0 l/min LVOT CI 7.0 l/min/m2 Pulmonic Valve Name Value Normal PV Doppler PV Peak Velocity 90 cm/s PV Peak Gradient 3 mmHg Mitral Valve Name Value Normal MV Diastolic Function MV E Peak Velocity 100 cm/s MV A Peak Velocity 42 cm/s MV E/A 2.4 MV Decel Time (PW) 292 ms MV Annular TDI MV E/e' (Septal) 7.2 MV E/e' (Lateral) 5.8 MV E/e' (Average) 6.5 Tricuspid Valve Name Value Normal TV Regurgitation Doppler TR Peak Velocity 202 cm/s TR Peak Gradient 16 mmHg Estimated PAP/RSVP RA Pressure 10 mmHg <=5 PA Systolic Pressure 26 mmHg <36 RV Systolic Pressure 26 mmHg <36 TV Annular TDI TV Lateral Cadence s' Velocity 12.4 cm/s >=9.5 Aorta Name Value Normal Ascending Aorta Ao Root Diameter (MM) 3.0 cm Ao Root Diam Index (MM) 1.6 cm/m2 Aortic Valve Name Value Normal AV Doppler AV Peak Velocity 150 cm/s AV Peak Gradient 9 mmHg AV Mean Gradient 5 mmHg AV VTI 32 cm AV Area (Cont Eq VTI) 2.1 cm2 >=3.0 AV Area (Cont Eq Franco) 2.0 cm2 AV DI (Franco) 0.80 AV Regurgitation 2D LVOT Area 2.5 cm2 Ventricles Name Value Normal LV Dimensions 2D/MM LVOT Diameter 1.8 cm LV Fractional Shortening/Ejection Fraction 2D/MM LV Diastolic Volume (4C MOD) 91 ml LV EF (4C MOD) 65 % LV Diastolic Volume (2C MOD) 106 ml LV EF (2C MOD) 70 % LV Diastolic Volume (BP MOD) 103 ml 46-106 LV Diastolic Volume Index (BP MOD) 55 ml/m2 29-61 LV Systolic Volume (BP MOD) 35 ml 14-42 LV Systolic Volume Index (BP MOD) 19 ml/m2 8-24 LV EF (BP MOD) 66 % 54-74 LV Diastolic Length (4C) 8.6 cm LV Systolic Length (4C) 6.3 cm LV Stroke Volume (4C MOD) 59 ml Atria Name Value Normal LA Dimensions LA Dimension (MM) 3.4 cm 2.7-3.8 LA Volume (4C A-L) 52 ml LA Volume (BP A-L) 52 ml RA Dimensions RA Systolic Major [place] Length (4C) 5.0 cm 2.2-2.8 RA Area (4C) 14.3 cm2 <=18.0 Report Signatures
--- NOTE | 2024-12-27 05:37 | ECG_ITS ---
Test Date: 2024-12-27 05:51:34 Measurements Intervals [place] Rate: 60 P: 3 NM: 124 QRS: 59 QRSD: 93 T: 47 QT: 595 QTc: 597 Interpretive Statements SINUS RHYTHM ST ELEVATION IN ANTEROLAT/HIGH LAT LEADS- PROBABLY EARLY REPOLARIZATION ABNORMALITY PROLONGED QT INTERVAL ABNORMAL ECG Compared to ECG 12/26/2024 18:13:55 No significant changes Electronically Signed On 12-27-2024 06:35:21 CDT by Geovany Wisdom D.O.
--- NOTE | 2024-12-27 05:42 | PC.NURSE ---
(7171) 25 beat V-tach w/ Torsad appearance. Pt endorses feeling similar symptoms to when she lost consciousness. Vitals WNL immediately after converting back to baseline rhythm. Dr. Hoff notified, orders received and Cardiology consult ordered.
[2024-12-27 06:49] LABS: Alanine Aminotransferase 35 U/L (6-35); Albumin Level 4.4 g/dL (3.5-5.1); Alkaline Phosphatase 54 U/L (38-126); Anion Gap 8 mmol/L (4-12); Aspartate Amino Transferase 105 U/L (14-36); Bilirubin,Total 2.9 mg/dL (0.2-1.3); Blood Urea Nitrogen 3 mg/dL (7-17); Calcium 9.2 mg/dL (8.4-10.2); Carbon Dioxide 24 mmol/L (22-30); Chloride 102 mmol/L (98-107); Estimated CRCL calculation 115 ml/min; Estimated Glomerular Filt Rate > 60; Glucose 92 mg/dL (65-110); Magnesium 2.2 mg/dL (1.6-2.3); Potassium 3.6 mmol/L (3.4-5.0); Sodium 134 mmol/L (137-145); Total Protein 7.5 g/dL (6.3-8.2)
--- NOTE | 2024-12-27 06:57 | PC.NURSE ---
Pt transferred from 2MED 244 to ICU3. Pt transferred with all belongings. veterinary microbiologist Nathalie assuming care of patient, bedside report refused. Receiving RN directed transferring RN to return at a later time to give day shift RN report.
[2024-12-27 07:05] LABS: Troponin I < 0.012 ng/mL (0.000-0.034)
[2024-12-27 07:49] LABS: Vitamin B12 787.0 pg/mL (239-931)
--- NOTE | 2024-12-27 08:29 | P.HP_ITS ---
H&P: HPI History of Present Illness Date/Time: 12/27/24 08:29 Chief Complaint: Syncope/seizures Narrative: Patient is a 24-year-old female with a past medical history of celiac disease and scoliosis presented to the ER due to the potential seizures versus syncopal episode. As per record patient was witnessed by family member noted that she was staring off the space blinking and breathing rapidly for several moments before she lost consciousness and fell to the ground with head trauma. She was unconscious for several minutes but breathing and had some foaming at the mouth with irregular breathing patterns but did not have any generalized shaking activity or classic tonic clonic activity. Patient regained consciousness slowly and currently is awake alert oriented. She has some minor henderson from the head trauma with some abrasions to the right side of her face and had but no significant bleeding or hematoma formation. Pertinent ED labs: WBC 7.5, hemoglobin 13.1, hematocrit 38.3, platelet 170, s odium 134, potassium 3.6, creatinine 0.6, GFR greater than 60 EKG shows QTC [address] no acute intracranial process Patient is admitted in the setting syncope and seizure workup. was c onsulted from the ED and recommended admission for MRI with and without contrast as well as an EEG given concern for potential first-time seizure activity based on the description of the events although other etiology still not excluded. Recommended no initiation of antiepileptic medications for first-time event at this time. Consulted Cardiology for possible syncope, and prolong QTC. Ordered ECHO, EEG, Brain MRI and Carotid Doppler. In the event of nausea or vomiting recommend aprepitant. Avoid QTC prolongation agent including Zofran. Patient just finished her MRI brain, was sitting in the wheelchair, rolled her and went unresponsive, according the bedside nurse she lost a pulse, initially a rapid response was called which converted to in a code blue. Upon intersivist arrival, ER physician was already present and started running the code. CPR was in process, patient was receiving bag-mask ventilation, patient was given magnesium, epinephrine per ACLS protocol. She did developed rapid torsades in be in ventricular fibrillation for which she was defibrillated with 200 joules x1, CPR was restarted, patient did have a good rhythm on the monitor, on pulse check she had a bounding pulse and was in sinus tachycardia. Patient woke up, was breathing , brought her to the ICU which she was more awake and answering questions appropriately. Patient was worked up to the monitors, currently in sinus rhythm with rates in the 80s and 90s, adequate blood pressures, good O2 sats on room air. As per review scheduling coordinator he discussed with concrete paving supervisor, recommended transferring patient for evaluation by gas meter prover to higher level of care. Review of Systems Review of Systems: As reviewed above in [facility] Past Medical History Medical History Bipolar affect, depressed ADHD Surgical History Surgical History History of surgical procedure on mouth Family History Family History Other Unknown family medical history Social History Social History Smoking status: Current some day smoker Tobacco type: e-cigarettes/vaping Alcohol intake: current Drinks per week: 7 Substance use: current Substance use type: marijuana Last use: 12/19/24 Lack of Transportation: No Lack of Food: Never True Current Housing: I Have Housing Concerned About Future Housing: No Difficulty Paying Gas/Electric Bills: No Difficulty Paying for Meds: No Currently Unemployed: No Education: High School Diploma/GED Difficulty w/ Childcare or Family Care: No Spiritual care concerns: No Meds Home Medications and Allergies Home Medications ?Medication ?Instructions ?Recorded ?Confirmed ?Type albuterol sulfate 90 mcg/actuation 2 puff inhalation Q4-6H PRN 12/26/24 12/26/24 History aerosol inhaler shortness of breath or wheezing Allergies Allergy/AdvReac Type Severity Reaction Status Date / Time gluten Allergy Gastrointestinal Verified 01/28/24 18:37 Upset Vital Signs Vital Signs - 24 hr 12/26/24 17:32 12/26/24 19:36 12/26/24 23:23 Temperature 98.6 F 97.2 F L Pulse Rate 92 85 85 Respiratory Rate 18 20 18 Blood Pressure 138/90 125/79 131/82 Pulse Oximetry 100 100 98 Oxygen Delivery Room Air 12/26/24 23:23 12/27/24 00:00 12/27/24 04:00 Temperature Pulse Rate 89 79 Respiratory Rate Blood Pressure Pulse Oximetry Oxygen Delivery Room Air 12/27/24 06:00 12/27/24 08:00 12/27/24 08:00 Temperature 97.3 F L 98.5 F Pulse Rate 74 60 Respiratory Rate 18 17 Blood Pressure 124/82 112/90 Pulse Oximetry 100 100 Oxygen Delivery Room Air 12/27/24 08:00 Temperature Pulse Rate 66 Respiratory Rate Blood Pressure Pulse Oximetry Oxygen Delivery Exam Narrative: GENERAL: [Well-appearing, well-nourished, and in no acute distress.] HEAD: [Normocephalic, atraumatic.] EYES: [PERRLA and EOMI.] ENT: Nares clear, no rhinorrhea or epistaxis. Mucous membranes moist. NECK: Supple. CHEST: [Clear to auscultation. No respiratory distress.] HEART: [Regular rate and rhythm]. No murmur heard. [Normal peripheral pulses.] ABDOMEN: [Soft, nondistended], [nontender], [No rigidity or guarding] EXTREMITIES: Normal range of motion. [No edema.] SKIN: Warm, dry, no rash. NEURO: [No focal deficits]. Alert and oriented [x3.] PSYCH: [Normal mood and affect.] H&P: Results Labs Labs: Short CBC 12/26/24 Range/Units 18:22 WBC 7.5 (4.5-10.0) K/mm3 Hgb 13.1 (12.0-15.0) g/dL Hct 38.3 (37.0-47.0) % Plt Count 170 (150-375) k/mm3 BMP 12/26/24 12/27/24 18:22 06:06 Sodium 132 L 134 L Potassium 3.3 L 3.6 Chloride 96 L 102 Carbon Dioxide 25 24 BUN 4 L 3 L Creatinine 0.81 0.68 L Glucose 105 92 Calcium 9.8 9.2 Cardiac Enzymes 12/27/24 Range/Units 06:06 Troponin I < 0.012 (0.000-0.034) ng/mL Liver Function 12/26/24 12/27/24 Range/Units 18:22 06:06 Total Bilirubin 2.5 H 2.9 H (0.2-1.3) mg/dL Direct Bilirubin 0.0 (0-0.3) mg/dL AST 101 H 105 H (14-36) U/L ALT 40 H 35 (6-35) U/L Alkaline Phosphatase 62 54 (38-126) U/L Albumin 4.8 4.4 (3.5-5.1) g/dL Urine 12/26/24 Range/Units 18:22 Urine Color Dark yellow (Yellow) Urine Appearance Clear (Clear) Urine pH 6.0 (5.0-9.0) Ur Specific [place] 1.013 (1.001-1.035) Urine Protein 1+ H (Negative) mg/dL Urine Glucose (UA) Negative (Negative) mg/dL Assessment and Plan Assessment and plan (1) Witnessed seizure-like activity: Code(s): R56.9 - Unspecified convulsions Status: Acute Assessment and Plan: Unprovoked seizure Denies alcoholism Neurology recommended no initiation of antiepileptic medication Ativan 2 mg IV p.r.n. q.6 hours for seizures Neurochecks q.[address]: No acute intracranial process Brain MRI: Pending Accu-Cheks EEG as per Neurology Neurology consulted Seizure precautions (2) Prolonged QT interval: Code(s): R94.31 - Abnormal electrocardiogram [ECG] [EKG] Status: Acute Assessment and Plan: Reviewed EKG Reviewed home medication Reviewed electrolytes Orthostatic vital TSH ordered On tele Cardiology consulted Plan Code status: Full code Hospitalist MIPS Advance Care Plan I have confirmed that the patient's Advanced Care Plan is present, code status is documented, or surrogate decision maker is listed in patient medical record.: Yes Medication Reconciliation I have utilized all available resources to obtain, update and review the patients current medications (includes all prescriptions, OTC, herbals, cannabis, and nutritional supplements).: Yes
[2024-12-27] MEDS: POTASSIUM CHLORIDE 20 MEQ ER TABLET 40 MEQ PO (08:31)
[2024-12-27] MEDS: MAGNESIUM SULF 2 GM/WATER 50ML 2 GM/50 ML BAG IVPB (08:33)
--- OUTSIDE RECORDS SUMMARY | 2024-12-27 08:54 | XMS_ITS | Clinical Summary ---
Author Organization [facility] Address [address] [place] [address] Care Team Providers Care Credit Portfolio Advisor Name Role Phone Davon Valiente MD Primary Care Provider [phone] Source Comments [facility] [employer],non-owned Affiliates and Associated Physician Practices is amultiple site organization consisting of ambulatory clinics and hospital sitesin [place], [place], [place]. This disclosure is being madepursuant to the Care Everywhere program and may not contain all information available regarding this patient. Last updated 18.[facility] [employer] Allergies No known active allergies Medications * [...] Norgestim-Eth Estrad Triphasic (TRINESSA, 28, PO) Active [place]-3 Fatty Acids (FISH OIL) 1000 MG capsule [...] patient's age to complete this topic Insurance [facility] MEDICAID - OUT OF STATE Care Teams Credit Portfolio Advisor Relationship Specialty Start Date End Date Davon Valiente MD [id number] [phone] PCP - General Allergy and Immunology 06/06/18
--- OUTSIDE RECORDS SUMMARY | 2024-12-27 08:54 | XMS_ITS | Clinical Summary ---
Author Organization [address] Address [address] [place] [id number] Care Team Providers Care Claim Investigator Name Role Phone Zoila Chicas MD Primary Care Provider [phone] Allergies No known active allergies Medications ergocalciferol (VITAMIN D2) 50,000 unit capsule take 1 capsule by oral route every week 0 0 7 Active omega 0-qfm-wez-fish oil (FISH OIL) 1,000 mg (120 mg-180 [...] Comments Blood Pressure 116/82 07/06/2022 2:38 PM KICK PLATE INSTALLER Pulse 88 07/06/2022 2:38 PM KICK PLATE INSTALLER Temperature 36.8 C (98.2 F) 07/06/2022 2:38 PM KICK PLATE INSTALLER Respiratory Rate 16 07/06/2022 2:38 PM KICK PLATE INSTALLER Oxygen Saturation 99% 06/13/2024 10: 40 AM KICK PLATE INSTALLER albuterol neb with PFT per protocol Inhaled Oxygen Concentration - - Weight 80.7 kg (178 lb) 07/06/2022 2:38 PM KICK PLATE INSTALLER Height 175.3 cm (5' 9) 07/06/2022 2:38 PM KICK PLATE INSTALLER Body Mass Index 26.29 07/06/2022 2:38 PM KICK PLATE INSTALLER Plan of Treatment Health Maintenance Due Date [...] Completed 03/07/2013, 06/2012, 08/07/2012 Insurance [employer] [facility] AETNA SIGNATURE [employer] IBEW Care Teams Claim Investigator Relationship Specialty Start Date End Date Zoila Chicas MD [address] [place] [address] PCP - General 08/18/16
--- NOTE | 2024-12-27 09:04 | PCNEURO ---
Entered room to talk with patient and explain test. Another tech entered to perform a test that would take about 45 minutes. Will return to perform EEG at that time.
--- NOTE | 2024-12-27 10:08 | PCNEURO ---
Returned to room to attempt EEG again. Pt getting ECHO done. Will return in 20-30 minutes to complete.
[2024-12-27 10:44] LABS: Beta HCG Quantitative < 2.39 mIU/ML
[2024-12-27 10:56] LABS: Thyroid Stimulating Hormone Reflex 1.390 uIU/mL (0.465-4.68)
[2024-12-27 11:01] LABS: Hepatitis B Surface Antigen Negative (Negative)
[2024-12-27 11:07] LABS: HAV RESULT Negative (Negative); Hepatitis B Core IgM Result Negative (Negative)
--- NOTE | 2024-12-27 11:38 | ECG_ITS ---
Test Date: 2024-12-27 13:58:23 Measurements Intervals [place] Rate: 91 P: 65 [place]: 143 QRS: 57 QRSD: 93 T: 57 QT: 502 QTc: 621 Interpretive Statements SINUS RHYTHM BORDERLINE ST ABNORMALITY- ANTEROLAT/INF LEADS PROLONGED QT INTERVAL BASELINE WANDER- V6 ABNORMAL ECG Compared to ECG 12/27/2024 05:51:34 HEART RATE HAS INCREASED Electronically Signed On 12-27-2024 14:09:01 CDT by Geovany Wisdom D.O.
--- NOTE | 2024-12-27 11:41 | WPDCNINT ---
Assessment and Plan Assessment and plan (1) Prolonged QT interval: Code(s): R94.31 - Abnormal electrocardiogram [ECG] [EKG] Status: Acute Assessment and Plan: Patient was initially admitted to the telemetry floor with possible syncopal episode versus seizures -on EKG and tele patient did have prolonged QTC and had a run of torsades for which she was transferred to the ICU -appreciate cardiology evaluation hand recommendations, will repeat EKG and go from there -TSH was normal (2) Syncope: Code(s): R55 - Syncope and collapse Status: Acute Assessment and Plan: Question syncope, -carotid Dopplers were negative -echocardiogram has been obtained (3) Torsades de pointes: Code(s): I47.21 - Torsades de pointes Status: Acute Assessment and Plan: Magnesium and potassium has been replaced -cardiology following the patient (4) Witnessed seizure-like activity: Code(s): R56.9 - Unspecified convulsions Status: Acute Assessment and Plan: Question seizure-like activity, EEG was done this morning (12/27) -CT brain did not show any acute intracranial abnormalities -Neurology was contacted from the ED. of neurology recommended not initiating antiseizure medications for 1st time event -MRI of the brain has been ordered -carotid Dopplers were negative (5) Elevated LFTs: Code(s): R79.89 - Other specified abnormal findings of blood chemistry Status: Acute Assessment and Plan: LFTs and hyperbilirubinemia -will obtain RUQ ultrasound -hepatitis panel was negative -patient does drink alcohol Plan DVT prophylaxis: SCDs Stress ulcer prophylaxis: Not indicated Nutrition: NPO for MRI Code Status: Full code Critical Care Time Spent: 45 minutes Due to a high probability of clinically significant, life threatening deterioration, the patient required my highest level of preparedness to intervene emergently and I personally spent this critical care time directly and personally managing the patient. This critical care time included obtaining a history; examining the patient; pulse oximetry; ordering and review of studies; arranging urgent treatment with development of a management plan; evaluation of patient's response to treatment; frequent reassessment; and discussions with other providers. It was exclusive of separately billable procedures and treating other patients and teaching time. Please see Assessment and Plan section and the rest of the note for further information on patient assessment and treatment This dictation may have been done utilizing a voice recognition system. Attempts have been made to correct errors. However, there may be uncorrected grammatical, spelling, and recognitions errors present. It Technical Specialist Consult Note Consult date: 12/27/24 Reason for consult: Prolonged QT interval, torsades, syncope HPI: Nathalie Lara is a 24 year old female with history of reactive airway disease, uses p.r.n. inhalers, celiac disease, scoliosis presented the ED on 12/26/2024 breath syncopal episode versus seizures. As per the ER records family noticed patient stating off in space blinking and breathing rapidly for several moments before she lost consciousness. She she had had of ground level fall and hit her head. She also had some foaming from her mouth with irregular breathing. Patient regained consciousness slowly and was awake, alert and oriented in the ER. She did have QT prolongation in the ER, patient was given 20 mEq of potassium and 2 g of magnesium. Patient was admitted to telemetry floor with a was a rapid response for possible torsades. Additional magnesium was given to the patient. And transferred to the ICU for further management Patient seen and examined in the ICU this morning, is awake, alert, oriented. Denies any nausea, vomiting, headaches, chest pain, abdominal pain, shortness some breath at this time. Hemodynamically stable, on room air with adequate O2 sats, adequate urine output PA and states she vapes daily, vapes marijuana every weekend, and she has 1-2 drinks daily and sometimes 3-4 if she is at a bar. According the bedside RN, patient's father said thatshe is drinks a lot. LFTs elevated, elevated bilirubin level. Urine drug screen was negative, ETOH level <10. Beta hCG was within normal limits. EKG showed a QTC of [address]-T changes in the anteroseptal leads Review of Systems Review of Systems: All systems reviewed & are unremarkable except as noted in HPI and below PMFSH Past Medical History Medical History Bipolar affect, depressed ADHD Surgical History Surgical History History of surgical procedure on mouth Family History Family History (Updated 12/26/24 @ 23:37 by Salina Deluna RN) Other Unknown family medical history Social History Social History Smoking status: Current some day smoker Tobacco type: e-cigarettes/vaping Alcohol intake: current Drinks per week: 7 Substance use: current Substance use type: marijuana Last use: 12/19/24 Lack of Transportation: No Lack of Food: Never True Current Housing: I Have Housing Concerned About Future Housing: No Difficulty Paying Gas/Electric Bills: No Difficulty Paying for Meds: No Currently Unemployed: No Education: High School Diploma/GED Difficulty w/ Childcare or Family Care: No Spiritual care concerns: No Meds Home Medications and Allergies Home Medications ?Medication ?Instructions ?Recorded ?Confirmed ?Type albuterol sulfate 90 mcg/actuation 2 puff inhalation Q4-6H PRN 12/26/24 12/26/24 History aerosol inhaler shortness of breath or wheezing Allergies Allergy/AdvReac Type Severity Reaction Status Date / Time gluten Allergy Gastrointestinal Verified 01/28/24 18:37 Upset Vital Signs Vital Signs - 24 hr 12/26/24 17:32 12/26/24 19:36 12/26/24 23:23 Temperature 98.6 F 97.2 F L Pulse Rate 92 85 85 Respiratory Rate 18 20 18 Blood Pressure 138/90 125/79 131/82 Pulse Oximetry 100 100 98 Oxygen Delivery Room Air 12/26/24 23:23 12/27/24 00:00 12/27/24 04:00 Temperature Pulse Rate 89 79 Respiratory Rate Blood Pressure Pulse Oximetry Oxygen Delivery Room Air 12/27/24 06:00 12/27/24 08:00 12/27/24 08:00 Temperature 97.3 F L 98.5 F Pulse Rate 74 60 Respiratory Rate 18 17 Blood Pressure 124/82 112/90 Pulse Oximetry 100 100 Oxygen Delivery Room Air 12/27/24 08:00 12/27/24 08:46 12/27/24 10:00 Temperature 98.4 F Pulse Rate 66 63 Respiratory Rate 20 Blood Pressure 125/81 134/86 Pulse Oximetry 98 Oxygen Delivery 12/27/24 10:00 12/27/24 10:07 12/27/24 10:08 Temperature Pulse Rate 69 Respiratory Rate Blood Pressure 131/100 H 118/88 Pulse Oximetry Oxygen Delivery 12/27/24 10:22 Temperature Pulse Rate 65 Respiratory Rate 20 Blood Pressure Pulse Oximetry 98 Oxygen Delivery Room Air Exam Narrative: General: Pleasant young female in no acute distress HEENT:? Pupils equal and reactive, sclera is clear, a bruise on the head and chin on noted Neck:? Supple Respiratory:? Clear to auscultation bilaterally Cardiac:? S1-S2 is normal, regular rate and rhythm Abdomen:? Soft, nontender, nondistended, normoactive bowel sounds Extremities:? No edema, palpable pedal pulses Neuro:? Patient awake, alert, oriented x3, nonfocal Skin:? Warm and dry Psych:? Normal mentation and affect Results Labs 12/26/24 18:22 12/27/24 06:06 Labs: Short CBC 12/26/24 Range/Units 18:22 WBC 7.5 (4.5-10.0) K/mm3 Hgb 13.1 (12.0-15.0) g/dL Hct 38.3 (37.0-47.0) % Plt Count 170 (150-375) k/mm3 BMP 12/26/24 12/27/24 18:22 06:06 Sodium 132 L 134 L Potassium 3.3 L 3.6 Chloride 96 L 102 Carbon Dioxide 25 24 BUN 4 L 3 L Creatinine 0.81 0.68 L Glucose 105 92 Calcium 9.8 9.2 Cardiac Enzymes 12/27/24 Range/Units 06:06 Troponin I < 0.012 (0.000-0.034) ng/mL Liver Function 12/26/24 12/27/24 Range/Units 18:22 06:06 Total Bilirubin 2.5 H 2.9 H (0.2-1.3) mg/dL Direct Bilirubin 0.0 (0-0.3) mg/dL AST 101 H 105 H (14-36) U/L ALT 40 H 35 (6-35) U/L Alkaline Phosphatase 62 54 (38-126) U/L Albumin 4.8 4.4 (3.5-5.1) g/dL Urine 12/26/24 Range/Units 18:22 Urine Color Dark yellow (Yellow) Urine Appearance Clear (Clear) Urine pH 6.0 (5.0-9.0) Ur Specific [place] 1.013 (1.001-1.035) Urine Protein 1+ H (Negative) mg/dL Urine Glucose (UA) Negative (Negative) mg/dL Quality VTE Prophylaxis VTE prophylaxis: mechanical ordered Hospitalist MIPS Advance Care Plan I have confirmed that the patient's Advanced Care Plan is present, code status is documented, or surrogate decision maker is listed in patient medical record.: Yes Medication Reconciliation I have utilized all available resources to obtain, update and review the patients current medications (includes all prescriptions, OTC, herbals, cannabis, and nutritional supplements).: Yes
--- NOTE | 2024-12-27 12:30 | P.CONCA_ITS ---
<Statement entered by Joaquin Ayon MD - 12/27/24 17:36> This documentation has been reviewed and approved. Attending attestation: Patient is a 24-year-old female who was admitted for syncope versus seizure. She was at work yesterday and suddenly lost consciousness. She fell to the floor. Reportedly was standing there as a co- worker was talking to her and she was not responsive immediately before passing out on landing on the floor. She then remembers EMS and her father being by her upon awakening. She was conversant but a bit groggy. She was admitted and this morning had a run of polymorphic ventricular tachycardia. It spontaneously broke. She was symptomatic though with some dizziness. Later in the day she had another episode of sustained polymorphic ventricular tachycardia while outside and radiology following an MRI. She did pass out and did receive CPR and 1 defibrillation. This did convert her back to sinus rhythm. Workup includes an EKG which shows a prolonged QTC of nearly 600. She does not routinely feel palpitations. She states that she drinks a little bit of alcohol and last drink on Monday which is 2 days ago and rarely uses marijuana and last use of marijuana was may be 3 or 4 days ago. No other drugs, no antibiotics recently although she was prescribed ciprofloxacin but states that she really did not take it. This was for sore throat. She has not felt very well in general recently including abdominal pain and possible celiac disease. She has had no previous syncopal episodes. Describes no chest pain, paroxysmal nocturnal dyspnea, orthopnea, unusual shortness of breath. Objective: Heart rate around 100. General: Awake alert oriented appears stated age Eyes: Anicteric HEENT: Abrasion noted on her chin. Neck is supple. Lungs: Clear to auscultation bilaterally Musculoskeletal: Tenderness to palpate her upper chest from CPR Cardiac: Regular rhythm without murmur Abdomen soft Extremities: No edema Neuro: Awake alert oriented Psych: Anxious but appropriate Assessment/plan: Syncope: This is related upon more ventricular tachycardia. QTC markedly prolonged. She is currently on Isuprel to increase heart rate and short QTC. Replace magnesium and potassium as needed. She is in ICU. Echocardiogram was already ordered and personally reviewed.. Her echocardiogram was unremarkable with preserved ejection fraction. No significant valvular issues. She is awaiting transfer to [facility] for further evaluation and treatment. Abdominal pain:? Etiology. Possible history of celiac disease although uncertain workup. In reviewing recent records there has been some concern about a sore throat recently a as well as abdominal pain, possible pyelonephritis. She states she has not been eating very much lately. Greater than 45 minutes (55 minutes) are spent with the patient, obtain history, physical examination, assessment and plan in addition to discussing treatment with nursing staff as well as discussing the case including history and physical with Alison Schwarz performing shared decision making. Joaquin Ayon MD, [facility] Assessment and Plan Assessment and plan (1) Prolonged QT interval: Code(s): R94.31 - Abnormal electrocardiogram [ECG] [EKG] Status: Acute Assessment and Plan: Etiology unclear. Prior EKGs with normal QT interval and no medication use that would cause QT prolongation. Repeat EKG now to reassess QT interval following brief episodes of torsades this morning which did not result in cardiac arrest. Avoid bradycardia. Can use isoproterenol if bradycardia occurs. (2) Torsades de pointes: Code(s): I47.21 - Torsades de pointes Status: Acute Assessment and Plan: Secondary to QT prolongation. Magnesium 2.2 following magnesium administration this morning. She will need to be transferred to a higher level of care with electrophysiology services available for further workup and ICD implantation. (3) Syncope: Code(s): R55 - Syncope and collapse Status: Acute Assessment and Plan: Most likely related to ventricular arrhythmia. Echo pending (4) Witnessed seizure-like activity: Code(s): R56.9 - Unspecified convulsions Status: Acute Assessment and Plan: MRI brain did not demonstrate any evidence of seizure. History of Present Illness History of Present Illness Consult date/time: 12/27/24 12:30 Requesting physician: Navya Hoff DO Consult reason: Other (QT prolongation, VT, syncope) Reason For Visit: Syncope versus seizure Narrative: Nathalie Lara is a 24-year-old female with no significant past medical history. She comes to the hospital following a syncopal event yesterday. Patient describes feeling confused as she was beginning to leave work and not being able to find or identify items. She also remembers being asked questions and being able to for the response in her head but not verbalize it. She recalls feeling palpitations throughout the afternoon. She did ultimately lose consciousness and per her coworkers report, she was rigid, shaking, and had saliva coming out of her mouth. She remembers waking up with a lot of people standing around her and has felt very tired and ?foggy? since that time. Early this morning, she experienced palpitations and heaviness in her chest accompanied with a sensation that she was going to pass out. On the monitor at that time it did appear that she was in polymorphic ventricular tachycardia. This resolved quickly without any intervention. She was then transferred to the ICU. She denies any illicit drug use or prescription drug use. She does vape marijuana once weekly and drinks anywhere from 1-4 alcoholic drinks on a daily basis. She states she has been drinking more over the past month because of increased stress and anxiety. She does not have any known family history of sudden cardiac as she is adopted does not have information about her biological parents medical history. She feels well currently aside from feeling fatigued. Review of Systems 2 Review of Systems: All systems reviewed & are unremarkable except as noted in HPI and below PMFSH Past Medical History Medical History Bipolar affect, depressed ADHD Surgical History Surgical History History of surgical procedure on mouth Family History Family History Other Unknown family medical history Social History Social History Smoking status: Current some day smoker Tobacco type: e-cigarettes/vaping Alcohol intake: current Drinks per week: 7 Substance use: current Substance use type: marijuana Last use: 12/19/24 Lack of Transportation: No Lack of Food: Never True Current Housing: I Have Housing Concerned About Future Housing: No Difficulty Paying Gas/Electric Bills: No Difficulty Paying for Meds: No Currently Unemployed: No Education: High School Diploma/GED Difficulty w/ Childcare or Family Care: No Spiritual care concerns: No Meds Home Medications and Allergies Home Medications ?Medication ?Instructions ?Recorded ?Confirmed ?Type albuterol sulfate 90 mcg/actuation 2 puff inhalation Q 4-6H PRN 12/26/24 12/26/24 History aerosol inhaler shortness of breath or wheez ing Allergies Allergy/AdvReac Type Severity Reaction Status Date / Time gluten Allergy Gastrointestinal Verified 01/28/24 18:37 Upset Vital Signs Vital Signs - 24 hr 12/26/24 17:32 12/26/24 19:36 12/26/24 23:23 Temperature 37.0 C 36.2 C L Pulse Rate 92 85 85 Respiratory Rate 18 20 18 Blood Pressure 138/90 125/79 131/82 Pulse Oximetry 100 100 98 Oxygen Delivery Room Air 12/26/24 23:23 12/27/24 00:00 12/27/24 04:00 Temperature Pulse Rate 89 79 Respiratory Rate Blood Pressure Pulse Oximetry Oxygen Delivery Room Air 12/27/24 06:00 12/27/24 08:00 12/27/24 08:00 Temperature 36.3 C L 36.9 C Pulse Rate 74 60 Respiratory Rate 18 17 Blood Pressure 124/82 112/90 Pulse Oximetry 100 100 Oxygen Delivery Room Air 12/27/24 08:00 12/27/24 08:46 12/27/24 10:00 Temperature 36.9 C Pulse Rate 66 63 Respiratory Rate 20 Blood Pressure 125/81 134/86 Pulse Oximetry 98 Oxygen Delivery 12/27/24 10:00 12/27/24 10:07 12/27/24 10:08 Temperature Pulse Rate 69 Respiratory Rate Blood Pressure 131/100 H 118/88 Pulse Oximetry Oxygen Delivery 12/27/24 10:22 12/27/24 12:00 Temperature 36.9 C Pulse Rate 65 61 Respiratory Rate 20 18 Blood Pressure 119/79 Pulse Oximetry 98 99 Oxygen Delivery Room Air Exam 2 Const: General: comfortable, no acute distress, alert and awake O rientation/consciousness: patient oriented x3 HENMT: Head: normal to inspection Eyes: General: appearance normal, both eyes and all related structures P upils: Equal, round and reactive pupils present Neck: Neck: normal visual inspection, supple and no JVD Carotids: normal carotid upstroke Resp: Effort & Inspection: normal respiratory effort Auscultation: clear to auscultation bilaterally Cardio: Rate: regular rate Rhythm: regular rhythm Heart sounds: S1 normal heart sound present, S2 normal heart sound present and no murmurs GI: Auscultation: normal bowel sounds Skin: General skin exam: normal color Neuro: General: patient oriented x3 Cranial nerves: Yes Equal, round and reactive pupils present Extrem: General: normal to inspection Psych: Appearance: grossly normal Mental Status: mental status grossly normal Results Labs and Meds 12/28/24 03:38 12/28/24 03:38 Lab results: Cardiac Enzymes 12/26/24 12/27/24 Range/Units 18:22 06:06 AST 101 H 105 H (14-36) U/L Troponin I < 0.012 (0.000-0.034) ng/mL CBC 12/26/24 Range/Units 18:22 WBC 7.5 (4.5-10.0) K/mm3 RBC 3.77 L (4.2-5.4) M/mm3 Hgb 13.1 (12.0-15.0) g/dL Hct 38.3 (37.0-47.0) % Plt Count 170 (150-375) k/mm3 Lymph # (Auto) 0.98 (0.9-3.2) K/mm3 Aiken # (Auto) 0.6 (0.1-0.6) K/mm3 Eos # (Auto) 0.0 (0-0.3) K/mm3 Baso # (Auto) 0.0 (0.0-0.1) K/mm3 Comprehensive Metabolic Panel 12/26/24 12/27/24 Range/Units 18:22 06:06 Sodium 132 L 134 L (137-145) mmol/L Potassium 3.3 L 3.6 (3.4-5.0) mmol/L Chloride 96 L 102 (98-107) mmol/L Carbon Dioxide 25 24 (22-30) mmol/L BUN 4 L 3 L (7-17) mg/dL Creatinine 0.81 0.68 L (0.7-1.0) mg/dL Glucose 105 92 (65-110) mg/dL Calcium 9.8 9.2 (8.4-10.2) mg/dL Direct Bilirubin 0.0 (0-0.3) mg/dL AST 101 H 105 H (14-36) U/L ALT 40 H 35 (6-35) U/L Alkaline Phosphatase 62 54 (38-126) U/L Total Protein 8.2 7.5 (6.3-8.2) g/dL Albumin 4.8 4.4 (3.5-5.1) g/dL Intake and Output 12/26/24 12/27/24 12/27/24 23:59 07:59 15:59 Intake Total 1150 300 Balance 1150 300 Intake: IV 1150 Sodium Chloride 0.9% IV 1,000 1000 ml @ 999 mls/hr IV CONT .Q1H1M STA Rx#:[id number] KCl 20 Meq/Sw 100 ml 100 ml @ 100 50 mls/hr IVPB ONCE STA Rx#: [id number] Magnesium Sulf 2 gm/Water 50Ml 50 2 gm In 50 ml @ 25 mls/hr IVPB ONCE ONE Rx#:[id number] Oral 300 Other: # Unmeasured Voids 2
--- NOTE | 2024-12-27 14:27 | P.CODEBLUE_ITS ---
Code Blue Note Code Blue Note Time Arrived at Code Blue: I arrived at 1:31 p.m. Code was called at 1:30 p.m. ROSC at 1:38 p.m. Initial Rhythm on Arrival: Asystole/torsades Airway Management: Pt being bagged on arrival Chest Compressions: In process on arrival to bedside Result of Code Blue: Pt regained consciousness Cardiac Rhythm Post Code: Sinus tachycardia Code Blue Summary: Patient just finished her MRI brain, was sitting in the wheelchair, rolled her and went unresponsive, according the bedside nurse she lost a pulse, initially a rapid response was called which converted to in a code blue. Upon my arrival, ER physician was already present and started running the code. CPR was in process, patient was receiving bag-mask ventilation, patient was given magnesium, epinephrine per ACLS protocol. She did developed rapid torsades in be in ventricular fibrillation for which she was defibrillated with 200 joules x1, CPR was restarted, patient did have a good rhythm on the monitor, on pulse check she had a bounding pulse and was in sinus tachycardia. Patient woke up, was breathing amiodarone, brought her to the ICU which she was more awake and answering questions appropriately. Patient was worked up to the monitors, currently in sinus rhythm with rates in the 80s and 90s, adequate blood pressures, good O2 sats on room air. Discussed with reel man, recommended transferring patient for evaluation by inspector heating and refrigeration to higher level of care Discussed with patient's father on the phone and updated regarding the cardiac event and that she will be transferring to [facility] for evaluation by inspector heating and refrigeration
[2024-12-27] MEDS: WATER IV CONT (15:55)
[2024-12-27] MEDS: ISOPROTERENOL HCL IV CONT (15:55)
[2024-12-27] MEDS: DEXTROSE 5% IV CONT (15:55)
[2024-12-27] MEDS: ACETAMINOPHEN 325 MG TABLET 650 MG PO (20:56)
[2024-12-28] VITALS: BP 98/61; PULSE 105; PULSE 94; RESP 18; TEMP 36.7; O2SAT 96
[2024-12-28 02:00] VITALS: BP 98/62; PULSE 85; PULSE 94; RESP 16; TEMP 36.7; O2SAT 100
--- NOTE | 2024-12-28 02:00 | PC.NURSE ---
Called placed to Fausto patient's dad, r/t update on transfer to [facility].
--- NOTE | 2024-12-28 02:05 | PC.NURSE ---
Report called to Ivis KOTHARI at [facility] r/t patient transfer.
--- NOTE | 2024-12-28 02:52 | PC.NURSE ---
[place] ambulance services contacted due to delay in transport previously set up-PD paged out trip.
--- NOTE | 2024-12-28 03:02 | PC.NURSE ---
Received call from [facility]. Trip not set up due to ETA of 6am, if no 911 calls.
[2024-12-28] MEDS: ACETAMINOPHEN 325 MG TABLET 650 MG PO (03:13)
--- NOTE | 2024-12-28 03:22 | PC.NURSE ---
0322 pt started to have dysrhythmias, patient A&O, but slow to respond, 2L of O2 placed on patient, tremors noted. STAT EKG ordered at this time. BP 124/82 HR 131 R 16 O2 100%. Isoprotenerol drip paused. 0331 pt continues to have dysrhythmias, code called, patient A&O, pale, diaphoretic and stating that she feels like her heart is going to pop out of her chest. BP 137/93 HR 140 R 31 O2 100%. 0333 Dr. Kevin and other staff at bedside at this time, patient continues to go in and out of dysrhythmias. Pt awake and A&O at time. Another EKG ordered at this time. Labs being drawn at this time.
--- NOTE | 2024-12-28 03:22 | ECG_ITS ---
Test Date: 2024-12-28 03:26:02 Measurements Intervals Depue Rate: 113 P: 96 PA: 125 QRS: 66 QRSD: 90 T: 78 QT: 357 QTc: 490 Interpretive Statements SINUS TACHYCARDIA WITH VENTRICULAR BIGEMINY VENTRICULAR COUPLET BASELINE ARTIFACT- I, II, III, AVR, AVL, AVF, V1-V6 ABNORMAL ECG Compared to ECG 12/27/2024 13:58:23 VENTRICULAR BIGEMINY NOW PRESENT Electronically Signed On 12-28-2024 07:29:14 CDT by Geovany Wisdom D.O.
[2024-12-28 03:43] LABS: Hematocrit 38.8 % (37.0-47.0); Hemoglobin 13.0 g/dL (12.0-15.0); Immature Granulocyte Percent A 0.2 % (0-0.5); Lymphocytes Absolute Auto 1.33 K/mm3 (0.9-3.2); Mean Corpuscular HGB Conc 33.5 g/dl (32-36); Mean Corpuscular Hemoglobin 34.6 pg (26-34); Mean Corpuscular Volume 103.2 fl (80-100); Nucleated Red Blood Cells Absolute Auto 0.000 K/mm3 (0.0-0.012); Nucleated Red Blood Cells Perc 0.0 % (0.0-0.2); Platelet Count Result 174 k/mm3 (150-375); Red Blood Count 3.76 M/mm3 (4.2-5.4); White Blood Count 8.5 K/mm3 (4.5-10.0)
--- NOTE | 2024-12-28 03:47 | PDCODEBLUE ---
Code Blue Note Code Blue Note Time Arrived at Code Blue: 032 Initial Rhythm on Arrival: Torsades Airway Management: No airway on arrival Chest Compressions: No compressions given Result of Code Blue: Transfer Cardiac Rhythm Post Code: Pt transferred to [facility] where she was previously accepted. Code Timo Summary: I was called to a [facility] blue at 032 and was accompanied by ER attending, Dr. Rushing. Pt found to have torsades. On Isoproterenol. Magnesium 2G pushed x2 for a total of 4mg and a drip was started. Pt has protected her airway thus far and she did not require any additional defibrillation. Labs obtained emergently. As pt has an available bed at [place], she is being emergently flown at this time. They are updated as to her condition and pt stable at time of transfer.
[2024-12-28] MEDS: MAGNESIUM SULF 4 GM/WATER100ML 4 GM/100 ML BAG IVPB (03:48)
--- NOTE | 2024-12-28 03:53 | P.RRN_ITS ---
Critical Care Event Note Summary Code activated: Yes Narrative: This pt returned to a rhythm consistent with Torsades while on Isoprotorenal and waiting on transport to [facility]. She had previous Torsades requiring defibrillation earlier in the day. Pt protecting her own airway with max heart rate 180s but not sustaining. Magnesium 2G given IVP x2 in ER and Drip initiated to control rhythm and rate. No loss of pulse at any time. Pt with favorable response to medications given with stable heart rate ST 110 on the monitor at time of transfer. Overall condition is guarded. This case had a high probability of a clinically significant, sudden, or life threatening deterioration of this patient's condition which required my full and direct attention, intervention and personal management. Critical care time: less than 30 mins
--- NOTE | 2024-12-28 03:54 | PC.NURSE ---
0342 Magnesium 2gm iv push over 2 minutes 0348 magnesium gtt started @ 2gm over 1 hour. 0352 Magnesium 2gm iv push over 2 minutes 0350 pt had a 10 beat run of v-tach. pt placed on pads. 0353 Air-Evac at bedside to get report and assume care of patient.
[2024-12-28 04:00] VITALS: BP 120/88; PULSE 101; PULSE 111; RESP 11; O2SAT 100; O2SAT 99
--- NOTE | 2024-12-28 04:12 | PC.NURSE ---
0406 Magnesium 2g iv push over 2 minutes
--- NOTE | 2024-12-28 04:23 | PC.NURSE ---
Patient transferred to [facility] at this time to room [id number] via [facility]. Patient's dad, Fausto, at bedside and aware of patient's transfer.
[2024-12-28 04:42] LABS: Alanine Aminotransferase 98 U/L (6-35); Albumin Level 4.7 g/dL (3.5-5.1); Alkaline Phosphatase 67 U/L (38-126); Anion Gap 13 mmol/L (4-12); Aspartate Amino Transferase 329 U/L (14-36); Bilirubin,Total 2.0 mg/dL (0.2-1.3); Calcium 9.5 mg/dL (8.4-10.2); Carbon Dioxide 20 mmol/L (22-30); Chloride 99 mmol/L (98-107); Estimated CRCL calculation 119 ml/min; Estimated Glomerular Filt Rate > 60; Glucose 105 mg/dL (65-110); Lipase 58 U/L (23-300); Magnesium 2.4 mg/dL (1.6-2.3); Potassium 3.2 mmol/L (3.4-5.0); Sodium 132 mmol/L (137-145); Total Protein 8.0 g/dL (6.3-8.2)
[2024-12-28 04:47] LABS: Blood Urea Nitrogen < 2 mg/dL (7-17)
--- NOTE | 2024-12-28 07:34 | P.PCNBEDED_ITS ---
Procedures Other Procedures Procedure 1: Other Procedure: Procedure note: Abbey blue report, Critical care time Narrative: I was called to bedside in the ICU to room 3 for code blue in process. Patient was found to be in ventricular dysrhythmia with bigeminy deteriorating into ventricular tachycardia and torsades de pointes. Patient was admitted yesterday for syncope versus seizure was found to have prolonged QTC intervals that increased from 400-5 100-600 precipitating torsades in a similar code blue event and the MRI machine yesterday. She is awake not intubated, saturating well on room air. Hemodynamically stable but does get symptomatic when she gets ventricular dysrhythmias on the monitor. She is currently on isoproterenol infusion with titrated wall heart rates between 90 and 110 per Cardiology recommendations. Patient had ventricular tachycardia precipitating into torsades that required multiple rounds of IV medications including 2 g boluses of magnesium which immediately aborted the electrical activity and raised her heart rate into the 120s into normal sinus rhythm with no sustained ectopy. During episodes of torsades patient becomes minimally responsive but breathing comfortably and has a pulse. She was never intubated or on any vasopressor medications that she held her blood pressure during these events. These events were witnessed multiple times she was given 2 g boluses each time over a minute with abrupt cessation of her ventricular dysrhythmia. She was placed on magnesium infusion and her Isuprel and magnesium more co titrated to affect to improve her blood pressure and heart rate. During the multitude of events we noticed that whenever patient's heart rate did below 90 beats per minute she had episodes of ventricular dysrhythmia and torsades. Magnesium helped improve her heart rate. Had what point we discussed managing patient's symptoms with lidocaine infusion versus overdrive pacing but patient was symptomatic leak controlled on magnesium. No signs of respiratory depression and she was awake and able to answer questions. She has an ICU bed at [facility] and was emergently flown out to their ICU. I did have to push additional magnesium on the way to the emergency department to the exit and to the helipad for transfer. Patient has been stabilized to the best of this facilities abilities and successfully transferred to higher level of care center for electrophysiology and likely cardiac interventions. I did receive report later on after patient was successfully transferred from the critical care transport team that patient has been successfully received by the ICU at [facility] and stable. Total critical care time: 75 minutes, exclusive of separately billable procedures
--- NOTE | 2024-12-28 15:36 | WPDNEUROLOGY ---
Neurology EEG Report General Information Date of Study: 12/27/24 TEST EEG DIAGNOSIS seizures CONDITION OF RECORDING awake, drowsy and asleep. EEG NUMBER [id number] CLINICAL HISTORY 24 years old female had a syncopal episode. Patient reported she felt disoriented, hot,and Out of balance. Subsequently she started blinking and fell forward and hit her head when they turn or she had foam coming out of her mouth her body was tight and her whole body was black and blue. Her friend tried asking her questions, she kept laughing and looking at her friend in the eyes. She said after she came to. She felt confused and had a hard time walking. Her friend that his co-worker informed her of this incident. This has never happened before to her knowledge. EEG DESCRIPTION Basic resting occipital frequency consists of low-voltage to medium voltage 9 to 11 hertz per 2nd alpha admixed with low-voltage 15 to 18 hertz per 2nd beta. Low-voltage beta activity seen diffusely admixed with waxing and waning posterior alpha rhythm. Multiple movement artifacts and eye movement artifacts are noted throughout the tracing. Photic stimulation not done. Hyperventilation not done. Bilateral symmetrical sleep activity is noted during brief periods of sleep. Non paroxysmal. Nonfocal. Nonlateralizing. IMPRESSION No significant abnormalities noted. Clinical correlation recommended as this EEG is not diagnostic of seizure but the EEG can be normal even in a patient with seizure disorder.
--- NOTE | 2025-01-04 16:16 | P.TS_ITS ---
Transfer Discharge Sum: Prov Provider Date of admission: 12/26/24 22:20 Primary care physician: PHYSICIAN NOT ON STAFF Admitting clinician: Navya Hoff DO Consults: 12/27/24 Consult to Physician Routine Comment: Consulting Provider: field talent qualification specialist/MD group to consult: [facility] Cardiology Reason for consultation: QT prolongation, V-tach, syncope Has provider been notified: No Consult to Physician Routine Comment: Consulting Provider: Davon Flor Reason for consultation: QT prolongation , V tach, syncope Has provider been notified: Yes 12/27/24 07:35 Consult to Physician Routine Comment: Consulting Provider: field talent qualification specialist/MD group to consult: Neurology Reason for consultation: Seizure Has provider been notified: No DS: Admitting Diagnosis Discharge Date 12/28/24 Admitting Diagnosis Syncope/seizures Transfer Discharge Sum: Med Medications Active and Home Medications: Home Medications albuterol sulfate 90 mcg/actuation aerosol inhaler 2 puff inhalation Q4-6H PRN shortness of breath or wheezing 12/26/24 [History Confirmed 12/26/24] Transfer Discharge Sum: Hosp Hospital Course Hospital course: Patient is a 24-year-old female with a past medical history of celiac disease and scoliosis presented to the ER due to the potential seizures versus syncopal episode. As per record patient was witnessed by family member noted that she was staring off the space blinking and breathing rapidly for several moments before she lost consciousness and fell to the ground with head trauma. She was unconscious for several minutes but breathing and had some foaming at the mouth with irregular breathing patterns but did not have any generalized shaking activity or classic tonic clonic activity. Patient regained consciousness slowly and currently is awake alert oriented. She has some minor henderson from the head trauma with some abrasions to the right side of her face and had but no significant bleeding or hematoma formation. Pertinent ED labs: WBC 7.5, hemoglobin 13.1, hematocrit 38.3, platelet 170, sodium 134, potassium 3.6, creatinine 0.6, GFR greater than 60 EKG shows QTC [address] no acute intracranial process Patient is admitted in the setting syncope and seizure workup. was consulted from the ED and recommended admission for MRI with and without contrast as well as an EEG given concern for potential first-time seizure activity based on the description of the events although other etiology still not excluded. Recommended no initiation of antiepileptic medications for first- time event at this time. Consulted Cardiology for possible syncope, and prolong QTC. Ordered ECHO, EEG, Brain MRI and Carotid Doppler. In the event of nausea or vomiting recommend aprepitant. Avoid QTC prolongation agent including Zofran. Patient just finished her MRI brain, was sitting in the wheelchair, rolled her and went unresponsive, according the bedside nurse she lost a pulse, initially a rapid response was called which converted to in a code blue. Upon intersivist arrival, ER physician was already present and started running the code. CPR was in process, patient was receiving bag-mask ventilation, patient was given magnesium, epinephrine per ACLS protocol. She did developed rapid torsades in be in ventricular fibrillation for which she was defibrillated with 200 joules x1, CPR was restarted, patient did have a good rhythm on the monitor, on pulse check she had a bounding pulse and was in sinus tachycardia. Patient woke up, was breathing , brought her to the ICU which she was more awake and answering questions appropriately. Patient was worked up to the monitors, currently in sinus rhythm with rates in the 80s and 90s, adequate blood pressures, good O2 sats on room air. As per m48/m60 tank driver he discussed with representative personal service, recommended transferring patient for evaluation by data entry analyst to higher level of care. Patient Condition: Gaurded Prognosis Time Spent with Patient Time attestation: Total time spent providing and/or coordinating transfer services: 45 minutes
== END 2024-12-28 04:23 | disposition short-term general hospital (02) | DRG 310 ==
LOC: ANHED 21:10 → ANH2MED 12-27 00:36 → ANHICU 12-27 14:33
PROVIDERS: Internal Medicine; Registered Nurse; Admitting Provider Internal Medicine; Emergency Provider Student in an Organized Health Care Education/Training Program; Visit Provider General Practice
DX: I47.21 Torsades de pointes (principal); S00.81XA Abrasion of other part of head, initial encounter; W19.XXXA Unspecified fall, initial encounter; R55 Syncope and collapse; R56.9 Unspecified convulsions; F31.9 Bipolar disorder, unspecified; F17.290 Nicotine dependence, other tobacco product, uncomplicated; J45.909 Unspecified asthma, uncomplicated; K90.0 Celiac disease; R94.31 Abnormal electrocardiogram [ECG] [EKG]
CPT/HCPCS: 36415; 70450; 70553; 71046; 76705; 80048; 80053; 80074; 80076; 80307; 81001; 82077; 82607; 82746; 83690; 83735; 84100; 84443; 84484; 84702; 85025; 92950; 93005; 93306; 93880; 95816; 96365; 96366; 96368; 96375; 99285; A9270; A9577; J0168; J2003; J2060; J3475; J3480; J7030; J7060

== ENCOUNTER 2025-02-01 04:31 | Emergency (ER) | payer OTHER, SELFPAY ==
[2025-02-01] VITALS (7 sets, daily range): BP systolic 105–123; BP diastolic 79–92; PULSE 80; RESP 15–26; TEMP 36.8; O2SAT 96–100
--- NOTE | ~2025-02-01 | XR_ITS ---
Examination: XR chest 2V Clinical History: SOB and CP Comparison: 12/26/2024 Technique: PA and Lateral Findings: Left ICD. Cardiomediastinal silhouette normal size and configuration. Lungs clear. No acute bony abnormality. IMPRESSION: 1. No acute cardiopulmonary findings. Reviewed, dictated and finalized at location R.
--- NOTE | 2025-02-01 04:32 | ECG_ITS ---
Test Date: 2025-02-01 04:38:56 Measurements Intervals [place] Rate: 80 P: 101 SD: 186 QRS: 37 QRSD: 88 T: 58 QT: 319 QTc: 368 Interpretive Statements ELECTRONIC ATRIAL PACEMAKER NONSPECIFIC T-WAVE ABNORMALITY ABNORMAL RHYTHM ECG Compared to ECG 12/28/2024 03:26:02 THE PATIENT IS ATRIALLY PACED AND VENTRICULAR ECTOPIC ACTIVITY IS NOT SEEN Electronically Signed On 02-01-2025 08:49:45 CDT by Davon Flor M.D.
[2025-02-01] MEDS: ASPIRIN 81 MG CHEWABLE TABLET 324 MG PO (04:55)
[2025-02-01 05:03] LABS: Hematocrit 36.9 % (37.0-47.0); Hemoglobin 11.8 g/dL (12.0-15.0); Immature Granulocyte Percent A 0.4 % (0-0.5); Lymphocytes Absolute Auto 2.29 K/mm3 (0.9-3.2); Mean Corpuscular HGB Conc 32.0 g/dl (32-36); Mean Corpuscular Hemoglobin 33.5 pg (26-34); Mean Corpuscular Volume 104.8 fl (80-100); Nucleated Red Blood Cells Absolute Auto 0.000 K/mm3 (0.0-0.012); Nucleated Red Blood Cells Perc 0.0 % (0.0-0.2); Platelet Count Result 191 k/mm3 (150-375); Red Blood Count 3.52 M/mm3 (4.2-5.4); White Blood Count 7.9 K/mm3 (4.5-10.0)
[2025-02-01 05:27] LABS: INR 1.0; Prothrombin Time 13.2 Seconds (11.1-14.7)
[2025-02-01 05:29] LABS: Partial Thromboplastin Time 26.0 Seconds (22.3-36.8)
[2025-02-01 05:30] LABS: Alanine Aminotransferase 14 U/L (6-35); Albumin Level 4.1 g/dL (3.5-5.1); Alkaline Phosphatase 43 U/L (38-126); Anion Gap 7 mmol/L (4-12); Aspartate Amino Transferase 23 U/L (14-36); Bilirubin,Total 0.4 mg/dL (0.2-1.3); Blood Urea Nitrogen 17 mg/dL (7-17); Calcium 9.0 mg/dL (8.4-10.2); Carbon Dioxide 26 mmol/L (22-30); Chloride 102 mmol/L (98-107); Estimated CRCL calculation 93 ml/min; Estimated Glomerular Filt Rate > 60; Glucose 88 mg/dL (65-110); Lipase 97 U/L (23-300); Magnesium 1.8 mg/dL (1.6-2.3); Potassium 4.2 mmol/L (3.4-5.0); Sodium 135 mmol/L (137-145); Total Protein 6.8 g/dL (6.3-8.2)
[2025-02-01 05:37] LABS: Troponin I < 0.012 ng/mL (0.000-0.034)
--- NOTE | 2025-02-01 05:47 | ED.CHESTPAIN ---
HPI - Chest Pain General Chief Complaint: Chest Pain Stated Complaint: SOB and chest pain Time Seen by Provider: 02/01/25 04:39 History of Present Illness HPI narrative: Patient was recently admitted here, found have prolonged QTC, complicated by multiple episodes of torsades requiring AICD placement presents here when she woke up from sleep with some shortness of breath and chest tightness. Has had these symptoms intermittently for the last few weeks, worse today, still present currently though better than when she 1st woke up. Has not felt her AICD firing Related Data Home Medications ?Medication ?Instructions ?Recorded ?Confirmed ?Last Taken ?Type albuterol sulfate 90 mcg/actuation 2 puff inhalation Q4-6H PRN 12/26/24 12/26/24 Unknown History aerosol inhaler shortness of breath or wheezing Allergies Allergy/AdvReac Type Severity Reaction Status Date / Time gluten Allergy Gastrointestinal Verified 02/01/25 04:46 Upset Review of Systems Review of Systems: All systems reviewed & are unremarkable except as noted in HPI and below PMFSH Past Medical History Medical History Bipolar affect, depressed ADHD Surgical History Surgical History History of surgical procedure on mouth Family History Family History Other Unknown family medical history Social History Social History Smoking status: Current some day smoker Tobacco type: e-cigarettes/vaping Alcohol intake: current Drinks per week: 7 Substance use: current Substance use type: marijuana Last use: 12/19/24 Lack of Transportation: No Lack of Food: Never True Current Housing: I Have Housing Concerned About Future Housing: No Difficulty Paying Gas/Electric Bills: No Difficulty Paying for Meds: No Currently Unemployed: No Education: High School Diploma/GED Difficulty w/ Childcare or Family Care: No Spiritual care concerns: No Exam Narrative: EXAMINATION OF ORGAN SYSTEMS/BODY AREAS: Constitutional: Vital signs per nursing GENERAL:[No acute distress, non-toxic appearing.] HEAD: Normal with no signs of head trauma. EYES: EOMI, conjunctiva normal ENT: Hearing grossly intact LUNGS: Nonlabored breathing. Clear to auscultation bilaterally HEART: [Regular rate and rhythm] ABD: [Soft], [nontender to palpation] EXT: Normal range of motion SKIN: [No rashes or lesions.] NEURO: [Alert and oriented x 3. No gross focal sensory or strength deficits.] PSYCH: Normal affect Course Vital Signs Vital signs: Vital Signs Pulse Rate 80 02/01/25 04:39 Respiratory Rate 26 H 02/01/25 04:39 Blood Pressure 123/92 H 02/01/25 04:39 Pulse Oximetry 100 02/01/25 04:39 Oxygen Delivery Room Air 02/01/25 04:39 Temperature 98.3 F 02/01/25 04:49 Pulse Rate 80 02/01/25 06:25 Respiratory Rate 15 02/01/25 06:25 Blood Pressure 109/80 02/01/25 06:25 Pulse Oximetry 99 02/01/25 06:25 Oxygen Delivery Room Air 02/01/25 04:45 MDM - Chest Pain MDM Narrative Medical decision making narrative: ED COURSE AND MEDICAL DECISION MAKINF presenting with shortness of breath that started when she woke up, she has also been having sensation of chest heaviness ongoing for weeks, essentially since she was admitted. EKG done in triage negative for acute ischemic changes. Cardiac workup is initiated. EKG: Performed in triage and interpreted by me. Paced rhythm. Rate 80. Normal axis. W[place] normal. QRS duration normal. QTc normal. No pathologic Q waves. No ST segment elevation or depression to suggest acute ischemia. No RV strain pattern. Chest x-ray on my independent interpretation shows intact lead placement. AICD interrogated, did not show any episodes of arrhythmia HEART score is 0 with no acute ischemic changes on EKG and negative troponin making ACS unlikely. Wells low risk with negative PERC making PE unlikely. Presentation not consistent with dissection or aneurysm without radiation of pain or pulse deficits. CXR negative for mediastinal widening. No abdominal pain or signs of sepsis that would be concerning for esophageal perforation or mediastinitis. No cardiomegaly or JVD to suggest pericardial effusion/tamponade. Electrolytes are negative. Case discussed with her EP Dr. Magallon at [facility], who is comfortable with plan for outpatient management given her benign appearance and exam and workup here. On repeat evaluation just prior to discharge, the patient is no acute distress; symptoms resolved. I had a long discussion with the patient and with shared decision making, she is comfortable with outpatient management. She was given clear return instructions by myself in person as well as on discharge paperwork. Procedures: Pulse oximetry interpretation - not hypoxic. EKG interpretation. Review of medical records. Lab Data 02/01/25 04:58 02/01/25 04:58 Labs: Lab Results 02/01/25 Range/Units 04:58 WBC 7.9 (4.5-10.0) K/mm3 RBC 3.52 L (4.2-5.4) M/mm3 Hgb 11.8 L (12.0-15.0) g/dL Hct 36.9 L (37.0-47.0) % MCV 104.8 H (80-100) fl MCH 33.5 (26-34) pg MCHC 32.0 (32-36) g/dl RDW 12.2 (11.5-14.5) % Plt Count 191 (150-375) k/mm3 MPV 9.7 (7.4-10.4) fl Immature Gran % (Auto) 0.4 (0-0.5) % Neut % (Auto) 54.2 (45.5-73.1) % Lymph % (Auto) 29.1 (18.3-44.2) % [place] % (Auto) 14.4 H (2.6-8.5) % Eos % (Auto) 1.4 (0-4.4) % Baso % (Auto) 0.5 (0.2-1.2) % Lymph # (Auto) 2.29 (0.9-3.2) K/mm3 [place] # (Auto) 1.1 H (0.1-0.6) K/mm3 Eos # (Auto) 0.1 (0-0.3) K/mm3 Baso # (Auto) 0.0 (0.0-0.1) K/mm3 Abs Immat Gran (auto) 0.03 (0.00-0.031) K/mm3 Absolute Neuts (auto) 4.3 (1.3-6.7) K/mm3 Absolute Nucleated RBC 0.000 (0.0-0.012) K/mm3 Nucleated RBC % 0.0 (0.0-0.2) % PT 13.2 (11.1-14.7) Seconds INR 1.0 APTT 26.0 (22.3-36.8) Seconds Sodium 135 L (137-145) mmol/L Potassium 4.2 (3.4-5.0) mmol/L Chloride 102 (98-107) mmol/L Carbon Dioxide 26 (22-30) mmol/L Anion Gap 7 (4-12) mmol/L BUN 17 D (7-17) mg/dL Creatinine 0.85 (0.7-1.0) mg/dL Estim Creat Clear Calc 93 ml/min Estimated GFR > 60 (59 - ) Glucose 88 (65-110) mg/dL Calcium 9.0 (8.4-10.2) mg/dL Magnesium 1.8 (1.6-2.3) mg/dL Total Bilirubin 0.4 (0.2-1.3) mg/dL AST 23 (14-36) U/L ALT 14 (6-35) U/L Alkaline Phosphatase 43 (38-126) U/L Troponin I < 0.012 (0.000-0.034) ng/mL Total Protein 6.8 (6.3-8.2) g/dL Albumin 4.1 (3.5-5.1) g/dL Lipase 97 (23-300) U/L Discharge Plan Discharge Clinical Impression: Chest pain Patient Disposition: Home Condition: Stable Instructions: Chest Pain (ED) Additional Instructions: Please follow-up with your tower loader operator, if you have any further symptoms, including chest pain, shortness of breath, or anything else concerning, please come back to the ER. Patient Language: Kyrgyz Prescriptions: No Action albuterol sulfate 90 mcg/actuation HFA aerosol inhaler 2 puff INHALATION Q4-6H PRN (Reason: shortness of breath or wheezing) Follow-up/Referrals: PHYSICIAN NOT ON STAFF,NONSTAFF [Primary Care Provider]
== END 2025-02-01 06:48 | disposition home or self-care (01) ==
PROVIDERS: Emergency Provider Emergency Medicine
DX: R07.9 Chest pain, unspecified (principal); F17.290 Nicotine dependence, other tobacco product, uncomplicated; F12.90 Cannabis use, unspecified, uncomplicated; Z95.810 Presence of automatic (implantable) cardiac defibrillator
CPT/HCPCS: 36415; 71046; 80053; 83690; 83735; 84484; 85025; 85610; 85730; 93005; 99284; A9270

== ENCOUNTER 2025-03-17 13:44 | Emergency (ER) | payer OTHER, SELFPAY ==
[2025-03-17 13:45] VITALS: BP 132/86; PULSE 80; RESP 17; TEMP 37; O2SAT 100
--- NOTE | 2025-03-17 14:59 | ED.GENADULT ---
HPI - General Adult General Chief complaint: Extremity Injury, Upper Stated complaint: left hand tingling for 4 hours Time Seen by Provider: 03/17/25 14:28 Source: patient Mode of arrival: ambulatory Limitations: no limitations History of Present Illness HPI narrative: This is a 24-year-old female with history of prolonged QT status post ICD placement who presents the ED for left wrist pain. Patient states that she woke up this morning with left hand numbness. She has never had this before. She was concerned this may be related to her ICD placement from a few months ago. She does occasionally sleep with her hands up against her face with her wrist flexed. 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 Denies any known injuries. Related Data Home Medications ?Medication ?Instructions ?Recorded ?Confirmed ?Last Taken ?Type albuterol sulfate 90 mcg/actuation 2 puff inhalation Q4-6H PRN 12/26/24 12/26/24 Unknown History aerosol inhaler shortness of breath or wheezing Allergies Allergy/AdvReac Type Severity Reaction Status Date / Time gluten Allergy Gastrointestinal Verified 03/17/25 13:48 Upset Review of Systems Review of Systems: Gen.: Denies fevers or chills Eyes: Denies eye pain or visual change ENT: Denies congestion Respiratory: Denies shortness of breath or cough CV: Denies chest pain or palpitations GI: Denies abdominal pain nausea, emesis or diarrhea denies burning, urgency, frequency or hematuria Musculoskeletal: Denies back pain or muscle pain Neuro: As per HPI Skin: Denies rash Except as documented, all other systems reviewed and negative [facility] Past Medical History Medical History Bipolar affect, depressed ADHD Surgical History Surgical History History of surgical procedure on mouth Family History Family History Other Unknown family medical history Social History Social History Smoking status: Current some day smoker Tobacco type: e-cigarettes/vaping Alcohol intake: current Drinks per week: 7 Substance use: current Substance use type: marijuana Last use: 12/19/24 Lack of Transportation: No Lack of Food: Never True Current Housing: I Have Housing Concerned About Future Housing: No Difficulty Paying Gas/Electric Bills: No Difficulty Paying for Meds: No Currently Unemployed: No Education: High School Diploma/GED Difficulty w/ Childcare or Family Care: No Spiritual care concerns: No Exam Narrative: APPEARANCE: No acute distress, nontoxic, resting in bed HEENT: Normocephalic, atraumatic, OMM RESPIRATORY: No respiratory distress CARDIOVASCULAR: Appears well perfused ABDOMINAL: Nondistended MUSCULOSKELETAl: Moves all extremities. No obvious deformities. Positive Tinel sign to the left carpal tunnel. No bony tenderness to palpation to the left wrist or hand. NEURO: Awake and alert. SKIN:: Warm, dry. No rashes lesions or abrasions PSYCHIATRIC: Normal affect/mood, Course Vital Signs Vital signs: Vital Signs Temperature 98.6 F 03/17/25 13:45 Pulse Rate 80 03/17/25 13:45 Respiratory Rate 17 03/17/25 13:45 Blood Pressure 132/86 03/17/25 13:45 Pulse Oximetry 100 03/17/25 13:45 Oxygen Delivery Room Air 03/17/25 13:45 Temperature 98.6 F 03/17/25 13:45 Pulse Rate 80 03/17/25 13:45 Respiratory Rate 17 03/17/25 13:45 Blood Pressure 132/86 03/17/25 13:45 Pulse Oximetry 100 03/17/25 13:45 Oxygen Delivery Room Air 03/17/25 13:45 Medical Decision Making MDM Narrative Medical decision making narrative: 24-year-old female Presenting for left hand pain/numbness/tingling. On initial evaluation patient was in no acute distress afebrile, hemodynamic stable. Differentials include but are not limited to: Fracture, sprain, strain, contusion, carpal tunnel Exam is most consistent with carpal tunnel syndrome given the positive Tinel's sign. No known injury. Additional imaging is not indicated at this time. She was educated on ice and using a brace. She was advised follow-up with her PCP in the next week for re-evaluation. Patient was agreeable to this plan. Given strict return precautions. Medical Records Medical records reviewed: Yes I reviewed the external patient's medical records. Vital Signs Vital Signs: Vital Signs Temperature 98.6 F 03/17/25 13:45 Pulse Rate 80 03/17/25 13:45 Respiratory Rate 17 03/17/25 13:45 Blood Pressure 132/86 03/17/25 13:45 Pulse Oximetry 100 03/17/25 13:45 Oxygen Delivery Room Air 03/17/25 13:45 Temperature 98.6 F 03/17/25 13:45 Pulse Rate 80 03/17/25 13:45 Respiratory Rate 17 03/17/25 13:45 Blood Pressure 132/86 03/17/25 13:45 Pulse Oximetry 100 03/17/25 13:45 Oxygen Delivery Room Air 03/17/25 13:45 Lab Data Lab results reviewed: Yes I reviewed the patient's lab results. Discharge Plan Discharge Clinical Impression: Acute carpal tunnel syndrome Patient Disposition: Home Condition: Stable Instructions: Antibiotic Form, Carpal Tunnel Syndrome (DC) Additional Instructions: Apply ice to the wrist 50 minutes on 15 minutes off. He continued to have symptoms at night, try a wrist brace for carpal tunnel which he can not find any outpatient pharmacy. Follow-up with your PCP in the next week for re-evaluation. Return to the ED for any new or worsening symptoms. Patient Language: Welsh Prescriptions: No Action albuterol sulfate 90 mcg/actuation HFA aerosol inhaler 2 puff INHALATION Q4-6H PRN (Reason: shortness of breath or wheezing) Follow-up/Referrals: PHYSICIAN NOT ON STAFF,NONSTAFF [Primary Care Provider]
== END 2025-03-17 15:13 | disposition home or self-care (01) ==
PROVIDERS: Emergency Provider Student in an Organized Health Care Education/Training Program
DX: G56.02 Carpal tunnel syndrome, left upper limb (principal); F17.290 Nicotine dependence, other tobacco product, uncomplicated; F31.9 Bipolar disorder, unspecified; F90.9 Attention-deficit hyperactivity disorder, unspecified type
CPT/HCPCS: 99281